=== PATIENT | male | born 1965 | race Caucasian/White ===

== ENCOUNTER 2023-04-03 10:56 | Outpatient (OUT) | payer OTHER, SELFPAY | END 2023-04-03 10:57 | disposition home or self-care (01) | LOC: SLEEP 10:56 | PROVIDERS: PCP Psychiatry & Neurology Neurology; Visit Provider Psychiatry & Neurology Neurology | DX: G47.33 Obstructive sleep apnea (adult) (pediatric) (principal); F51.01 Primary insomnia; G47.11 Idiopathic hypersomnia with long sleep time | CPT/HCPCS: 95806 ==

== ENCOUNTER 2023-04-05 14:10 | Outpatient (OUT) | payer OTHER, MEDICARE, SELFPAY ==
--- NOTE | 2023-04-05 14:20 | MR_ITS ---
The [address] [address] Patient Name: GILBERT PAZ MRN: [id number] date: 1965 Sex: M Assigned Patient Location: RAD Current Patient Location: RAD Accession/Order Number: [id number] Exam Date: 04/05/2023 15:35 Report Date: 04/05/2023 15:48 At the request of: BHASKAR DÍAZ Procedure: MR head/brain wo con EXAM: MRI of the brain without IV contrast. REASON FOR EXAM: Memory Impairment R41.3 COMPARISON: None FINDINGS: No intracranial masses. No abnormal restricted diffusion or evidence of evolving infarct. No evidence of intracranial hemorrhage. No hydrocephalus. Minimal small vessel gliosis. No substantial cerebral volume loss. 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 Paranasal sinuses and mastoid air cells are clear. Remainder unremarkable. MR/MR head/brain wo con IMPRESSION: 1. No acute intracranial abnormalities. 2. 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 Electronically authenticated by: AMELIA ANDRE Date: 04/05/2023 15:48
--- NOTE | 2023-04-05 14:21 | XR_ITS ---
The [address] [address] Patient Name: GILBERT PAZ MRN: [id number] date: 1965 Sex: M Assigned Patient Location: RAD Current Patient Location: [facility] Accession/Order Number: [id number] Exam Date: 04/05/2023 14:30 Report Date: 04/05/2023 14:43 At the request of: BHASKAR DÍAZ Procedure: XR foreign body eye EXAMINATION: XR foreign body eye HISTORY: Foreign Body Eye COMPARISON: No relevant comparison available. FINDINGS: ORBITS: Negative for a metallic foreign body. OTHER: Negative. XR/XR foreign body eye IMPRESSION: No metallic foreign body in the orbits Electronically authenticated by: MEGHANA PAINTER Date: 04/05/2023 14:43
== END 2023-04-05 14:11 | disposition home or self-care (01) ==
PROVIDERS: PCP Psychiatry & Neurology Neurology; Visit Provider Psychiatry & Neurology Neurology
DX: R41.3 Other amnesia (principal)
CPT/HCPCS: 70030; 70551

== ENCOUNTER 2023-06-21 12:03 | Emergency (ER) | payer OTHER, MEDICARE, SELFPAY ==
[2023-06-21 12:11] VITALS: BP 153/88; PULSE 81; RESP 18; TEMP 36.9; O2SAT 98; BMI 25.1
--- OUTSIDE RECORDS SUMMARY | 2023-06-21 12:15 | XMS_ITS | CCD ---
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 Name Role Phone GAROGREY Primary Care Physician [phone] MIK REDDY Primary Care Physician Mik Reddy Primary Care Unavailable Jeffy Wong Attending Unavailable Jeffy Wong Admitting Unavailable SAMINA, DR REBECA Wolff Admitting Unavailable SAMINA, DR REBECA Wolff Attending Unavailable DRU, DR NAVARRO Primary Care Unavailable SAMINA, DR REBECA Wolff Consulting Unavailable PAIGE RUIZ Consulting Unavailable ARELY JEFFERSON Admitting Unavailable NILLARELY Attending Unavailable MISC, DR NAVARRO Primary Care Unavailable ARELY JEFFERSON Consulting Unavailable Karen Cardenas Primary Care Physician MIK REDDY Referring Unavailable MIK REDDY Admitting Unavailable MIK REDDY Attending Unavailable Jonathon Wiggins Consulting Unavaila Jonathon Bennett Consulting Unavaila Jonathon Bennett Consulting Unavaila Alesia Us Admitting Unavailable Alesia Mcgee Attending Unavailable Alesia Mcgee Referring Unavailable MIK REDDY W Referring Unavailable MIK REDDY W Admitting Unavailable MIK REDDY Attending Unavailable Jonathon Wiggins Consulting Unavaila Jonathon Bennett Consulting Unavaila Jonathon Bennett Consulting Unavaila ble [place], Bashar X Attending Unavailable [place], Bashar X Referring Unavailable [place], Bashar X Admitting Unavailable Tamir Still Admitting Unavailable Tamir Still Attending Unavailable DO Sayda Diaz Attending Unavailable NONE, XXXX Referring Unavailable [place], Bashar X Attending Unavailable MIK REDDY W Attending Unavailable MIK REDDY W Attending Unavailable MIK REDDY W Referring Unavailable NILL, Arely Wolff Attending Unavailable NILL, Arely Wolff Attending Unavailable NILL, Arely Wolff Attending Unavailable Theresa, Karen Mason Attending Unavailable Theresa, Karen Mason Attending Unavailable Theresa, Karen Mason Attending Unavailable Theresa, Karen Mason Attending Unavailable RAMBASEKRHETT Attending Unavailable Allergies Allergy Classification Reported Allergen(s) Allergy Type Date of Onset Reaction(s) Facility (8 sources) Bee/Wasp/Ant venom; Translations: [Bee Stings] Drug allergy Edema (finding) [facility] [place] (1 source) Amino Acids Drug Allergy 3 [facility] (1 source) carvedilol Drug Allergy 3 [facility] (1 source) Flupenthixol Drug Allergy 3 [facility] (1 source) Niacin Drug Allergy 3 [facility] (1 source) Thyrotropin-Rele asing Hormone Drug Allergy 3 [facility] (1 source) No Known Medication Allergies; Translations: [No Known Medication Allergies] Propensity to adverse reactions (disorder) [facility] Repository Medications Current Medications Medication Drug Class(es) Dates Sig (Normalized) Sig (Original) Albuterol (Eqv-ProAir HFA) 90 mcg/inh inhalation aerosol (3 sources) Start: 09-18-2022 take 2 puff(s) by inhalation every six hours Albuterol (Eqv-ProAir HFA) 90 mcg/inh inhalation aerosol 2 puff(s), Inhalation, q6hr, 8.5 gm, Refill(s) 3, [facility], 178, cm, 06/07/22 14:08:00 EST, Height/Length Dosing, 83.7, kg, 06/07/22 14:08:00 EST, Weight Dosing Start Date: 09/18/22 Status: Ordered aspirin 81 mg chewable tablet (8 sources) Platelet Aggregation Inhibitor, Nonsteroidal Anti-inflammatory Drug Start: 09-18-2022 take 1 tablet by mouth once daily aspirin 81 mg Chew Tab 81 mg = 1 tab(s), Oral, Daily, # 90 tab(s), Refills(s) 0, Pharmacy: [facility], 178, cm, 06/07/22 14:08:00 EST, Height/Length Dosing, 83.7, kg, 06/07/22 14:08:00 EST, Weight Dosing Start Date: 09/18/22 Status: Ordered Start: 05-30-2022 take 1 tablet by edwar once daily aspirin 81 mg Chew Tab 81 mg = 1 tab(s), Oral, Daily, # 90 tab(s), Refills(s) 0, other reason (Rx) Start Date: 05/30/22 Status: Ordered cephalexin 500 mg oral capsule (2 sources) Cephalosporin Antibacterial Start: 10-20-2021 End: 10-27-2021 take 1 capsule by mouth four times daily cephalexin 500 mg Cap 500 mg = 1 cap(s), Oral, QID, X 7 day(s), # 28 cap(s), Refills(s) 0, Pharmacy: [facility], 178, cm, 10/20/21 11:24:00 EDT, Height/Length Dosing, 79.6, kg, 10/20/21 11:24:00 EDT, Weight Dosing Start Date: 10/20/21 Stop Date: 10/27/21 Status: Ordered finasteride 5 mg oral tablet (7 sources) 5-alpha Reductase Inhibitor Start: 12-08-2021 take 1 tablet by mouth once daily finasteride 5 mg Tab 5 mg = 1 tab(s), Oral, Daily, # 30 tab(s), Refills(s) 0, Pharmacy: [facility], 178, cm, 10/20/21 11:24:00 EDT, Height/Length Dosing, 79.6, kg, 10/20/21 11:24:00 EDT, Weight Dosing Start Date: 12/08/21 Status: Ordered Start: 09-12-2021 take 1 tablet by edwar once daily finasteride 5 mg Tab 5 mg = 1 tab(s), Oral, Daily, # 30 tab(s), Refills(s) 0, Pharmacy: [facility], 178, cm, 09/12/21 10:40:00 EDT, Height/Length Dosing, 79.3, kg, 09/12/21 10:40:00 EDT, Weight Dosing Start Date: 09/12/21 Status: Ordered FLUoxetine 60 mg oral tablet (10 sources) Serotonin Reuptake Inhibitor Start: 09-18-2022 take 1 tablet by mouth once daily FLUoxetine 60 mg oral tablet 60 mg = 1 tab(s), Oral, Daily, # 90 tab(s), Refills(s) 1, Pharmacy: [facility], 178, cm, 06/07/22 14:08:00 EST, Height/Length Dosing, 83.7, kg, 06/07/22 14:08:00 EST, Weight Dosing Start Date: 09/18/22 Status: Ordered Start: 03-14-2022 take 1 tablet by [facility] once daily FLUoxetine 60 mg oral tablet 60 mg = 1 tab(s), Oral, Daily, # 90 tab(s), Refills(s) 1, Pharmacy: [facility], 178, cm, 02/23/22 8:55:00 EDT, Height/Length Dosing, 78.5, kg, 02/23/22 8:55:00 EDT, Weight Dosing Start Date: 03/14/22 Status: Ordered Start: 02-03-2022 take 1 capsule by [facility] once daily FLUoxetine 40 mg Cap 40 mg = 1 cap(s), Oral, Daily, # 30 cap(s), Refills(s) 5, Pharmacy: [facility], 178, cm, 01/24/22 8:03:00 EDT, Height/Length Dosing, 76.4, kg, 01/24/22 8:03:00 EDT, Weight Dosing Start Date: 02/03/22 Status: Ordered Start: 01-24-2022 take 1 capsule by [facility] once daily FLUoxetine 40 mg Cap 40 mg = 1 cap(s), Oral, Daily, # 30 cap(s), Refills(s) 0, other reason (Rx) Start Date: 01/24/22 Status: Ordered fluticasone propionate 0.05 mg/actuat metered dose nasal spray (7 sources) Corticosteroid Start: 02-09-2023 take 2 spray(s) nasal route once daily fluticasone Nasal 0.05 mg/inh [place] 2 spray(s), Nasal, Daily, 16 gram, Refill(s) 3, each nostril, [facility], 177, cm, 01/15/23 11:28:00 EDT, Height/Length Dosing, 85.6, kg, 01/15/23 11:28:00 EDT, Weight Dosing Start Date: 02/09/23 Status: Ordered Start: 12-06-2022 take 2 spray(s) nasa l route once daily fluticasone Nasal 0.05 mg/inh [place] 2 spray(s), Nasal, Daily, 16 gram, Refill(s) 3, each nostril, [facility], 177.8, cm, 10/30/22 22:19:00 EDT, Height/Length Dosing, 82, kg, 10/30/22 22:19:00 EDT, Weight Dosing Start Date: 12/06/22 Status: Ordered Start: 01-24-2022 take 2 spray(s) nasa l route once daily fluticasone 0.05 mg/inh Nasal [place] 2 spray(s), Nasal, Daily, 16 gram, Refill(s) 2, each nostril, [facility], 178, cm, 01/24/22 8:03:00 EDT, Height/Length Dosing, 76.4, kg, 01/24/22 8:03:00 EDT, Weight Dosing Start Date: 01/24/22 Status: Ordered fluticasone 0.05 mg/inh Nasal [place] (5 sources) Start: 03-14-2022 take 2 spray(s) nasal route once daily fluticasone 0.05 mg/inh Nasal [place] 2 spray(s), Nasal, Daily, 16 gram, Refill(s) 2, each nostril, [facility], 178, cm, 02/23/22 8:55:00 EDT, Height/Length Dosing, 78.5, kg, 02/23/22 8:55:00 EDT, Weight Dosing Start Date: 03/14/22 Status: Ordered meloxicam 15 mg oral tablet (3 sources) Nonsteroidal Anti-inflammatory Drug Start: 12-12-2022 End: 06-10-2023 take 1 tablet by mouth once daily meloxicam 15 mg Tab 15 mg = 1 tab(s), Oral, Daily, X 90 day(s), # 90 tab(s), Refills(s) 1, Pharmacy: [facility], 177.8, cm, 12/12/22 7:58:00 EDT, Height/Length Dosing, 85.2, kg, 12/12/22 7:58:00 EDT, Weight Dosing Start Date: 12/12/22 Stop Date: 06/10/23 Status: Ordered Ventolin HFA 90 mcg/inh Aerosol (9 sources) Start: 12-13-2021 take 2 puff(s) by inhalation four times daily for wheezing Ventolin HFA 90 mcg/inh Aerosol 2 puff(s), Inhalation, QID for wheezing, 18 gram, Refill(s) 6, [facility], 178, cm, 12/13/21 8:56:00 EDT, Height/Length Dosing, 79.1, kg, 12/13/21 8:56:00 EDT, Weight Dosing Start Date: 12/13/21 Status: Ordered Completed/Discontinued Medications Medication Drug Class(es) Dates Sig (Normalized) Sig (Original) rizatriptan 10 mg oral tablet (11 sources) Serotonin-1b and Serotonin-1d Receptor Agonist Start: 02-01-2022 take 1 tablet by mouth every two hours as needed, then take 3 tablets by mouth every twenty-four hours as needed rizatriptan 10 mg Tab 10 mg = 1 tab(s), Oral, Daily, PRN for migraine headache, may repeat dose every 2 hours up to a maximum of 30 mg in 24 hours, # 12 tab(s), Refills(s) 0, Pharmacy: [facility], 178, cm, 01/24/22 8:03:00 EDT, Height/Length Dosing, 76.4, kg, 01/24/22 8:03:00 EDT, Weight Dosing Start Date: 02/01/22 Status: Ordered SUMAtriptan 25 mg oral tablet (1 source) Serotonin-1b and Serotonin-1d Receptor Agonist Start: 01-24-2022 SUMAtriptan 25 mg Tab 25 mg = 1 tab(s), Oral, Daily, PRN for migraine headache, may repeat dose after 2 hours up to a maximum of 200 mg in 24 hours, # 9 tab(s), Refills(s) 0, Pharmacy: [facility], 178, cm, 01/24/22 8:03:00 EDT, Height/Length Dosing, 76.4, kg, 09... Start Date: 01/24/22 Status: Ordered Problems Active Problems Problem Classification Problem Date Documented Da te Episodic/Chronic Abdominal hernia (2 sources) Inguinal hernia 08-01-2021 Episodic Anxiety disorders (3 sources) Obsessive-compulsive disorder; Translations: [Anxiety] 12-13-2021 Chronic Diabetes mellitus without complication (20 sources) Type 2 diabetes mellitus; Translations: [Type 2 diabetes mellitus without complication] Onset: 10-24-2021 08-01-2021 Chronic Essential hypertension (20 sources) Hypertensive disorder; Translations: [Essential hypertension] Onset: 09-12-2021 08-01-2021 Chronic Gout and other crystal arthropathies (2 sources) Gout 02-06-2023 Chronic Headache; including migraine (12 sources) Headache disorder; Translations: [Headache] Onset: 02-22-2022 01-28-2022 Episodic Hyperplasia of prostate (20 sources) Benign prostatic hypertrophy with outflow obstruction; Translations: [Benign prostatic hyperplasia with lower urinary tract symptoms] Onset: 09-12-2021 02-07-2021 Chronic Lung disease due to external agents (3 sources) Lung disease due to external agents; Translations: [Respiratory conditions due to other specified external agents] Onset: 09-12-2021 Episodic Mood disorders (16 sources) Mood disorder; Translations: [Unspecified mood [affective] disorder] Onset: 02-22-2022 Chronic Nonspecific chest pain (14 sources) Chest pain; Translations: [Chest pain, unspecified] Onset: 10-23-2021 Episodic Other aftercare (1 source) [facility] (current) use of aspirin; Translations: [SENIOR ESCROW OFFICER CURRENT USE OF ASPIRIN] Onset: 07-05-2022 Episodic Other aftercare (1 source) Other shelter (current) drug therapy; Translations: [OTH SENIOR ESCROW OFFICER CURRENT DRUG THERAPY] Onset: 07-05-2022 Episodic Other and unspecified benign neoplasm (1 source) Benign lipomatous neoplasm of skin and subcutaneous tissue of head, face and neck; Translations: [MILAGRO LIPOMAT NIKO SKIN SUBQ HEAD NECK] Onset: 07-05-2022 Episodic Other and unspecified benign neoplasm (1 source) Lipoma of head and neck; Translations: [Benign lipomatous neoplasm of skin and subcutaneous tissue of head, face and neck] Onset: 07-12-2022 Episodic Other and unspecified benign neoplasm (5 sources) Lipoma of skin and subcutaneous tissue of scalp 07-12-2022 Episodic Other connective tissue disease (20 sources) Fibromyalgia 02-07-2021 Episodic Other connective tissue disease (4 sources) Olecranon bursitis; Translations: [Olecranon bursitis, unspecified elbow] Onset: 10-20-2021 Episodic Other connective tissue disease (1 source) Fibromyalgia; Translations: [FIBROMYALGIA] Onset: 07-05-2022 Episodic Other diseases of kidney and ureters (1 source) Urinary tract obstruction; Translations: [Other obstructive and reflux uropathy] Onset: 09-12-2021 Episodic Other ear and sense organ disorders (13 sources) Tinnitus; Translations: [Tinnitus, unspecified ear] Onset: 02-23-2022 Episodic Other gastrointestinal disorders (1 source) Other intra-abdominal and pelvic swelling, mass and lump; Translations: [Other intra-abdominal and pelvic swelling, mass and lump] Onset: 09-12-2021 Episodic Other gastrointestinal disorders (18 sources) Groin mass 09-12-2021 Episodic Other liver diseases (20 sources) Elevated liver enzymes level 08-01-2021 Episodic Other lower respiratory disease (2 sources) Solitary nodule of lung; Translations: [Solitary pulmonary nodule] Onset: 08-26-2021 Episodic Other lower respiratory disease (1 source) Chronic cough; Translations: [Chronic cough] Onset: 08-26-2021 Episodic Other lower respiratory disease (2 sources) Hemoptysis 08-01-2021 Episodic Other lower respiratory disease (20 sources) Nodule of lung 08-01-2021 Episodic Other nervous system disorders (11 sources) 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 Other nutritional; endocrine; and metabolic disorders (9 sources) Overweight in adulthood with body mass index of 25 or more but less than 30; Translations: [Body mass index (BMI) 25.0-25.9, adult] Onset: 10-20-2021 Episodic Other nutritional; endocrine; and metabolic disorders (2 sources) Body mass index 25-29 - overweight 10-20-2021 Episodic Other screening for suspected conditions (not mental disorders or infectious disease) (1 source) Procedure carried out on subject; Translations: [Encounter for screening for other disorder] Onset: 02-22-2022 Episodic Other skin disorders (17 sources) Mass of head 08-01-2021 Episodic Other skin disorders (2 sources) Mass of body structure; Translations: [Localized swelling, mass and lump, head] Onset: 05-30-2022 Episodic Other skin disorders (3 sources) Localized swelling, mass and lump, head; Translations: [LOCALIZED SWELLING MASS AND LUMP HEAD] Onset: 06-28-2022 Episodic Other upper respiratory disease (18 sources) Allergic disorder of respiratory system 09-12-2021 Chronic Otitis media and related conditions (12 sources) Dysfunction of eustachian tube; Translations: [Eustachian tube disorder] Onset: 05-30-2022 01-28-2022 Episodic Residual codes; unclassified (20 sources) Memory impairment 02-07-2021 Episodic Residual codes; unclassified (6 sources) Amnesia; Translations: [Other amnesia] Onset: 09-12-2021 Episodic Residual codes; unclassified (3 sources) Patient encounter status; Translations: [Other specified health status] Onset: 10-20-2021 Episodic Residual codes; unclassified (1 source) Other amnesia; Translations: [Other amnesia] Onset: 01-18-2022 Episodic Residual codes; unclassified (2 sources) Body mass index 20-24 - normal; Translations: [Body mass index (BMI) 24.0-24.9, adult] Onset: 02-23-2022 Episodic Residual codes; unclassified (2 sources) Insomnia 02-06-2023 Episodic Residual codes; unclassified (2 sources) Poor short-term memory 02-09-2023 Episodic Screening and history of mental health and substance abuse codes (17 sources) Tobacco use and exposure - finding 10-20-2021 Chronic Spondylosis; intervertebral disc disorders; other back problems (3 sources) Degeneration of cervical intervertebral disc 12-12-2022 Chronic Spondylosis; intervertebral disc disorders; other back problems (1 source) Cervical radiculopathy; Translations: [Radiculopathy, cervical region] Onset: 02-23-2022 Episodic Unclassified (5 sources) Body mass index 20-24 - normal 12-13-2021 Past or Other Problems Problem Classification Problem Date Documented Da te Episodic/Chronic Other lower respiratory disease (1 source) Shortness of breath; Translations: [SHORTNESS OF BREATH] Onset: 10-24-2021 Episodic Poisoning by nonmedicinal substances (1 source) Toxic effect of smoke, accidental (unintentional), initial encounter; Translations: [TOXIC EFFECT SMOKE ACC INITIAL ENC] Onset: 10-24-2021 Episodic Results Test Name Value Interpretation Reference Range Facility Consultation Noteon 04-19-20 23 Consultation Note [id number] IFF Normal [facility] Ambulatory Visit Summaryon 1 05-26-2022 Ambulatory Visit Summary GILBERT PAZ :1965 Visit Date:03/26/2023 Ambulatory Visit Instructions Your Diagnosis Exposure to toxin Allergies Short-term memory loss, Memory impairment Sensitive to smells Your Care Team Attending Physician - Karen Garduno Primary Care Physician - Karen Garduno This Is Your Medications List albuterol (Albuterol (Eqv-ProAir HFA) 90 mcg/inh inhalation aerosol) aspirin (aspirin 81 mg Chew Tab) budesonide-formoterol (Symbicort 80/4.5 inhalation aerosol with adapter) fluoxetine (FLUoxetine 60 mg oral tablet) fluticasone nasal (fluticasone Nasal 0.05 mg/inh [place]) meloxicam (meloxicam 15 mg Tab) rizatriptan (rizatriptan 10 mg Tab) Procedures Performed Excision of lipoma (06/28/2022), Meniscal repair, Repair of ligament of knee joint, Repair of tendon of hand, Tonsillectomy. Discharge Vitals Temperature (Oral) 37.8 ?C Heart Rate (Peripheral) 68 Respiratory Rate 18 Blood Pressure 142/84 Height 177 cm Height 70 in Weight 88.8 kg Weight 195.36 lb BMI 28.34 What to do next Scheduled Follow-Up Appointments Sunday 8:20 AM EST With: Karen Garduno Where: [facility] [place] Normal [facility] Family Medicine Office/Clini c Noteon 03-26-2023 Family Medicine Office/Clinic Note HPI Staff Gilbert is a 57 year old male presenting for 6 week follow up. Has a stack of paper and wants to discuss disability dx today. Said he saw Dr Fontana, and that he was dx with OCD, but told by them he had fibromyalgia. Memory Impairment: JASON 02/09/23 was referred to [facility] in [place] Nodule of left lung/ chest pain : JASON 02/09/[address] Hernandez for eval. pt started on Symbicort. Pt has a hernia, LLQ, said it popped out this AM, causing some pain. History of Present Illness pt presents today for follow up Review of Systems PHQ Score Initial Depression Screen Score: 0 SCORE ROS - Provider Constitutional: no fever, no chills, no sweats, no fatigue Respiratory: no shortness of breath, no cough, no orthopnea, no wheezing. Cardiovascular: no chest pain, no palpitations, no edema. Neurologic: no headache, no dizziness, no numbness, no weakness. Physical Exam Vitals & Measurements T: 37.8 ?C(Oral) HR: 68(Peripheral) RR: 18 BP: 142/84 SpO2: 98% HT: 70 in HT: 177 cm WT: 88.8 kg WT: 195.36 lb BMI: 28.34 General: alert, no acute distress ENMT: oral mucosa moist, no pharyngeal erythema or exudate Cardiovascular: regular rate and rhythm, normal peripheral perfusion Respiratory: Lungs CTA, respirations non labored Extremities: no deformity, no trauma Neurological: oriented x 4, LOC appropriate for age, CN II-XII intact, motor strength equal & normal bilaterally, speech normal Assessment/Plan 1. Exposure to toxin (Z77.29: Contact with and (suspected) exposure to other hazardous substances) pt presents today for follow up on memory loss, over sensitivity to smells. pt was seen by neuro and they ordered additional testing but he was not able to complete the MRI due to multiple factors. he basically walked out and did not have it completed. pt has a pack of old paper work from when he had air quality testing done at his home. the results detected pyripoxyren, phosmet. captan. pt is very concerned about exposure to pesticides and would like further testing. will refer to hematology. pt is very irritated during visit and states this has been going on for years and no one will do anything about it. pt was redirected several times and educated on the importance of being compliant with what specialists are ordering for them. he was also seen by Dr. Hernandez and he ordered a sleep study which he is also refusing to do. Provider informed him that we are trying to get him some answers but if he doesn't follow through non of us are able to help him. pt then starts saying that his hernia keeps popping out.. but it only pops out when a cell phone is being used around him or he smells smoke. pt was encouraged to call the surgeon that is following him for the hernia. pt is very hard to follow at times and has grandiose ideas and flight of ideas as well. will refer to hematology and submersible pilot. RTC 3 months Ordered: [facility] External Ambulatory Referral 2. Allergies (T78.40XA: Allergy, unspecified, initial encounter) pt states he feels he has environmental allergies but has never been tested for anything. will refer to submersible pilot. Ordered: [facility] External Ambulatory Referral [facility] External Ambulatory Referral 3. Short-term memory loss, (R41.3: Other amnesia)Memory impairment pt still having memory loss. encouraged him to follow up with neurologist. Ordered: [facility] External Ambulatory Referral [facility] External Ambulatory Referral 5. 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 discussed possible ENT referral. but I would like for him to have MRI of brain completed first. Ordered: [facility] External Ambulatory Referral [facility] External Ambulatory Referral 6. Inguinal hernia (K40.90: Unilateral inguinal hernia, without obstruction or gangrene, not specified as recurrent) pt encouraged to contact surgeon that has been following him for this 7. BMI 28.0-28.9,adult (Z68.28: Body mass index [BMI] 28.0-28.9, adult) BMI education complete Follow-up No qualifying data available Problem List/Past Medical History Ongoing Allergies Anxiety Bipolar affective disorder, currently manic, moderate BMI 26.0-26.9,adult BMI 28.0-28.9,adult BPH with urinary obstruction Chest pain DDD (degenerative disc disease), cervical Elevated liver enzymes Eustachian tube dysfunction Exposure to toxin Fibromyalgia Gout Headache disorder HTN (hypertension) Inguinal hernia Insomnia Left cervical radiculopathy Left groin mass Lipoma of scalp Lung disease due to allergies Memory impairment Memory loss Mood disorder Nodule of left lung Sensitive to smells Short-term memory loss Tinnitus Tobacco non-user Type 2 diabetes mellitus Historical Type II diabetes mellitus Procedure/Surgical History Excision of lipoma (06/28/2022), Meniscal repair, Repair of ligament of knee joint, Repair of tendon of hand, Tonsillectomy. Medications Albuterol (Eqv-ProAir HFA) 90 mcg/inh (more content not included)... Normal [facility] Comment on above: Result Comment: Elec tronically Signed By: Karen Garduno\.br\Date and Time Signed: 03/26/23 11:00 EST Physician Referralon 023 Physician Referral [id number] [id number] TIFF Normal [facility] Physician Referral [id number] [id number] TIFF Normal [facility] CHEMISTRYOrdered By: SYSTEM SYSTEM on 03-14-2023 Cobalamin (Vitamin B12) [Mass/Vol] 293 pg/mL Normal 50 - 1500 pg/mL [facility] Remisol Folate [Mass/Vol] 11.0 ng/mL Normal >=6.7ng/mL [facility] Re misol TSH Qn 0.72 m[IU]/L Normal 0.34 - 5.60 mcIU/mL [facility] Remisol Consultation Noteon 03-14-20 Consultation Note [id number] IFF Normal [facility] Consultation Note [id number]#1.00T IFF Normal [facility] Folateon 03-14-2023 Folate [Mass/Vol] 11.0 ng/mL Normal >=6.7 [facility] Comment on above: Performed By: #### 2 [id number], [id number], [id number] ####[facility] [id number] [place] [address] Physician Orderon 03-14-2023 Physician Order [id number]#1.00T IFF Normal [facility] TSHon 03-14-2023 TSH Qn 0.72 m[IU]/L Normal 0.34-5.60 [facility] Comment on above: Performed By: #### 2 [id number], [id number], [id number] ####[facility] [address] [place] [address] Vit B12on 03-14-2023 Cobalamin (Vitamin B12) [Mass/Vol] 293 pg/mL Normal 50-1500 [facility] Comment on above: Performed By: #### 2 [id number], [id number], [id number] ####[facility] [address] [place] [address] Consent for Treatmenton Consent for Treatment [id number]#1.00T IFF Normal [facility] Consultation Noteon 02-24-20 Consultation Note [id number]#1.00T IFF Normal [facility] Consultation Noteon 02-22-20 Consultation Note [id number]#1.00TI FF Normal [facility] Physician Orderon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 radiculopathy means that a nerve in the neck (a cervical nerve) is pinched or bruised. This can happen because of an injury to the cervical spine (vertebrae) in the neck, or as a normal part of getting older. This condition can cause pain or loss of feeling (numbness) that runs from your neck all the way down to your arm and fingers. Often, this condition gets better with rest. Treatment may be needed if the condition does not get better. What are the causes? ? A neck injury. ? A bulging disk in your spine. ? Sudden muscle tightening (muscle spasms). ? Tight muscles in your neck due to overuse. ? Arthritis. ? Breakdown in the bones and joints of the spine (spondylosis) due to getting older. ? (more content not included)... Normal [facility] ED Patient Summaryon 023 ED Patient Summary (Inserted Image. Ashanti ble to display) [address] [address] Patient Discharge Instructions Person Information Name: GILBERT PAZ Age: 56 Years Arrival Date: 10/30/2022 22:06:10 Discharge Diagnosis: Cervical radiculopathy; Chest pain Primary Care Physician: MIK REDDY CNP Provider Information Primary Provider: Sayda Diaz DO Advanced Plant Maintenance Worker:None The exam and treatment you received in the Emergency Department were for an urgent problem and are not intended as complete care. It is important that you follow up with a doctor, nurse practitioner, or physician?s senior agricultural assistant for ongoing care. If your symptoms become worse or you do not improve as expected and you are unable to reach your usual health care provider, you should return to the Emergency Department. We are available 24 hours a day. JACKSONGILBERT has been given the following list of patient education materials, prescriptions and follow-up instructions: Follow-up Instructions: With: Address: When: MIK REDDY [address] [place], [place] [id number] Business (1) In 3 days 11/03/2022 Comments: You can use ibuprofen, Tylenol every 6 hours as needed for pain. You can take the steroids once daily until you have completed the course. You can use Robaxin every 8 hours as needed for pain. Please follow-up with your primary care doctor in the next 2 to 3 days. Please return to the ED for any new or worsening symptoms. In the event that this physician does not participate in your insurance network, please consult with your insurance company to find a nearby participating provider. Patient Education Materials: Nonspecific Chest Pain, Adult, Xubf-pm-Woah; Cervical Radiculopathy, Sldw-np-Clxh A MESSAGE TO ALL PATIENTS REGARDING OPIOIDS PRESCRIPTION OPIOIDS: WHAT YOU NEED TO KNOW Prescription opioids can be used to help relieve oaqgsnnj-he-folphu pain and are often prescribed following a surgery or injury, or for certain health conditions. These medications can be an important part of the treatment but also come with serious risks. It is important to work with your healthcare provider to make sure you are getting the safest, most effective care. WHAT ARE THE RISKS AND SIDE EFFECTS OF OPIOID USE? Prescription opioids carry serious risks of addiction and overdose, especially with prolonged use. An opioid overdose, often marked by slowed breathing, can cause sudden . The use of prescription opioids can have a number of side effects as well, even when taken as directed: ? Tolerance?meaning you might need to take more of the medication for the same pain relief ? Physical dependence?meaning you have symptoms of withdrawal when a medication is stopped ? Increased sensitivity to pain ? Constipation ? Nausea, vomiting, and dry mouth ? Sleepiness and dizziness ? Confusion ? Depression ? Low levels of testosterone that can result in lower sex drive, energy, and strength ? Itching and sweating RISKS ARE GREATER WITH: ? History of drug misuse, substance use disorder, or overdose ? Mental health conditions (such as depression or anxiety) ? Sleep apnea ? Older age (65 years and older) ? Avoid alcohol while taking prescription opioids. Also, unless specifically advised by your health care provider, medications to avoid include: ? Benzodiazepines (such as Xanax or Valium) ? Muscle relaxants (such as Soma or Flexeril) ? Hypnotics (such as Ambien or Lunesta) ? Other prescription opioids KNOW YOUR OPTIONS Talk to your health care provider about ways to manage your pain that don?t involve prescription opioids. Some of these options may actually work better and have fewer risks and side effects. Options may include: ? Pain relievers such as acetaminophen, ibuprofen, and naproxen ? Some medication that are also used for depression or seizures ? Physical therapy and exercise ? Cognitive behavioral therapy, a psychological, goal-directed approach, in which patients learn how to modify physical, behavioral, and emotional triggers of pain and stress. IF YOU ARE PRESCRIBED OPIOIDS FOR PAIN: ? Never take opioids in greater amounts or more often than prescribed. ? Follow up with your primary health care provider. o Work together to create a plan on how to manage your pain. o Talk about ways to help manage your pain that don?t involve prescription opioids. o Talk about any and all concerns and side effects. ? Help prevent misuse and abuse o Never sell or share prescription opioids. o Never use another person?s prescription opioids. ? Store prescription opioids in a secure place and out of reach of others (this may include visitors, children, friends, and family). ? Safely dispose of unused prescription opioids: Find your community drug take-back program or your pharmacy mail-back program, or fl (more content not included)... Normal [facility] Monitor Recordon 10-31-2022 Monitor Record [id number]#1.00 CD:127 Normal [facility] PT & PTTon 10-31-2022 aPTT Coag (PPP) [Time] 29.6 second(s) Normal 25.1-36.5 [facility] Comment on above: Result Comment: Para meter 15 days - 4 weeks 1 - 5 months 6 - 11 months 1 - 5 years 6 - 10 years 11 - 17 years PTT Mean: 35.4 (27.6-45.6) Mean: 33.5 (24.8-40.7) Mean: 32.4 (25.1-40.7) Mean: 31.6 (24.0-39.2) Mean: 31.6 (26.9-38.7) Mean: 31.0 (24.6-38.4) Pediatric Reference ranges were obtained from a study by Jose Luis Barron et al. prepared from 1437 samples obtained at 7 different centers using the same coagulation reagent and instrumentation as [facility]. Currently there are no coagulation studies available worldwide for children to 14 days, and no normal ranges. Heparin therapeutic range (represented by Anti-Factor Xa activity of 0.2 - 0.4 U/mL) corresponds to PTT of 56.6 - 109.0 sec. Performed By: #### 2 [id number], [id number], [id number], [id number], [id number], [id number] ####[facility] [address] [place] [address] INR Coag (PPP) [Relative time] 1.0 {INR} Invalid Interpretation Code [facility] Comment on above: Result Comment: INR results are specifically intended to assess patients stabilized on long-term Anticoagulation therapy suggested INR?s ?Less Intensive Anticoagulation? 2.0 ? 3.0 Conventional Range 3.0 ? 4.5 Performed By: #### 2 [id number], [id number], [id number], [id number], [id number], [id number] ####[facility] [address] [place] [address] PT Coag (PPP) [Time] 10.5 second(s) Normal 9.4-12.5 [facility] Comment on above: Result Comment: 15 d ays - 4 weeks 1 - 5 months 6 -11 months 1 ? 5 years 6 ? 10 years 11 -17 years Mean: 11.2 (9.5 ? 12.6) Mean: 11.0 (9.7 ? 12.8) Mean: 11.0 (9.8 ? 13.0) Mean: 11.3 (9.9 ? 13.4) Mean: 11.7 (10.0 ? 14.6) Mean: 11.8 (10.0 - 14.1) Pediatric Reference ranges were obtained from a study by Jose Luis Barron et al. prepared from 1437 samples obtained at 7 different centers using the same coagulation reagent and instrumentation as [facility]. Currently there are no coagulation studies available worldwide for children to 14 days, and no normal ranges. Performed By: #### 2 [id number], [id number], 9451646, [id number], [id number], [id number] ####[facility] [address] [place] [address] RAD - Preliminary Cat Scan R eporton 10-31-2022 RAD - Preliminary Cat Scan Report [id number]#1.00 CD:127 Normal [facility] Troponin 0 Hr.on 10-31-2022 Troponin I.cardiac [Mass/Vol] 4.00 pg/mL Low 15.90-38.40 [facility] Comment on above: Result Comment: The 95% CI (Confidence Interval) PPV (Positive Predictive Value) for myocardial infarction in females is 38 pg/mL, in males 51 pg/mL. The results should be used in conjunction with clinical conditions of myocardial infarction. (Access High Sensitivity Troponin I Instructions For Use, [employer], November 2017) Performed By: #### 2 [id number], [id number], [id number], [id number], [id number] ####[facility] [address] [place] [address] Troponin 3 Hr.on 10-31-2022 Troponin I.cardiac [Mass/Vol] 3.70 pg/mL Low 15.90-38.40 [facility] Comment on above: Result Comment: The 95% CI (Confidence Interval) PPV (Positive Predictive Value) for myocardial infarction in females is 38 pg/mL, in males 51 pg/mL. The results should be used in conjunction with clinical conditions of myocardial infarction. (Access High Sensitivity Troponin I Instructions For Use, [employer], November 2017) Performed By: #### 1 [id number] ####[facility] [address] [place] [address] XR Chest Single Viewon 10-31 XR Chest Single View Exam Date/Time: 10/30/2022 23:14 EDT Reason for Exam: Chest pain Report IMPRESSION: The study is within normal limits. CLINICAL HISTORY: Chest pain EXAMINATION: XR Chest Single View COMPARISON: FINDINGS: The cardiomediastinal silhouette is unremarkable. The lungs are free of infiltrates effusions or consolidations. There are no acute osseous changes. Ordering Provider: Sayda Diaz FINAL REPORT Dictated: 10/31/2022 9:08 am Horacio Vazquez MD, V. Signed (Electronic Signature): 10/31/2022 9:08 am Signed by: Horacio Vazquez MD, V. Transcribed by: MOHINI Technologist: SHAHRAM Technical Comments Radiation Dose: Ka,r in mGy = na DAP = na Normal [facility] eGFRon 10-31-2022 GFR/1.73 sq M.predicted among non-blacks MDRD (S/P/Bld) [Vol rate/Area] 103 mL/min/1.73 m2 Normal >=59 [facility] Comment on above: Order Comment: Order added by Discern Expert. 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 Kidney failure is indicated at less than 15 mL/min/1.73m2. Performed By: #### 2 [id number], [id number], [id number], 34108055, [id number], [id number] ####[facility] [address] [place] [address] Physician Referralon 023 Physician Referral [id number]#1.00 CD:127 Normal [facility] CT Chest w/o Contraston CT Chest w/o Contrast Exam Date/Time: 09/01/2022 07:10 EDT Reason for Exam: R91.1;Lung nodule Report IMPRESSION: 4 MM CALCIFIED NODULE LEFT UPPER LOBE WHICH IS CONSIDERED A BENIGN GRANULOMA. CT IS ESSENTIALLY NEGATIVE EXAM: CT Chest w/o Contrast INDICATION: Shortness of breath Lung nodule, R91.1 TECHNIQUE: Helical CT was performed through the chest without IV contrast. COMPARISON: None FINDINGS Lungs: 4 mm calcified nodule left upper lobe (3-63). This is a benign granuloma. No parenchymal lung nodule Pleura: No pleural effusion or thickening. Mediastinum: Mediastinum and georgina are normal. There are no pathologically enlarged lymph nodes. Vascular structures: There is no evidence for thoracic aortic aneurysm or dissection. Minimal coronary artery calcifications noted. Chest wall: The chest wall and lower neck are normal. Upper abdomen: The visualized portions of the upper abdomen are unremarkable. Bones: No aggressive skeletal lesions. All CT scans at this facility use dose modulation, iterative reconstruction, and/or weight based dosing when appropriate to reduce radiation dose to as low as reasonably achievable. Ordering Provider: Bharti Figueroa FINAL REPORT Dictated: 09/01/2022 4:12 pm Vitaly Jean MD Signed (Electronic Signature): 09/01/2022 4:12 pm Signed by: Vitaly Jean MD Transcribed by: MOHINI Technologist: TAMEKA [facility] Consent for Treatmenton Consent for Treatment [id number] D:127 [facility] Pre-Certification Formon Pre-Certification Form [id number]#1.00 CD:127 [facility] Ambulatory Visit Summaryon 0 07-12-2022 Ambulatory Visit Summary GILBERT PAZ :1965 Visit Date:07/12/2022 Ambulatory Visit Instructions Your Diagnosis Lipoma of scalp Your Care Team Attending Physician - ROSS MAGDALENO, Arely Wolff Primary Care Physician - MIK REDDY CNP This Is Your Medications List Contact prescribing physician if questions or concerns albuterol (Ventolin HFA 90 mcg/inh Aerosol) aspirin (aspirin 81 mg Chew Tab) fluoxetine (FLUoxetine 60 mg oral tablet) fluticasone nasal (fluticasone 0.05 mg/inh Nasal Olive) rizatriptan (rizatriptan 10 mg Tab) Procedures Performed Excision of lipoma (06/28/2022), Meniscal repair, Repair of ligament of knee joint, Repair of tendon of hand, Tonsillectomy. What to do next Scheduled Follow-Up Appointments Sunday 9:30 AM EDT Where: [facility] [place] Normal [facility] General Surgery Office/Clini c Noteon 07-12-2022 General Surgery Office/Clinic Note Chief Complaint post operative follow up HPI Staff 14 day post operative follow up post excisional biopsy left parietal scalp lipoma. Reports moderate discomfort, no use of pain medication. Scant serous drainage. History of Present Illness 2 weeks s/p excisional biopsy left parietal scalp lipoma, doing well, mild soreness; pathology consistent with lipoma. Review of Systems ROS - Provider Constitutional: no fever, no sweats, no weight loss. Eyes: no glasses, no blurred vision, no visual loss. ENMT: no dentures, no hoarseness, no swallowing difficulties, no hearing loss, no ear infection(s), no nose bleeds. Cardiovascular: normal blood pressure, no chest pain, regular heartbeat, no heart murmur. Respiratory: no shortness of breath, no cough, no asthma, no wheezing. Gastrointestinal: no nausea, no vomiting, no diarrhea, no constipation, no blood in stool, no change in bowel habits, no abdominal pain, no hepatitis. Genitourinary: no kidney stones, no urine infection, no dysuria. Musculoskeletal: no pain, no weakness. Skin: no changing moles, no rash, no skin lumps. Neurologic: no seizures, no epilepsy, no headache. Psychiatric: no emotional or psychiatric problem. Heme/Lymph: no bleeding problems, no anemia, no blood clots, no transfusions. Allergy/Immunologic: no swollen lymph nodes/glands, no IV drug abuse. Other: Additional ROS info: Except as noted in the above Review of Systems and in the History of Present Illness, all other systems have been reviewed and are negative or noncontributory. Assessment/Plan 1. Lipoma of scalp (D17.0: Benign lipomatous neoplasm of skin and subcutaneous tissue of head, face and neck) doing well, sutures removed; call with problems/questions. Follow-up No qualifying data available Problem List/Past Medical History Ongoing BMI 26.0-26.9,adult BPH with urinary obstruction Chest pain Elevated liver enzymes Eustachian tube dysfunction Fibromyalgia Headache disorder HTN (hypertension) Left cervical radiculopathy Left groin mass Lipoma of scalp Lung disease due to allergies Mass of head Memory impairment Mood disorder Nodule of left lung Tinnitus Tobacco non-user Historical Type II diabetes mellitus Procedure/Surgical History Excision of lipoma (06/28/2022), Meniscal repair, Repair of ligament of knee joint, Repair of tendon of hand, Tonsillectomy. Medications aspirin 81 mg Chew Tab, 81 mg= 1 tab(s), Oral, Daily FLUoxetine 60 mg oral tablet, 60 mg= 1 tab(s), Oral, Daily, 1 refills fluticasone 0.05 mg/inh Nasal Olive, 2 spray(s), Nasal, Daily, 2 refills rizatriptan 10 mg Tab, 10 mg= 1 tab(s), Oral, Daily, PRN Ventolin HFA 90 mcg/inh Aerosol, 2 puff(s), Inhalation, QID, PRN, 6 refills Allergies Bee Stings (Edema) Social History Alcohol - Denies Alcohol Use, 08/01/2021 Substance Abuse - High Risk, 08/01/2021 Current, Marijuana, Household substance abuse concerns: Yes., 08/01/2021 Tobacco - Denies Tobacco Use, 08/01/2021 Never (less than 100 in lifetime) Tobacco Use:. Never Smokeless Tobacco Use:., 06/07/2022 Family History Acute myocardial infarction: Father. Hypertension: Father. Immunizations Vaccine Date Status Comments influenza virus vaccine, inactivated - Not Given Patient Refuses Normal [facility] Comment on above: Result Comment: Elec tronically Signed By: ROSS MAGDALENO, Arely Ventura\Date and Time Signed: 07/12/22 13:31 EDT Coding Summary.on 07-11-2022 Coding Summary. CD:[id number] Gh0 bWw+PGhlYWQ+SY9CDDWwN25 vnIXtmP8hK9XOVAnGUbhlCG JKRAoINvRpbfSuOI1qfZYoA XJu IC8+XT4mVGAnNnesrSZyf6Q 8pBE3I93ole4wEDzxgFH6ZR JqOyAlyjhxs0pmiEg3MHqkE mluOyBt EYNonR46DYF1xS13Ls89pGZ xnKKpv1pasTr6XhIqHASnIO D0qNgvJTfro9FuZGOmU22ud ZCds0U1 CRUdxYktzTGnXoVcyGF1iX7 lHLmiutbic0rhdbhsChu5zz 42hZNfh3Q8eCI3E7RgzmF6J GJvbGQg OmuesSNSgX3ureebk3pzsyr eXeWzCYXgHBs0SJn8KNVnkG uxReKuQI34MVX3ENWcvvFrI 2FsLWFs pBmbYdL1t7L3Sq6DJ5GGWid cO4UNXCMBJBlyzRF+PC90cj 66U4IrCqzxXez9ZRMkAVL7w RN2qT5r TEFxQCstu5W9zXJ7V5EsulA itd2hy7joOQIlXPtcJ16quQ Ypk0R5YRRjhRT9JBCejMunV iBzaG93 Oyc+XMVlcXfxv8KwZcmxc0n iz2pbhHx2AaefXLWdhdNtmC dmJXK2a7UcXc0oVVZztON9d ZP5pC1y ClLeKyS9VIvvK350CtRvmZD wPqcbY25eQ9VedDJ+PHRyPj l0AZMuyXjlRN6gZ3MwNYWoq mctbGVm rSbfXN2kKPPcdkwlQPLjkH4 vAVZrN5t9SuVuGfC6VGwpM8 DfHRPbgwayVq82aB5kJeXgT lV2RWlk J4CwxxS1UKGnaKPiEKbvXXE 6E43rr8T9VCAeMFWtTDV3vV A1lV1ocGdpfygfeLQkzAqjm mVydGlj VUeiUPipB056VAKubJimZeS vZGluZyBEYXRlOiAgMDMvMT QvMjAyMzwvdGQ+QDUnRNY8p WxlPSAn iMTiQSpcIr9nxPkodTwvEZ2 aSSRwdpedDRSrdQ6cJUYwrR AgxUubTQ9eLHFmgwcrp287H iAxMHB0 CCItpVOlO0BzlX1yHhBeQSE wHZQhW4HxtNQwCYtwA937AV hkYoB3VPRwuuYwW3DkSDEzj WduOiB0 x3B5Vd8Kv9MizetoW9WfcGH qHkVvAxujNRg2E8GiGxbnmQ I+QD39BUQjXW23LGp8SVZ2z WxlPSdi DTDhQ8BkaU7aWzUdGXUuDKR kOyc+PHRhYmxlIHdpZHRoPS tnFIUzUmRgiEriDK2lEn6cB GVyLWNv aFwvpIIvQgFmq1foCVXkKAc lLQ7jkYqwY1VeePH5KCPvu1 l0Yc69C81iJ5VydYJ+PGNvb UB8pEH0 oC3iLrBaNqF6KRrbM724ZiE efMVkHkcad4osp8uoqMa1Hz O1AXXjtkElhUplMWY2q3GzM z67O64v IHdpZHRoPSIxNSUiIHZhbGl tiz4hlI0dYt7+REHsmQM5nN F5mC4bFrLoXtZ5VEvyT807B nRvcCIv Tcfkb0qil8wlqKf2JvDuHPO oehEtnBluNVK0y5SpLp63J9 BviLhym6MjFpr1wx61yGRua 8E0nGY2 Q5DtEXNshnktvIYtqQdbKU8 bYYSuyfzwAVVmaB7iEQBuU5 k2BwYcGcD8ECmkR0VgdvI7R GJvbGQg FZOceFVXyD7wwfody7kzmce wGpBwRHJwYPj2IDu4EYAxjO vrLyRsXVE1CqW6HRD5yGXqq X1ayNrz rgddzL0pOyd+CYS8dIBcqHW PDG2lJozzsAQ+WNNyICU8hX ugJIpsISTvsS0zLYZcV8b2E iAwLjA1 OFmuX4HcdbY5AFFskBAcGAI ohYHHgM1tdljlp8eqnxllZa FmEZNtBPv8QVc7JSGipWlhM iBsZWZ0 FzP8CAI2iKIkdK0inZlwdso gyM2mXuz+BipijTxvZPU6YD o3G1OyJjp6BEWjeZrkNX6ln GFkZGlu Fi9vcWvlpZtdEI0xGBQbjry ny629QgXlg6bsSQTigLFtSC jcNDA0X30ax7Y4WCYvZCXwF WN7bCE6 nE1oiPdgkkzisSTxiRpgvwE jdQfcWNnpLOjrI620CXSfxN kfTzMjSPz7G3ZeMjc8GZIhr QkiXU2l tSWpQJnnFk4lyZkuuOzfVB6 rEZErammhm952KlDfx9hzBM ZadBRfYKxyZQJ9H73ya3E8K CMwMDAw CTQ0nUZ8pP6yjRizoixcwHR mdDsgdmVydGljYWwtYWxpZ2 42BDGdiVonBiDpjOc7G7UzW dc5IGVq dDscJZ8mfCKlRLumUu5znJr kwDgmVV0gTEXgespim657Pu Jso5dwBCEwbDLiCYxyWLY9L 19bg2K3 SKGcOSViUBF0uLP9yG6yoNh nbjogbGVmdDsgdmVydGljYW ouNMlgR204CWKjmDubDuOcl GllbnQg EKdaUUn3Y1UaRngqxZP+PC9 0BXIyZX78zGKxoUScz6vmaW x5RrXyMMEqNIT5jNqaRAjlq 3JkZXIt I35snLDhm5S1ZPFikPmsaMT eFuFkpGH5qN1rMNvzxkhwe3 horwjgWcwgm5urwx59dE20W 29sIHdp ZHRoPSIzMCUiIHZhbGlnbj0 lqY3dCy7+DPWmmAT8xTR2nA 3sXONoFdO2NFzqQ820GsCpg CIvPjxj k0ork3zryMb1EuN4LVWcpwR soGlvLMU4v6QdSh71J96lEE dpZHRoPSIyMCUiIHZhbGlnb w5cxU0q Ii8+HIHycWD1vZS7lI3nIjU hBvR5DNajM920ImXibTDqDp phW25cW7FcrFQ+PFPuQbq4M CBzdHls NZ5wyBLdYFvgUd4rNNE7MoK oNxCnWSczL1AsWHUcqttywl rnrAV8LYGmUENhnO47Wa0vd DogMTBw rKFDxM1qxvxvi5scbjjwBdO oVWZnDFf9UEo0PNHspNfbJb YmPEM0BuN4QBD6wYHhbI9ks Glnbjog fL2rL4DeWXPrydfaMc43hS7 nWgKdReQ0ICwiAld+VEhPTU AWSOGKX4YPFqIsEPcfqRG+P HRkIHN0 hWsrSWtbTSPmdG4yRIGeT9w 8RmUnGiU8NOvnU2CnUVUpdz abGv20mF2pPzHcRzE1POtnK 0FrenL1 BSNmeVUtWZrfBTJ8X29fc9R 1SGRxVGFzGAT1bWX4bZ8fjG lnbjogbGVmdDsgdmVydGljY WwtYWxp R702XNBheEndHbE3MsB7MtE 1RzD6I4YnOid1XNLekCpvKB 9kmNWoNXhkLb4yzRnnvIyuN R3wRYMj tifrRHIcmE3kJTQkpGWyiXp dMA7pNCThesejm924NpXrQP R1LXTrcFYwP4QyeA2nWiGkU DAwMDAw R0BdvUTwVNenY961YWpeYnB 9DWPfjvOkZ9TuILFuuCxsGz W0b2N3Bc35OlCJXCYahlksk GQ+PHRk IOQ1tEosFVnfWBNnsG0eEZS uA4s0HuSzZcO4WGciX4EoBU TmbedxCx28aN0kKcBbPpT1H ZrrN5Ef qgG2JZZjaANfTVkrWBN4I16 tr6F3FCRiGBCkSVS2gUP1vZ 1hbGlnbjogbGVmdDsgdmVyd GljYWwt PLagD556ZLJtcNgsTw1irYB 0D4LpGux5ZGBdhTmkLJ7snH QbEIkfSr8ilBadhCosZU7wH TBpbjtw MWOdnU8iWYEkjQMzlGmlCT8 ySSBdbmwdt719QqNkSXL2QG JvxQLjV0QqvE7bArBqTTJqN OVkR4Zu zQTiKGqcS327ARqlLiI4SVP scqPhH5BdXGEliIfgTwI4d6 M4Gw9TuVRpBPApDY14MS91Z L25C9Au PjwvdGFibGU+PHRhYmxlIHd pZHRoPScxMDAlJyBzdHlsZT 4uXm7jPPKyGGCmuTuwfKXvZ xFsl2nl RRInBZudNR8dlKkwY3DeuPY 0RTXye4x5Aw86X07wE8MscY A+ETYykTU6vTG0yO6pObXeV bT8CMyz L213GcAtvXDfErjml1fff5l ibXf5WoEwOQYtxeKjbWodJU D7i5UcGu03D89fGAocSZFtH SIyMCUi RPEfyKwyng5biT0gFa3+PGN uoPC3gCE4xE7wVnEqIiV1GP ydL777KuFkzEKgBqveI65bJ 3JvdXA+ XHHsQaf4SBNylQvkOA6mbVM qBWdxAu0cVGL0OhYfPrSnYC ovQ2JkJTRtkezunneadWC2A DAuMDUw cP53Vk1srTlqZt3iUTFdKIH 4WPStuEKbG8NrlD2qYqYkIY BsIPZeP6IjyCJnSCrxP396K GxlZnQ7 RHHulsJvK8EpLGWzeQdeQjQ 8s0H3Sh6PtPpxmKRxBR1eEj GdIXj3Y7HkNjj4HQHvjZujQ Q0xiEAf BJtyVb3diGmtpKilYF0rPQI rwmzmr355EoTse3wrHFMcaV ZgWYukXWQ7F24fk8U8KGHmQ DAwMDA7 cOA7qS6doAilweuakEYzhBn tegViwBodLTvrPCrtF087RE BtgFonQkQDZmj6B6XdOyy7H CBzdHls PB1xaMAkQYwiNm9ieMamcYy pJL0dOBAhqnojg580LmIou4 brOVKwbXGpATqmERW5Q81gr 8M6PXYw IRMvMPQ5bQB6eJ5ljGjapob gbGVmdDsgdmVydGljYWwtYW hsM881KQThxWdyRd6WUzv7C 5RjDiz8 QVQymIzqGR0ozPXfTDqtFo4 clOhdyWoiYX3eYCJqzfehj1 25FtCyp1unQTPkiPCrCLmoZ UP0K19c l9E7KJXoNBWjZKG8zRZ5vS8 hbGlnbjogbGVmdDsgdmVydG wnMOfxSZtkB199BFBqsJboR lBheWVy OjwvdGQ+HH79ki60Y4QsFdf yCzj0NDDtYLX9xMB9pY3wWK QbDAlys6R3pAN9Z8DkblSxs w3nb6ii YXBz (more content not included)... [facility] Consent for Treatmenton Consent for Treatment [id number] D:127 [facility] Provider Letter FTon 06-30 Provider Letter [facility] (Inserted Image. Un able to display) June 30, 2022 GILBERT PAZ [address] [place] [id number] GILBERT PAZ 1965 Dear Gilbert, We have been trying to reach you with no success. It is important that you return our call regarding your cardiac stress test results upon receiving this letter. Also, at the time of your call, please provide us with your current information. Thank you for your prompt attention to this matter. Sincerely, Family [facility] [address] [place] [address] [facility] Operative Reporton 03-02-202 3 Operative Report [id number]#[id number] D:127 [facility] Coding Summary.on 06-15-2022 Coding Summary. CD:[id number] Gh0 bWw+PGhlYWQ+MA3VGCKqO47 geIKjeY1BP7xSBF4HWJUQDE IMFF0LRC9jbDA2BPfdL8Cqr iAv SehduVOqCN18RXf0XCQ8oXu uNDdhiL0juSMaS4u2ZdPtPH 75bD25MLhkNEWgSwT0UoUia jsgbWFy B2zeIoVrdBUmHfb+PHRhYmx lIHdpZHRoPScxMDAlJyBzdH qyGN2xDk8qZZBzXRGlfSfya HNlOiBj n7mlCDGaYMkqYA1piCkcF9E fuCV6ZFBjj8z3Mv95nQB+PH EaFLN8eNmfSObwt355XqGsq 4gyKJI1 iEWaPLdhXWS8R05iv5V0DFC vHNPlOII5oMH6tK4luAbsee qjV3ShjKXjZwD6VNH5jECut J8sqMrb dpkoqH6yHba+B74KQW3FVTZ HLK2LGks9K2CwQmbynTH+PC 41GBMeEE10vMPjzOTgj6ryt Qi4QlHg OEDeQSR5yXseHOfdw6XzDZH jB08yiDLip6D4HNOwyZnpgH JwMdHaaHN7wE2mYYpvrolxp 2hvdzsn Imtgw8ccpk94cO39A45dAId dPJAfLGR0TKIbBFFtsXzlkk 5ftH5hYn5+JFkpx1ech4opi Qy5FtKq VIQthtAjhVixQTW2f0YxGl1 1W7AytQnsy7UsBla3ef96pK Hxb5U4cEL5TKjpEAAqjI2pN WxlZnQ6 PTEsCvRezI28bLZnIPbiOs7 erEqtlDaoNM3tLEKquzjvUK XzpE4zZTMdgOPtoJkiEN9oT TBpbjtm c295YjXrSUX3CSAyeUNmN9F ldH9wOiUnFBFoWTRbO1EqdH OyBFinV158VLitKrD3ODKmw vDyC3Xu OLDlvYkpVhQ6n7Y6Rd4Gv6T xvwkoFPA1NHtsREZsZuO0Aa ReCoU6V6VrZvf6LLYiwSsmY P4lY4Md ADQaqvogntzkyVO6MNEtGLE luM36oCEsFHleXl7em2O3v0 92WBOhEGMwnW45Js0ayVuyD TBwdCBU jI6hiwjkc0aedcbmSuBhBTB rQGo9ECr5IZCmxMuyIePzFO Q5XiV6LSH2zIOseX8vbVhcc kfnwX9t Oyc+W23nzD1gEBK8IMY1fyi wHTBpgfObXT12HS98F6CvSh wvdGFibGU+PGRpdiBzdHlsZ H4eSzWl w7hkh0UkCBnzZ8IbPOHgYSd nQau3CBQkCIJ4ePL3yB9dGO VaJHjlk0V9lED0Y2RxquPcq g8lu9le KDZaOFrrG17rnSPlv5C2OBR zbIB9TXSxgXgpWpRqzL77Bm c+HDPjvPwrn9VaMzvfv4kck 6gphWi1 VfBdMTJpkkFrsYibUMU2l4I fSb55G60gXTtnMIEuEMYaEK MvWZKtwEpgbg4bjP1gXz2+P GNvbCB3 dSD6jO1vRKUtLiX9KBquQ13 1PlCtqUMjRzvtl8bht4pcqP x7EdBhBUQrdzMnwIooGHX5p 6QuMa80 L67hLAyaHTWnDDBkLKGnRQS mwJauxa1icJ0hWa2+PC9jb2 jafw87uC93gPC+RETiCJV2x WxlPSdw JYWceU4nGAshRkT7MHXdGnF qtJ28fLVtAKluJt7yvQpigM oyNT4oASKtrbcpf772QtKor 2xkIDEw jLXhTSxkZLD7O21lz4H6VDU qERYhOUN9iPN1wU1jmKbghk ogbGVmdDsgdmVydGljYWwtY JlhD376 IHRvcDsnPlBhdGllbnQgTmF pNFa5R9AkZks8XITmbZiiYQ 9hwYRtKFkzXn6cxLplsKskP C4bISOl skjxt241GbMws9ypPIAckBB cRTfxIKF3V14dj1H9NQKfFY ZcATV6cXX8fX5vzVqckfatb GVmdDsg taVtiTipAQneEQyjD126TOK bgTxaDgQdxkWaXAWubGQ0LT 80WB34hSIqt7O9gNJ6W1VxZ GRpbmct gtqzzVE6GPFuFYLphO78Ae3 lwYjwBl0eXPMuFGN1RPWyyO IgE1GouW1sYjTdSURdRHXpD 3RleHQt DAwzK201VDryPpH7OAKczaD eR1XpSWHvyHtsVfC5d6D3Qj 8UE3S6FS63XK06pDBgz6R2q GY1W5Oe TZIepsrlgxbosIT2WDRfUOJ ltO01Hl7poSphDg0gYZRvNW A4QRUdaXJhV0KhmI2zEcEbY DAwMDAw V3UhbSBsOHpuV586OWgcRbG 0BTIfsmGiA3EsFBGlmWnlVt P0f8Q9Ra5XFTz0LF34TH83z JAkk3B4 cLU7P0HmHKQsfcjikgjvfPL 9JMOnOHBxdD55Ib3iiUneDm 5sREYoSOV5RKSybZRtN1Oyf F7eAbVt OUUnHIYeW5OiiXUoOBpgO85 7ZYmsLqC8DKClpwIqO1RgCW OduCxjNuN9r7D3Jh0AYDVxY P87RRF8 eQM5WV67VK43S1AgHihoaGD ibGU+PHRhYmxlIHdpZHRoPS utHEQpIwMdjVmiDZ0nFe4mD GVyLWNv jPwvdNOqEmXxh8zeWPIxANj aPT8leZacS6CndFN3ZFQsv8 i2Pz73P34yH3JwlUV+PGNvb UV3yJQ7 vQ8lBfVxArO9YVytF791YeP ofDMkQfdtl2iqc7elnVd9Gk B4HUOawmBagIhfWIK8o7GdN g85U26i IHdpZHRoPSIxNSUiIHZhbGl lbz0jcM1zZu7+KSTutOQ9mP G4yE3mUbBqBqS1MHzpO232F nRvcCIv Oears6xct2bkhOu2QvQvSPH iycLxySigNGB5b4FqSp81L2 WshJmuv5JmRko0lk87pSLgw 7M7hIN7 A3LeTJEdbbrnzSRqrEyoAG9 eXKItiogvJUJeyO8jCNZpW2 l9QrZkQvD1ZAyuN1BonrP3O DEwcHQg MRaaLTS6R45vo3V9GRIaUBE mKAZ7lLV5yY1kkYeejrxcnV VmdDsgdmVydGljYWwtYWxpZ 246IHRv xPrpWLRqmY8mGRCwdNSwgOd wGQ0gTHAarthxHbBVM69IWq whUv4EREACVND0Q3TbQym2G CBzdHls WJ3seXQyJKhhIj4ruKtwfBd cSM9iWQLlzkzoEBRmrY9zJV YokZKktGtrTF0cSZTshcvud 250OiAx XUC3DLOotGEjN9OecX3rEvS rSXBfENDbQ1MjcCYmOXjyX7 74ODwxRmI9PNMgniZjK8GrN WFsaWdu VeW9t8Q0Xp0rZa1dJE2kPAU 7UE60SU54zTRgw8V7rMQ7U6 YqGVZdrvqagjtnpHP1TYQmJ DUwaW47 vESvDDltVt9bv0Y1q342YLI gXCQwbR52Og6ruLhsYFHlzL XFsB9ibbsuf8gtqxheNiAyG DAwMDt0 PWv6TVCmkDutEtChYER0KgS 3URR8dKQckC3xaHtcmsshhV 9wOyc+VFzaCMGpnpX4A1WzU ae0OJSr eYscQF0xoXQmVEcrOv5xpVr xrWvvZV6fPRYxtnqrCZHtaC 5oSHHesOAabCdoNQ5vMDUlq pokr517 EzRcFNI7AEEapKYuV8MlaR1 rYaWyKUJdPGLxL3WkeBRnHU gaK990KVkxOuS3BWPrvbXeR 2FsLWFs eCnsHrP8n5K9Qx8EVWmxDS9 1EU51pVMkm3Z5mYD4S7JiTC XenrnvuzjldTT9WLPtEFJdv K73eXPn BNtqGz7zo6T6w998XROuDHB xwE04Tr5rvRwnFVFivLAIeS 3azpqmp0dyfrpgOpQwIZCgY Pb1LNv1 RDDrvCbsIwLcUXO5OuG5WDF 2pIEyzL0sjBazmonojF7iPe c+M1Y7jKX0aORwvDabxGL+P Q60xm18 T1KtEpiiAfr8GWOjCQW0kZA 3pR8uAHUlVUiss5P9yBG6Q3 JswyRokp9kz3ysJSXzNWgkO 29sbGFw i8X6RQVbmKY7GMYgeYlaRtD pgD25Eyo+CZGmaVoji7MeUy uay5pho2pdiVe9CdJvBHDmv mFsaWdu OXS8t0UoEz31E90pKGreFUL iFFNaXUBbRSQbxPsyvn8ijV 9wIi8+SCCpdRV7rEO7yI3jM jAlIiB2 UYshK879AbFohGSzKfsyl4q xv6qrwHn2WdTlYMRccvAcyQ njNWL5v0EjKb02U8TrhUmnr 0RlWbn6 kk57aBZgb0O4yOO4O7JuHCX xhsbowDKadBwcKI2dIRRrlb aeEPOkqD5qDYFaF4u2PwDjU aY5SYbo H9DfunP0MGHymKZpFZRvcTY OqE5cibkjd3ytkdohKoJiQC JhKIr8MPo2WWAuoJczGtVpJ JP5DsS3 UDT5kEVreG0nhJeqgbtouE4 wOyc+KPr4v5keuTZvGK0wwR V9TT10YZ58zLSpv6C3lBD2X 3BhZGRp pixyvyvgaON9VLZsWIOrvH2 7Sv3wwOxgQw0mXMReRTI1PN MmoGGuX0StrI8wNsEyAXPkD NMaL3Fr nLVpIUeiX546ANcmBgO6QAN uthTbV3OrVKLnrMgeZwN8o7 Q6Pm1XJW32JZ25IW37oSPat 0W4sVV9 J3ZuWGAxxjyykmgtoWV6KXA rRJWpbS06St9ooIlzPp8yKW IhARX1TIXnyJJmU0ZpfB0fW iAjMDAw WJOnS5PhpMFpLBgsU530AHk yXqA6EJKizdFfI1ImLTOjdQ cfTdA2o6A8In3QRf59KD73F D44fZBv w3G7rVJ0C7EsVGKdnjdvoey tqBJ8CMCcUTXecJ65Cy5vfY otXd3yLLHzAVE6UZFkeUKtY 9YcnD3y IeSyWXPnIHVqA3IjmNMcTAl vD018LKnhGfG1QMXpbgFvZ3 OhYUHqnMmnHxU7e1E1Rb4TW Xllcjo8 S7XgAwngzSM+KU95RKMrXN9 0nJAzwEPeb2lpgYy2BzCbLV FvTUO3eHrrVByzq9KbEQBuT 29sbGFw c2U6 (more content not included)... Normal [facility] Consent for Treatmenton 05-31 Consent for Treatment [id number]#1.00C D:127 Normal [facility] Consent for Procedure/Surger yon 06-08-2022 Consent for Procedure/Surgery [id number]#1.00C D:127 Normal [facility] Consent for Procedure/Surgery [id number]#1.00C D:127 Normal [facility] Ambulatory Visit Summaryon 0 06-07-2022 Ambulatory Visit Summary GILBERT PAZ :1965 Visit Date:06/07/2022 Ambulatory Visit Instructions Your Diagnosis Mass of head Your Care Team Attending Physician - Arely JEFFERSON MD Primary Care Physician - MIK REDDY CNP Referring Physician - MIK REDDY CNP This Is Your Medications List Contact prescribing physician if questions or concerns albuterol (Ventolin HFA 90 mcg/inh Aerosol) aspirin (aspirin 81 mg Chew Tab) fluoxetine (FLUoxetine 60 mg oral tablet) fluticasone nasal (fluticasone 0.05 mg/inh Nasal Olive) rizatriptan (rizatriptan 10 mg Tab) Procedures Performed Meniscal repair, Repair of ligament of knee joint, Repair of tendon of hand, Tonsillectomy. Discharge Vitals Heart Rate (Peripheral) 72 Respiratory Rate 16 Blood Pressure 126/80 Height 178 cm Height 70 in Weight 83.7 kg Weight 184.14 lb BMI 26.42 What to do next Scheduled Follow-Up Appointments Sunday 8:00 AM EST Where: Cardiovascular Services Sunday 8:00 AM EST Where: Cardiovascular Services Sunday 9:30 AM EDT Where: [facility] Family [facility] Cory Normal [facility] Physician Referralon 023 Physician Referral [id number] CD:127 Normal [facility] Family Medicine Office/Clini c Noteon 05-30-2022 Family Medicine Office/Clinic Note Chief Complaint 3 mo F/u HPI Staff Gilbert is a 56 year old male who presents for 3 mo F/u. Patient continues on Fluoxetine 40mg. He states chest hurts all the time. Does not know if this is a side effect from the medication. He states does not have energy anymore. Ringing in ear-continues to be really bad per patient. He states ear has been plugged up. He did have labs completed. 03.10.2022 Memory- states is still terrible. History of Present Illness I have reviewed and verified the staff HPI to be accurate for this encounter. Patient did follow-up with neuropsychology for memory impairment issues they did feel there is no significant issue with memory and did not suggest more aggressive treatment of patient's depression/OCD. His fluoxetine was increased from 20 mg to 40 mg during last visit. Feel he is doing well with the medication adjustment, denies any noted side effects on the fluoxetine. He is having issues with tinnitus which has been a chronic problem however feels like it is worsening. Denies any vision changes, does have issues with chronic headaches also. Did have a CT scan on 09/15/2021 which was negative for any significant acute or chronic findings. Has had laboratory orders placed however has not had completed yet at this time. Denies any upper respiratory symptoms, or otalgia. mass on left scalp region. He admits this mass has been present for a prolonged period of time and increasing in size, did show to his previous PCP who felt it was benign and did not need treatment at the time. Patient denies any increase redness, drainage, any tenderness to the area. Chest pain/tightness: Onset: months Pain Location: Left side of chest radiate: into the left side of face Duration: Hours to persistently Characteristics: Tightness in the chest Aggravated by: Pushing on the left side of chest, worsened with activity. 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 Hx of hyperlipidemia: Yes Prescribed nitro: Denies Last time labs were checked: 03/10/2022 Aspirin therapy: Not currently Previous stress test ot EKG: Denies Review of Systems PHQ Score Initial Depression Screen Score: 0 ROS - Provider Constitutional: fever no, chills no, sweats no, weakness no Skin: rash no, lesions no, petechiae no Eye: eye pain no, discharge no, light sensitivity no, eye irritation no, double vision no, blurring no, vision loss no ENMT: ear pain no, ear drainage no, sore throat no, nasal congestion no , nasal drainage no hoarseness no Respiratory: chest discomfort no, shortness of breath no, cough no, orthopnea no, wheezing no Cardiovascular: chest pain no, palpitations no, edema no Gastrointestinal: nausea no, vomiting no, diarrhea no, GI bleeding no Genitourinary: dysuria no, hematuria no, discharge no, urinary frequency no, urinary urgency no Musculoskeletal: back pain no, trauma no Neurologic: headache no, dizziness no, numbness/tingling no, weakness no Physical Exam Vitals & Measurements T: 36.9 ?C(Temporal Artery) HR: 64(Peripheral) BP: 122/80 SpO2: 98% HT: 70 in HT: 178 cm WT: 84.7 kg WT: 186.34 lb BMI: 26.73 General: Well developed, well nourished, in no acute distress Head: Non-traumatic, there is a mobile mass noted to the left scalp region. No redness or erythema, tenderness, vesicles, or pustules noted to that area. Eyes: Pupils equal, round, and reactive to light. Conjunctivae and sclerae normal, and extraocular movements intact Ears: No deformity or lesion of external ear. Canals and TM appear normal bilaterally. TM's intact, not inflamed, with normal light reflex. Hearing grossly normal to conversational speech Nose: No deformity, discharge, inflammation, or lesions Mouth: Mucous membranes moist. Normal oropharynx, and posterior pharynx without lesions or exudates. Tongue normal Neck: Neck supple. No masses or palpable cervical nodes. Trachea midline. Thyroid without nodules, masses, tenderness, or enlargement Lungs: Normal respiratory effort and clear to auscultation Cardio: Regular rate and rhythm, normal S1 and S2, no murmur, no rub Abdomen: Soft, non-distended, non-tender, no inguinal hernias able to be palpated today in office. Extremity: No clubbing, cyanosis, edema, or deformity, with normal ROM in both upper and lower bilateral extremities Neurologic: Grossly normal Skin: No rashes, ulcerations, or suspicious lesions to visible skin Mental Status: Alert and oriented x3. Normal mood and affect Assessment/Plan 1. 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 Continue following with pulmonology as scheduled with surveillance of pulm nodule. 2. Mass of head (R22.0: Localized swelling, mass (more content not included)... Normal [facility] Comment on above: Result Comment: Elec tronically Signed By: BARRY RODRIGUEZ, MIK Vargas\.br\Date and Time Signed: 05/30/22 09:52 EST Patient Educationon 05-30-19 23 Patient Education ENT Eustachian Tube Dysfunction Eustachian tube dysfunction refers to a condition in which a blockage develops in the narrow passage that connects the middle ear to the back of the nose (eustachian tube). The eustachian tube regulates air pressure in the middle ear by letting air move between the ear and nose. It also helps to drain fluid from the middle ear space. Eustachian tube dysfunction can affect one or both ears. When the eustachian tube does not function properly, air pressure, fluid, or both can build up in the middle ear. What are the causes? This condition occurs when the eustachian tube becomes blocked or cannot open normally. Common causes of this condition include: ? Ear infections. ? Colds and other infections that affect the nose, mouth, and throat (upper respiratory tract). ? Allergies. ? Irritation from cigarette smoke. ? Irritation from stomach acid coming up into the esophagus (gastroesophageal reflux). The esophagus is the tube that carries food from the mouth to the stomach. ? Sudden changes in air pressure, such as from descending in an airplane or scuba diving. ? Abnormal growths in the nose or throat, such as: ? Growths that line the nose (nasal polyps). ? Abnormal growth of cells (tumors). ? Enlarged tissue at the back of the throat (adenoids). What increases the risk? You are more likely to develop this condition if: ? You smoke. ? You are overweight. ? You are a child who has: ? Certain defects of the mouth, such as cleft palate. ? Large tonsils or adenoids. What are the signs or symptoms? Common symptoms of this condition include: ? A feeling of fullness in the ear. ? Ear pain. ? Clicking or popping noises in the ear. ? Ringing in the ear. ? Hearing loss. ? Loss of balance. ? Dizziness. Symptoms may get worse when the air pressure around you changes, such as when you travel to an area of high elevation, fly on an airplane, or go scuba diving. How is this diagnosed? This condition may be diagnosed based on: ? Your symptoms. ? A physical exam of your ears, nose, and throat. ? Tests, such as those that measure: ? The movement of your eardrum (tympanogram). ? Your hearing (audiometry). How is this treated? Treatment depends on the cause and severity of your condition. ? In mild cases, you may relieve your symptoms by moving air into your ears. This is called popping the ears. ? In more severe cases, or if you have symptoms of fluid in your ears, treatment may include: ? Medicines to relieve congestion (decongestants). ? Medicines that treat allergies (antihistamines). ? Nasal sprays or ear drops that contain medicines that reduce swelling (steroids). ? A procedure to drain the fluid in your eardrum (myringotomy). In this procedure, a small tube is placed in the eardrum to: ? Drain the fluid. ? Restore the air in the middle ear space. ? A procedure to insert a balloon device through the nose to inflate the opening of the eustachian tube (balloon dilation). Follow these instructions at home: Lifestyle ? Do not do any of the following until your health care provider approves: ? Travel to high altitudes. ? Fly in airplanes. ? Work in a [employer]push[employer]urized cabin or room. ? Scuba dive. ? Do not use any products that contain nicotine or tobacco, such as cigarettes and e-cigarettes. If you need help quitting, ask your health care provider. ? Keep your ears dry. Wear fitted earplugs during showering and bathing. Dry your ears completely after. General instructions ? Take kcld-aik-xmspfog and prescription medicines only as told by your health care provider. ? Use techniques to help pop your ears as recommended by your health care provider. These may include: ? Chewing gum. ? Yawning. ? Frequent, forceful swallowing. ? Closing your mouth, holding your nose closed, and gently blowing as if you are trying to blow air out of your nose. ? Keep all follow-up visits as told by your health care provider. This is important. Contact a health care provider if: ? Your symptoms do not go away after treatment. ? Your symptoms come back after treatment. ? You are unable to pop your ears. ? You have: ? A fever. ? Pain in your ear. ? Pain in your head or neck. ? Fluid draining from your ear. ? Your hearing suddenly changes. ? You become very dizzy. ? You lose your balance. Summary ? Eustachian tube dysfunction refers to a condition in which a blockage develops in the eustachian tube. ? It can be caused by ear infections, allergies, inhaled irritants, or abnormal growths in the nose or throat. ? Symptoms include ear pain, hearing loss, or ringing in the ears. ? Mild cases are treated with maneuvers to unblock the ears, such as yawning or ear popping. ? Severe cases are treated with medicines. Surgery may also be done (rare). This information is not intended to replace advice given to you by your health (more content not included)... Normal [facility] Pre-Visit Planningon 023 Pre-Visit Planning - From: Kisha Valdez To: MIK REDDY CNP; Sent: 05/25/2022 15:01:09 EST Subject: Pre-Visit Planning Due Date/Time: 05/25/2022 15:01:00 EST Caller Name: GILBERT PAZ; Caller Number: Johs , M Jose Houser. *Based on your response below, can you please update the chronic problem list and address during this visit if appropriate?* During a pre-visit planning chart review, I noted the following documentation in the medical record: Current Problem List: Type 2 diabetes without complications. 02/23/2022 Annual Wellness Visit: Type II diabetes mellitus (E11.9: Type 2 diabetes mellitus without complications) Labs ordered today. Pt states he no longer has it due to losing over 100 lbs. 03/10/2022 Labs: Hgb A1c =5.3, Chol =247, and LDL Direct =160. Based on your medical judgment, can you please clarify which, if any, of the following conditions/complication s are present? I can update the Chronic Problem List with your response if you would like. -Type 2 diabetes mellitus with hypercholesterolemia -Type 2 diabetes mellitus- resolved -Other (please specify): -Unable to determine In responding to this request, please exercise your independent professional judgment. The fact that a question is asked does not imply that any particular answer is desired or expected. If you have any questions, please feel free to contact me per TEAMS or . Thank you! Kisha Valdez LPN From: MIK REDDY CNP To: Kisha Valdez; Sent: 05/27/2022 21:51:25 EST Subject: RE: Pre-Visit Planning Caller Name: JACKSON GILBERT Leonrado; Caller Number: Josh , Problem resolved on diagnosis list. Normal [address] [facility] CHEMISTRYOrdered By: SYSTEM SYSTEM on 03-10-2022 Cholesterol [Mass/Vol] 247 mg/dL High 120 - 200 mg/dL [facility] Cholesterol in HDL [Mass/Vol] 73 mg/dL Invalid Interpretation Code [facility] Cholesterol in LDL [Mass/Vol] 160 mg/dL High <=129mg/dL [facility] Cholesterol in VLDL [Mass/Vol] 7 mg/dL Normal 7 - 40 mg/dL [facility] Prostate specific Ag [Mass/Vol] 2.0 ng/mL Normal 0.1 - 3.5 ng/mL [facility] Triglyceride [Mass/Vol] 37 mg/dL Normal <=149mg/dL [facility] TSH Qn 0.91 m[IU]/L Normal 0.34 - 5.60 mcIU/mL [facility] CHEMISTRYOrdered By: Yadira huerta on 03-10-2022 HbA1c (Bld) [Mass fraction] 5.3 % Normal <=5.9% [facility] HEMATOLOGYOrdered By: SYSTEM SYSTEM on 03-10-2022 Basophils/100 WBC (Bld) 1.3 % Normal 0.0 - 2.0 % [facility] Basophils/Leukocytes Auto (Bld) [Pure # fraction] 0.1 E9/L Normal 0.0 - 0.2 E9/L [facility] Eosinophils/100 WBC (Bld) 1.0 % Normal 0.0 - 8.0 % [facility] Eosinophils/Leukocyt es Auto (Bld) [Pure # fraction] 0.1 E9/L Normal 0.0 - 0.5 E9/L [facility] Lymphocytes/100 WBC (Bld) 17.6 % Normal 14.0 - 50.0 % [facility] Lymphocytes/Leukocyt es Auto (Bld) [Pure # fraction] 1.0 E9/L Normal 1.0 - 4.0 E9/L [facility] Monocytes/100 WBC (Bld) 7.1 % Normal 4.0 - 14.0 % [facility] Monocytes/Leukocytes Auto (Bld) [Pure # fraction] 0.4 E9/L Normal 0.2 - 1.0 E9/L [facility] Neutrophils/100 WBC (Bld) 73.0 % Normal 36.0 - 75.0 % [facility] Neutrophils/Leukocyt es Auto (Bld) [Pure # fraction] 4.3 E9/L Normal 2.0 - 7.5 E9/L [facility] HEMATOLOGYOrdered By: Yadira Abad on 03-10-2022 Erythrocyte distribution width (RBC) [Ratio] 12.8 % Normal 10.9 - 14.2 % [facility] Hematocrit (Bld) [Volume fraction] 40.7 % Normal 37.7 - 49.0 % [facility] Hemoglobin (Bld) [Mass/Vol] 14.3 g/dL Normal 13.5 - 17.5 gm/dL [facility] MCH (RBC) [Entitic mass] 30.6 pg Normal 27.0 - 34.0 pg [facility] MCHC (RBC) [Mass/Vol] 35.1 g/dL Normal 31.4 - 36.0 gm/dL [facility] MCV (RBC) [Entitic vol] 87.2 fL Normal 80.0 - 100.0 fL [facility] Platelet mean volume (Bld) [Entitic vol] 6.4 fL Normal 6.4 - 10.8 fL [facility] Platelets (Bld) [#/Vol] 275.0 E9/L Normal 150.0 - 500.0 E9/L [facility] RBC (Bld) [#/Vol] 4.7 E12/L Normal 4.3 - 5.9 E12/L [facility] WBC corrected for nucl RBC Auto (Bld) [#/Vol] 6.0 E9/L Normal 4.0 - 11.0 E9/L [facility] CBC AUTO DIFFon 10-23-2021 BASO # 0.0 103/ul Normal 0.0-0.1 [facility] Comment on above: Performed By: #### C BC #### [facility] [address] [place] [address] Dr. Dimitri Pat Basophils/100 WBC (Bld) 0.4 % Normal 0.2-2.0 [facility] Comment on above: Performed By: #### C BC #### [facility] [address] [place] [address] Dr. Dimitri Pat EO # 0.1 103/ul Normal 0.0-0.7 [facility] Comment on above: Performed By: #### C BC #### [facility] [address] [place] [address] Dr. Dimitri Pat Eosinophils/100 WBC (Bld) 1.3 % Normal 0.9-7.0 [facility] Comment on above: Performed By: #### C BC #### [facility] [address] [place] [address] Dr. Dimitri Pat Erythrocyte distribution width (RBC) [Ratio] 11.9 % Normal 11.0-15.0 [facility] Comment on above: Performed By: #### C BC #### [facility] [address] [place] [address] Dr. Dimitri Pat Hematocrit (Bld) [Volume fraction] 42.3 % Normal 42.0-54.0 [facility] Comment on above: Performed By: #### C BC #### [facility] [address] [place] [address] Dr. Dimitri Pat Hemoglobin (Bld) [Mass/Vol] 14.1 g/dL Normal 14.0-18.0 [facility] Comment on above: Performed By: #### C BC #### [facility] [address] [place] [address] Dr. Dimitri Pat IG # 0.04 10e3/ul Critically high 0.00-0.03 [facility] Comment on above: Performed By: #### C BC #### [facility] [address] [place] [address] Dr. Dimitri Pat IG % 0.5 % Normal 0.0-0.5 [facility] Comment on above: Performed By: #### C BC #### [facility] [address] [place] [address] Dr. Dmiitri Pat LYMPH # 1.6 103/ul Normal 1.2-3.8 [facility] Comment on above: Performed By: #### C BC #### [facility] [address] [place] [address] Dr. Dimitri Pat Lymphocytes/100 WBC (Bld) 20.8 % Normal 20.5-60.0 [facility] Comment on above: Performed By: #### C BC #### [facility] [address] [place] [address] Dr. Dimitri Pat MANUAL DIFF REQ NO Normal [facility] Comment on above: Performed By: #### C BC #### [facility] [address] [place] [address] Dr. Dimitri Pat MCH (RBC) [Entitic mass] 31.1 pg Normal 25.9-34.0 [facility] Comment on above: Performed By: #### C BC #### [facility] [address] [place] [address] Dr. Dimitri Pat MCHC (RBC) [Mass/Vol] 33.3 g/dL Normal 29.9-35.2 [facility] Comment on above: Performed By: #### C BC #### [facility] [address] [place] [address] Dr. Dimitri Pat MCV (RBC) [Entitic vol] 93.4 fL Normal 80.0-94.0 [facility] Comment on above: Performed By: #### C BC #### [facility] [address] [place] [address] Dr. Dimitri Pat MONO # 0.5 103/ul Normal 0.3-0.8 [facility] Comment on above: Performed By: #### C BC #### [facility] [address] [place] [address] Dr. Dimitri Pat Monocytes/100 WBC (Bld) 7.2 % Normal 1.7-12.0 [facility] Comment on above: Performed By: #### C BC #### [facility] [address] [place] [address] Dr. Dimitri Pat NEUT # 5.3 103/ul Normal 1.4-6.5 [facility] Comment on above: Performed By: #### C BC #### [facility] [address] [place] [address] Dr. Dimitri Pat Neutrophils/100 WBC (Bld) 69.8 % Normal 43.0-75.0 [facility] Comment on above: Performed By: #### C BC #### [facility] [address] [place] [address] Dr. Dimitri Pat Platelet mean volume (Bld) [Entitic vol] 8.2 fL Critically low 9.5-13.5 [facility] Comment on above: Performed By: #### C BC #### [facility] [address] [place] [address] Dr. Dimitri Pat PLT 274 103/ul Normal 150-450 [facility] Comment on above: Performed By: #### C BC #### [facility] [address] [address] [address] Dimitri Pat RBC 4.53 106/ul Critically low 4.70-6.10 [facility] Comment on above: Performed By: #### C BC #### [facility] [address] [address] [address] Dimitri Pat WBC 7.5 103/ul Normal 4.0-11.0 [facility] Comment on above: Performed By: #### C BC #### [facility] [address] [place] [address] Dr. Dimitri Pat PROF 14(COMP METB)on 022 Albumin [Mass/Vol] 3.9 g/dL Normal 3.4-5.0 [facility] Comment on above: Performed By: #### C PILI HSTROPN #### [facility] [address] [place] [address] Dr. Dimitri Pat Albumin/Globulin [Mass ratio] 1.1 {ratio} Normal [facility] Comment on above: Performed By: #### C PILI HSTROPN #### [facility] [address] [place] [address] Dr. Dimitri Pat ALP [Catalytic activity/Vol] 55 U/L Normal 46-116 [facility] Comment on above: Performed By: #### C PILI HSTROPN #### [facility] [address] [place] [address] Dr. Dimitri Pat ALT [Catalytic activity/Vol] 114 U/L Critically high 16-63 [facility] Comment on above: Performed By: #### C PILI HSTROPN #### [facility] [address] [place] [address] Dr. Dimitri Pat Anion gap [Moles/Vol] 9.8 mmol/L Normal [facility] Comment on above: Performed By: #### C PILI HSTROPN #### [facility] [address] [address] [address] Dimitri Pat AST [Catalytic activity/Vol] 61 U/L Critically high 15-37 [facility] Comment on above: Performed By: #### C MP, HSTROPN #### [facility] [address] [place] [address] Dr. Dimitri Pat Bilirubin [Mass/Vol] 0.4 mg/dL Normal 0.2-1.0 [facility] Comment on above: Performed By: #### C MP, HSTROPN #### [facility] [address] [place] [address] Dr. Dimitri Pat Calcium [Mass/Vol] 9.2 mg/dL Normal 8.5-10.1 [facility] Comment on above: Performed By: #### C MP, HSTROPN #### [facility] [address] [place] [address] Dr. Dimitri Pat Chloride [Moles/Vol] 101 mmol/L Normal 98-107 [facility] Comment on above: Performed By: #### C MP, HSTROPN #### [facility] [address] [place] [address] Dr. Dimitri Pat CO2 [Moles/Vol] 30.1 mmol/L Normal 21.0-32.0 [facility] Comment on above: Performed By: #### C MP, HSTROPN #### [facility] [address] [place] [address] Dr. Dimitri Pat Creatinine [Mass/Vol] 0.79 mg/dL Normal 0.70-1.30 [facility] Comment on above: Performed By: #### C MP, HSTROPN #### [facility] [address] [place] [address] Dr. Dimitri Pat EGFR-AF DJIBOUTIAN >60 Normal >=60 [facility] Comment on above: Performed By: #### C MP, HSTROPN #### [facility] [address] [place] [address] Dr. Dimitri Pat EGFR-NON AF DJIBOUTIAN >60 Normal >=60 [facility] Comment on above: Performed By: #### C MP, HSTROPN #### [facility] [address] [address] [address] Dimitri Pat Globulin (S) [Mass/Vol] 3.7 g/dL Normal [facility] Comment on above: Performed By: #### C MP, HSTROPN #### [facility] [address] [place] [address] Dr. Dimitri Pat Glucose [Mass/Vol] 98 mg/dL Normal 74-106 [facility] Comment on above: Performed By: #### C MP, HSTROPN #### [facility] [address] [place] [address] Dr. Dimitri Pat Potassium [Moles/Vol] 3.9 mmol/L Normal 3.5-5.1 [facility] Comment on above: Performed By: #### C MP, HSTROPN #### [facility] [address] [place] [address] Dr. Dimitri Pat Protein [Mass/Vol] 7.6 g/dL Normal 6.4-8.2 [facility] Comment on above: Performed By: #### C MP, HSTROPN #### [facility] [address] [place] [address] Dr. Dimitri Pat Sodium [Moles/Vol] 137 mmol/L Normal 136-145 [facility] Comment on above: Performed By: #### C MP, HSTROPN #### [facility] [address] [place] [address] Dr. Dimitri Pat Urea nitrogen [Mass/Vol] 16.0 mg/dL Normal 7.0-18.0 [facility] Comment on above: Performed By: #### C MP, HSTROPN #### [facility] [address] [place] [address] Dr. Dimitri Pat Urea nitrogen/Creatinine [Mass ratio] 20.3 mg/mg Normal [facility] Comment on above: Performed By: #### C MP, HSTROPN #### [facility] [address] [place] [address] Dr. Dimitri Pat TROPONIN, HIGH SENSITIVITYon 10-23-2021 HSTROP 7.6 pg/mL Normal 4.0-76.1 [facility] Comment on above: Result Comment: CUT- OFF POINTS HAVE BEEN ESTABLISHED BASED ON THE FOURTH UNIVERSAL DEFINITIONS OF MYOCARDIAL INFARCTION. THE UPPER REFERENCE LIMIT (URL) OF TROPONIN, DEFINED THE 99TH PERCENTILE OF cTnI DISTRIBUTION IN A REFERENCE POPULATION, HAS BEEN CONFIRMED THE DECISION THRESHOLD FOR NH DIAGNOSIS. Performed By: #### C MP, HSTROPN #### [facility] [address] [address] [address] Dimitri Pat XR CHEST 1 Von 10-23-2021 XR CHEST 1 V EXAM: XR CHEST 1 V HISTORY: The patient is a 55-year-old male with chest pain. COMPARISON: 05/11/2019. FINDINGS: The lungs are well-inflated and clear with no confluent airspace infiltrates, pleural effusions, or pneumothoraces. The heart and mediastinum are within normal limits. The trachea is midline. Again seen are the old healed left rib fractures. IMPRESSION: No acute cardiopulmonary abnormalities. Electronically authenticated by: PAIGE RUIZ Date: 2021-10-22 23:31 Normal [facility] Vital Signs Date Time Vital Sign Value Performing Clinician Shahid jurado 01-15-2023 11:45-0400 Diastolic blood pressure 94 mm[Hg] [facility] 01-15-2023 11:45-0400 Mean blood pressure 116 mm[Hg] [facility] 01-15-2023 11:45-0400 Systolic blood pressure 159 mm[Hg] [facility] 01-15-2023 11:07-0400 Blood Pressure Location [facility] 01-15-2023 11:07-0400 Diastolic blood pressure 96 mm[Hg] [facility] 01-15-2023 11:07-0400 Heart rate 65 /min [facility] 01-15-2023 11:07-0400 SaO2% (BldA) [Mass fraction] 98 % Bharti Figueroa [facility] 01-15-2023 11:07-0400 Systolic blood pressure 154 mm[Hg] Bharti Christiansonm [facility] 06-07-2022 14:02-0500 Blood Pressure Location Arely NILL [facility] 06-07-2022 14:02-0500 Diastolic blood pressure 80 mm[Hg] Arely NILL [facility] 06-07-2022 14:02-0500 Heart rate 72 /min Arely NILL [facility] 06-07-2022 14:02-0500 Respiratory rate 16 /min Arely NILL [facility] 06-07-2022 14:02-0500 Systolic blood pressure 126 mm[Hg] Arely NILL [facility] 05-30-2022 08:41-0500 Blood Pressure Location MIK SIDELL [facility] 05-30-2022 08:41-0500 Body temperature 98.42 [degF] MIK SIDELL [facility] 05-30-2022 08:41-0500 Diastolic blood pressure 80 mm[Hg] MIK SIDELL [facility] 05-30-2022 08:41-0500 Heart rate 64 /min MIK SIDELL [facility] 05-30-2022 08:41-0500 SaO2% (BldA) [Mass fraction] 98 % MIK SIDELL [facility] 05-30-2022 08:41-0500 Systolic blood pressure 122 mm[Hg] MIK SIDELL [facility] 02-23-2022 08:50-0400 Blood Pressure Location MIK SIDELL [facility] 02-23-2022 08:50-0400 Diastolic blood pressure 76 mm[Hg] MIK SIDELL [facility] 02-23-2022 08:50-0400 Heart rate 64 /min MIK SIDELL [facility] 02-23-2022 08:50-0400 SaO2% (BldA) [Mass fraction] 98 % MIK SIDELL [facility] 02-23-2022 08:50-0400 Systolic blood pressure 124 mm[Hg] MIK SIDELL [facility] 01-24-2022 08:00-0400 Blood Pressure Location MIK SIDELL [facility] 01-24-2022 08:00-0400 Body temperature 97.16 [degF] MIK SIDELL [facility] 01-24-2022 08:00-0400 Diastolic blood pressure 76 mm[Hg] MIK SIDELL [facility] 01-24-2022 08:00-0400 Heart rate 62 /min MIK SIDELL [facility] 01-24-2022 08:00-0400 SaO2% (BldA) [Mass fraction] 95 % MIK SIDELL [facility] 01-24-2022 08:00-0400 Systolic blood pressure 138 mm[Hg] MIK SIDELL [facility] 10-20-2021 11:21-0400 Blood Pressure Location MIK SIDELL [facility] 10-20-2021 11:21-0400 Diastolic blood pressure 82 mm[Hg] MIK SIDELL [facility] 10-20-2021 11:21-0400 Heart rate 70 /min MIK SIDELL [facility] 10-20-2021 11:21-0400 SaO2% (BldA) [Mass fraction] 97 % MIK SIDELL [facility] 10-20-2021 11:21-0400 Systolic blood pressure 130 mm[Hg] MIK SIDELL [facility] 09-27-2021 09:00-0400 Blood Pressure Location MIK SIDELL [facility] 09-27-2021 09:00-0400 Diastolic blood pressure 78 mm[Hg] MIK SIDELL [facility] 09-27-2021 09:00-0400 Heart rate 70 /min MIK SIDELL [facility] 09-27-2021 09:00-0400 SaO2% (BldA) [Mass fraction] 96 % MIK SIDELL [facility] 09-27-2021 09:00-0400 Systolic blood pressure 126 mm[Hg] MIK SIDELL [facility] 09-12-2021 10:35-0400 Blood Pressure Location MIK SIDELL [facility] 09-12-2021 10:35-0400 Diastolic blood pressure 84 mm[Hg] MIK SIDELL [facility] 09-12-2021 10:35-0400 Heart rate 70 /min MIK SIDELL [facility] 09-12-2021 10:35-0400 SaO2% (BldA) [Mass fraction] 95 % MIK SIDELL [facility] 09-12-2021 10:35-0400 Systolic blood pressure 118 mm[Hg] MIK SIDELL [facility] 08-26-2021 09:16-0400 Blood Pressure Location Bashar Poquoson [facility] 08-26-2021 09:16-0400 Diastolic blood pressure 71 mm[Hg] Bashar Po[place]on [facility] 08-26-2021 09:16-0400 Heart rate 61 /min Bashar [place] [facility] 08-26-2021 09:16-0400 SaO2% (BldA) [Mass fraction] 98 % Bashar [place] [facility] 08-26-2021 09:16-0400 Systolic blood pressure 124 mm[Hg] Bashar [place]on [facility] Encounters Encounter Date Encounter Type Care Provider Facility Start: 06-25-2023 ambulatory Karen L Theresa Facility: [facility]el Start: 05-28-2023 End: 05-28-2023 ambulatory RHETT MARSH Not Available Start: 03-26-2023 End: 03-27-2023 ambulatory Karen L Theresa Facility:[facility] Start: 03-14-2023 End: 03-15-2023 ambulatory Tamir Still Facility:[facility] Start: 03-14-2023 End: 03-14-2023 Lab Drop off Tamir Still [facility] Start: 03-02-2023 End: 03-03-2023 ambulatory Alesia Mcgee Facility:[facility] Start: 03-02-2023 End: 03-02-2023 Patient encounter procedure Alesia Mcgee [facility] Start: 02-27-2023 ambulatory MIK SIDELL Facility: [facility] Start: 02-09-2023 End: 02-10-2023 ambulatory Karen L Theresa Facility:[facility] Start: 01-15-2023 End: 01-16-2023 ambulatory XXXX NONE Facility:[facility] Start: 01-15-2023 End: 01-15-2023 Patient encounter procedure Bashar X Po[place] [facility] Start: 12-12-2022 End: 12-13-2022 ambulatory MIK W ARLL Facility:[facility] Start: 10-31-2022 End: 10-31-2022 Emergency department patient visit DO Sayda Diaz Facility:[facility] Start: 09-01-2022 End: 09-02-2022 ambulatory Bashar X [place] Facility:[facility] Start: 09-01-2022 End: 09-01-2022 Patient encounter procedure Bashar X [place] [facility] Start: 07-12-2022 End: 07-13-2022 ambulatory Arely R NILL Facility: [facility] Start: 07-12-2022 End: 07-12-2022 Patient encounter procedure Arely R NILL [facility] [place] Start: 07-04-2022 End: 07-05-2022 ambulatory MIK W SIDELL Facility:[facility] Start: 06-28-2022 End: 06-29-2022 ambulatory ARELY NILL Facility: Start: 06-12-2022 End: 06-13-2022 ambulatory MIK W SIDELL Facility:[facility] Start: 06-12-2022 End: 06-12-2022 Patient encounter procedure MIK W SIDELL [facility] Start: 06-07-2022 End: 06-08-2022 ambulatory MIK W SIDELL Facility: [place] Start: 06-07-2022 End: 06-07-2022 Patient encounter procedure Arely R NILL [facility] [place] Start: 05-30-2022 End: 05-31-2022 ambulatory MIK W SIDELL Facility:[facility] Start: 05-30-2022 End: 05-30-2022 Patient encounter procedure MIK W SIDELL [facility] Start: 03-10-2022 End: 03-10-2022 Patient encounter procedure MIK W SIDELL [facility] Start: 02-23-2022 End: 02-23-2022 Well adult monitoring check done MIK W SIDELL [facility] Start: 02-23-2022 End: 02-23-2022 Patient encounter procedure MIK W SIDELL [facility] Start: 01-24-2022 End: 01-24-2022 Patient encounter procedure MIK W SIDELL [facility] Start: 01-18-2022 End: 01-18-2022 ambulatory Mik W Hertel Facility:[facility] Start: 10-23-2021 End: 10-23-[address] REBECA HAAS Facility: Start: 10-21-2021 End: 10-21-2021 Patient encounter procedure MIK W SIDELL [facility] Start: 10-20-2021 End: 10-20-2021 Patient encounter procedure MIK W SIDELL [facility] Start: 09-27-2021 End: 09-27-2021 Patient encounter procedure MIK W SIDELL [facility] Start: 09-21-2021 End: 09-21-2021 Patient encounter procedure MIK W SIDELL [facility] Start: 09-15-2021 End: 09-15-2021 Patient encounter procedure MIK W SIDELL [facility] Start: 09-12-2021 End: 09-12-2021 Patient encounter procedure MIK W SIDELL [facility] Start: 09-02-2021 End: 09-02-2021 Patient encounter procedure MIK W SIDELL [facility] Start: 08-26-2021 End: 08-26-2021 Patient encounter procedure Bharti Figueroa [facility] Procedures Date Procedure Procedure Detail Performing Clinician Start: 06-28-2022 Excision of lipoma Scott aepeggy NILL Comment on above: left parietal scalp Start: 02-23-2022 Vaccine refused by patient MIK REDDY Knee region structur e (body structure) Bharti Figueroa Repair of ligament o f knee joint Arely NILL Repair of meniscus Arely N ILL Repair of tendon of hand Diego hacrason NILL Thumb structure (bod y structure) Bharti Figueroa Tonsillectomy Bharti Figueroa Immunizations Immunization Date Immunization Notes Care Provider Fa cility NEGATED: Highlighted row has not occurred!01-24-2022 influenza virus vaccine, unspecified formulation MIK REDDY [facility] Payers Date Payer Category Payer Private Health Insurance 2022 Self-pay 1965 Unknown [id number] 2.16.84 [id number] 1965 Unknown [id number] 2.16.84 [id number] 1965 Unknown [id number] 2.16.8 40.1.051511.3.579.2.727 1964 Unknown [id number] 2.16.8 40.1.943983.3.579.2.727 1964 Unknown [id number] 2.16.8 40.1.031704.3.579.2.727 1964 Unknown [id number] 2.16.8 40.1.501544.3.579.2.727 1964 Unknown [id number] 2.16.8 40.1.035794.3.579.2.727 1964 Unknown [id number] 2.16.8 40.1.027195.3.579.2.72 1964 Unknown [id number] 2.16.8 40.1.427631.3.579.2.72 1964 Unknown [id number] 2.16.8 40.1.816447.3.579.2.72 1964 Unknown [id number] 2.16.8 40.1.969008.3.579.2. 1964 Unknown [id number] 2.16.8 40.1.245722.3.579.2. 1964 Unknown [id number] 2.16.8 40.1.500866.3.579.2.72 1964 Unknown [id number] 2.16.8 40.1.261360.3.579.2.72 1964 Unknown [id number] 2.16.8 40.1.634025.3.579.2.72 1964 Unknown [id number] 2.16.8 40.1.527373.3.579.2.72 1964 Unknown [id number] 2.16.8 40.1.282595.3.579.2.72 1964 Unknown [id number] 2.16.8 40.1.025901.3.579.2.72 1964 Unknown [id number] 2.16.8 40.1.874126.3.579.2. 1964 Unknown [id number] 2.16.84 0.1.733975.3.579.2.1259 1960 Medicare [id number] 1960 Private Health Insurance [id number] Unknown [id number] 2.16.8 40.1.012795.3.579.2.531 Social History Date Type Detail Facility Start: 08-01-2021 End: 02-09-2023 Tobacco smoking status Never smoked tobacco (finding) [facility] Tobacco smoking status Never [facility] Sex Assigned At Male [facility] Functional Status Date Assessment Result Facility 01-15-[address] [facility] 06-07-2022 [facility] Status N[facility] Status N/A [facility] 02-23-2022 Functional Status N/A [facility] 01-24-2022 Functional Status N/A [facility] 10-20-2021 Functional Status N/A [facility] Clinical Notes 02-28-2020 to 07-06-2022 LaboratoryRadiologyLaboratoryRadiologyLaboratoryRadiologyLaboratoryRadiologyLabo ratoryRadiologyLaboratoryRadiologyLaboratoryRadiologyLaboratoryRadiologyLaborato ryRadiologyLaboratoryRadiologyLaboratory Note Date & Type Note Facility 07-06-2022 Note Echocardiology Procedure Exam Date/Time Accession # Ordering Echo Transthoracic 07/04/2022 09:19 EST [id number] MIK REDDY CNP Complete CPT code 20178 [id number] Reason for Exam (Echo Transthoracic Complete) .;Chest pain Report Version: 1 Study ID: [id number] [facility] [address] [place] [address] Adult Echocardiogram Report Name: GILBERT PAZ Study Date: 07/04/2022, 8: 15 AM Patient Location: [facility] : 1965 (MM/DD/YYYY) Gender: Male Age: 56 Years Height: 177.8 cm BP: 145 / 89 mmHg Weight: 81.648 kg HR: 57 bpm BSA: 2.00 m? Ordering Physician: MIK REDDY Referring Physician: MIK REDDY Performed By: Cherry Jain RDCS Reason For Study: Chest pain History: Chest Pain Interpretation Summary Normal LV and RV. No significant valve disease. Normal estimated PA pressure. Normal diastolic filling pattern. Procedure A complete two-dimensional transthoracic echocardiogram was performed (2D, M-mode, spectral and color flow Doppler). Study quality is good. Left Ventricle The left ventricle is normal in size. There is normal left ventricular wall thickness. Ejection Fraction = 60-65%. The left ventricular wall motion is normal. Normal diastolic function. Left Atrium The left atrial size is normal. Right Atrium Echocardiology Report Right atrial size is normal. Right Ventricle The right ventricular systolic function is normal. The right ventricle is normal size. The right ventricular wall motion is normal. Aortic Valve The aortic valve is trileaflet. No aortic regurgitation. There is no aortic stenosis. Mitral Valve The mitral valve is normal in structure and function. There is no mitral regurgitation noted. No mitral valve stenosis. Tricuspid Valve Structurally normal tricuspid valve. No evidence of tricuspid regurgitation. Pulmonic Valve No evidence of stenosis. There is no pulmonic valve regurgitation. Arteries The aortic root is normal in size. Normal ascending aorta. Pulmonary artery diameter is normal. Venous The inferior vena cava is normal in size, and collapses normally with respiration. Effusion There is no pericardial effusion. Left Ventricle IVSd: 1.30 cm LVIDd: 4.9 cm LVPWd: 1.15 cm LVIDs: 2.5 cm EDV(MOD-sp4): 124.0 ml LVLd ap4: 8.4 cm ESV(MOD-sp4): 39.0 ml LVLs ap4: 6.7 cm EDV(MOD-sp2): 133.0 ml LVLd ap2: 8.9 cm ESV(MOD-sp2): 45.7 ml LVLs ap2: 7.4 cm Right Ventricle TAPSE: 2.6 cm Aortic Valve LV V1 max: 93.4 cm/sec LV V1 max P.5 mmHg Ao max P.6 mmHg Ao V2 max: 162.9 cm/sec Tricuspid Valve TR max P.4 mmHg TR max ede: 293.2 cm/sec Aorta Ao root diam: 3.2 cm asc Aorta Diam: 3.4 cm Atria LA dimension: 4.0 cm Diastolic funtion Med Peak E' Ede: 7.5 cm/sec Lat Peak E' Ede: 10.0 cm/sec MV dec time: 0.26 sec MV E max ede: 89.5 cm/sec MV A max ede: 62.6 cm/sec Ao max P.6 mmHg Ao root area: 8.0 cm? Ao root diam: 3.2 cm Echocardiology Report Ao V2 max: 162.9 cm/sec AV VR: 0.57 EDV(MOD-sp4): 124.0 ml EDV(Teich): 114.5 ml EF(MOD-sp4): 68.5 % EF(Teich): 79.8 % ESV(MOD-sp4): 39.0 ml ESV(Teich): 23.1 ml FS: 48.6 % IVC Diam: 1.64 cm IVSd: 1.30 cm LA dimension: 4.0 cm LV V1 max: 93.4 cm/sec LV V1 max P.5 mmHg LVIDd: 4.9 cm LVIDs: 2.5 cm LVLd ap4: 8.4 cm LVLs ap4: 6.7 cm LVPWd: 1.15 cm MV A max ede: 62.6 cm/sec MV dec time: 0.26 sec MV E max ede: 89.5 cm/sec MV E/A: 1.43 RAP systole: 3.0 mmHg RVDd: 3.4 cm RVIDd/LVIDd: 0.69 RVSP(TR): 37.4 mmHg SV(MOD-sp4): 85.0 ml TAPSE: 2.6 cm TR max P.4 mmHg TR max ede: 293.2 cm/sec asc Aorta Diam: 3.4 cm E/E' Lat: 8.9 E/E' Med: 11.9 EDV(MOD-sp2): 133.0 ml EF (MOD-bp): 66.8 % EF(MOD-sp2): 65.6 % ESV(MOD-sp2): 45.7 ml LA Vol Index: 22.0 ml/m? Lat Peak E' Ede: 10.0 cm/sec LVLd ap2: 8.9 cm LVLs ap2: 7.4 cm Med Peak E' Ede: 7.5 cm/sec Electronically signed by: Jonathon Wiggins MD 07/06/2022, 8: 32 PM FINAL REPORT Dictated: 07/04/2022 8:15 am Jonathon Wiggins MD. Signed (Electronic Signature): 07/06/2022 8:32 pm Signed by: Jonathon Wiggins MD Transcribed by: JULISSA Technologist: [facility] 06-28-2022 Note OPERATIVE NOTE OPERATION DATE: 06/28/2022 PREOPERATIVE DIAGNOSIS: Lipoma left parietal scalp. POSTOPERATIVE DIAGNOSIS: Lipoma left parietal scalp. PROCEDURE: Excisional biopsy left parietal scalp lipoma. SURGEON: Arely Jefferson M.D. ANESTHESIA: Local with 1% lidocaine with epinephrine. ESTIMATED BLOOD LOSS: Less than 7 mL. INDICATIONS AND CONSENT: Patient is a 56-year-old male with a 15 year history of a slowly enlarging mass in the left parietal scalp that is soft but non-mobile. Indications, risks, benefits, alternatives of proceeding with excisional biopsy under local anesthesia were explained extensively to the patient, including the risks of bleeding, infection, scarring, pain, recurrence, need for further surgery. All of his questions were answered. Informed consent was obtained. PROCEDURE: Patient brought to the procedure room, placed in the right lateral decubitus position. The hair was matted down with Surgilube. It was prepped and draped in the usual sterile fashion. The skin overlying and surrounding the lesions was anesthetized with 1% lidocaine with epinephrine. Incision was made over the long axis of the lesion, carried down through subcutaneous tissue using sharp dissection as well as needle tip electrocautery. There was noted to be a scarred lipoma that was subgaleal. It was freed up circumferentially and sent off to Pathology. Total length of the specimen was 3.5 cm. Wound was irrigated. There was good hemostasis. The galea was closed with interrupted 4- 0 Monocryl suture. The skin was closed with 4-0 nylon mattress and simple sutures. There was good hemostasis. Patient tolerated procedure well, was discharged to home in good condition. CC: Family physician [facility] 06-22-2022 Note Echocardiology Procedure Exam Date/Time Accession # Ordering ECG Stress Exercise 06/12/2022 08:40 EST [id number] MIK REDDY CNP CPT code 62125 Reason for Exam (ECG Stress Exercise) .;Chest pain Report PROCEDURE: Treadmill exercise stress test. INDICATIONS: Chest pain. PROCEDURE DETAILS: The patient was stressed according to the Erick protocol, exercised for 8 minutes 11 seconds achieving a heart rate of 141 beats per minute which was 86% maximal age-predicted heart rate and 10.1 METS. The patient had normal blood pressure response. EKG was sinus rhythm with nonspecific ST-T wave changes, inferior T wave inversion. During exercise, there were no significant EKG changes. Recovery phase was normal. CONCLUSIONS: Negative treadmill exercise stress test. Overall low risk stress. FINAL REPORT Signed (Electronic Signature): 06/22/2022 10:43 am Signed by: Rosalie MAGDALENO, Jonathon Eugene Transcribed by: adam Technologist: [facility] 06-07-2022 Note Chief Complaint consultation for scalp mass HPI Staff 56 year old male presents on consultation from [facility] for left parietal scalp mass. Present many years. Gradual increase in size. Intermittent drainage of serous fluid. Tender to palpation. History of Present Illness 56 yo male with h/o htn, fibromyalgia, BPH, referred for left scalp subcutaneous mass; present for many years, gradually increasing in size; no pain, occasional serous drainage around area; no h/o other similar lesions; no injury to area; on baby asa, no NSAIDs. Review of Systems PHQ Score Initial Depression Screen Score: 0 ROS - Provider Constitutional: no fever, no sweats, no weight loss. Eyes: no glasses, no blurred vision, no visual loss. ENMT: no dentures, no hoarseness, no swallowing difficulties, no hearing loss, no ear infection(s), no nose bleeds. Cardiovascular: normal blood pressure, no chest pain, regular heartbeat, no heart murmur. Respiratory: no shortness of breath, no cough, no asthma, no wheezing. Gastrointestinal: no nausea, no vomiting, no diarrhea, no constipation, no blood in stool, no change in bowel habits, no abdominal pain, no hepatitis. Genitourinary: no kidney stones, no urine infection, no dysuria. Musculoskeletal: no pain, no weakness. Skin: no changing moles, no rash, yes skin lumps. Neurologic: no seizures, no epilepsy, no headache. Psychiatric: no emotional or psychiatric problem. Heme/Lymph: no bleeding problems, no anemia, no blood clots, no transfusions. Allergy/Immunologic: no swollen lymph nodes/glands, no IV drug abuse. Other: Additional ROS info: Except as noted in the above Review of Systems and in the History of Present Illness, all other systems have been reviewed and are negative or noncontributory. Physical Exam Vitals & Measurements HR: 72(Peripheral) RR: 16 BP: 126/80 HT: 70 in HT: 178 cm WT: 83.7 kg WT: 184.14 lb BMI: 26.42 HEENT: normal conjunctiva, sclera clear, no scleral icterus, EOM intact, PERRLA, oral mucosa moist without lesions. Neck: trachea midline, no mass, symmetric, no thyromegaly or nodules, no adenopathy Respiratory: lungs CTA, respirations non labored. Cardiovascular: regular rate and rhythm, no murmur, no pedal edema or varicosities. Lymphatic: no cervical adenopathy, no supraclavicular adenopathy Musculoskeletal: normal gait, digits and nails without infection, nodes, cyanosis, clubbing. Skin: no rashes, no lesions, no ulcers, left parietal scalp with 4 cm round mass, soft, no overlying skin changes, no drainage or open areas. Psychiatric/Neuro: oriented to time, place, person, judgement normal, affect appropriate for age, insight intact, no focal deficits. Tests: review of old records completed, Discussed surgical options, risks, and possible complications with patient. Assessment/Plan 1. Mass of head (R22.0: Localized swelling, mass and lump, head) plan excisional biopsy under local anesthesia at [facility], informed consent obtained. Follow-up No qualifying data available Problem List/Past Medical History Ongoing BMI 26.0-26.9,adult BPH with urinary obstruction Chest pain Elevated liver enzymes Eustachian tube dysfunction Fibromyalgia Headache disorder HTN (hypertension) Left cervical radiculopathy Left groin mass Lung disease due to allergies Mass of head Memory impairment Mood disorder Nodule of left lung Tinnitus Tobacco non-user Historical Type II diabetes mellitus Procedure/Surgical History Meniscal repair, Repair of ligament of knee joint, Repair of tendon of hand, Tonsillectomy. Medications aspirin 81 mg Chew Tab, 81 mg= 1 tab(s), Oral, Daily FLUoxetine 60 mg oral tablet, 60 mg= 1 tab(s), Oral, Daily, 1 refills fluticasone 0.05 mg/inh Nasal Olive, 2 spray(s), Nasal, Daily, 2 refills rizatriptan 10 mg Tab, 10 mg= 1 tab(s), Oral, Daily, PRN Ventolin HFA 90 mcg/inh Aerosol, 2 puff(s), Inhalation, QID, PRN, 6 refills Allergies Bee Stings (Edema) Social History Alcohol - Denies Alcohol Use, 08/01/2021 Substance Abuse - High Risk, 08/01/2021 Current, Marijuana, Household substance abuse concerns: Yes., 08/01/2021 Tobacco - Denies Tobacco Use, 08/01/2021 Never (less than 100 in lifetime) Tobacco Use:. Never Smokeless Tobacco Use:., 06/07/2022 Family History Acute myocardial infarction: Father. Hypertension: Father. Immunizations Vaccine Date Status Comments influenza virus vaccine, inactivated - Not Given Patient Refuses [facility] Comment on above: Result Comment: Elec tronically Signed By: ROSS MAGDALENO, Arely Ventura\Date and Time Signed: 06/07/22 14:40 EST 05-30-2022 Hospital Discharge instructions Patient Education 05/30/2022 09:49:49 Budget-Friendly Healthy Eating Budget-Friendly Healthy Eating There are many ways to save money at the grocery store and continue to eat healthy. You can be successful if you: Plan meals according to your budget. Make a grocery list and only purchase food according to your grocery list. Prepare food yourself. What are tips for following this plan? Reading food labels Compare food labels between brand name foods and the store brand. Often the nutritional value is the same, but the store brand is lower cost. Look for products that do not have added sugar, fat, or salt (sodium). These often cost the same but are healthier for you. Products may be labeled as: ?Sugar-free. ?Nonfat. ?Low-fat. ?Sodium-free. ?Low-sodium. Look for lean ground beef labeled as at least 92% lean and 8% fat. Shopping Buy only the items on your grocery list and go only to the areas of the store that have the items on your list. Use coupons only for foods and brands you normally buy. Avoid buying items you wouldn't normally buy simply because they are on sale. Check online and in newspapers for weekly deals. Buy healthy items from the bulk bins when available, such as herbs, spices, flour, pasta, nuts, and dried fruit. Buy fruits and vegetables that are in season. Prices are usually lower on in-season produce. Look at the unit herman on the herman tag. Use it to compare different brands and sizes to find out which item is the best deal. Choose healthy items that are often low-cost, such as carrots, potatoes, apples, bananas, and oranges. Dried or canned beans are a low-cost protein source. Buy in bulk and freeze extra food. Items you can buy in bulk include meats, fish, poultry, frozen fruits, and frozen vegetables. Avoid buying oglfj-ku-nii foods, such as pre-cut fruits and vegetables and pre-made salads. If possible, shop around to discover where you can find the best prices. Consider other retailers such as [employer] stores, larger wholesale stores, local fruit and vegetable [employer], and [employer] markets. Do not shop when you are hungry. If you shop while hungry, it may be hard to stick to your list and budget. Resist impulse buying. Use your grocery list as your official plan for the week. Buy a variety of vegetables and fruits by purchasing fresh, frozen, and canned items. Look at the top and bottom shelves for deals. Foods at eye level (eye level of an adult or child) are usually more expensive. Be efficient with your time when shopping. The more time you spend at the store, the more money you are likely to spend. To save money when choosing more expensive foods like meats and dairy: ?Choose cheaper cuts of meat, such as bone-in chicken thighs and drumsticks instead of skinless and boneless chicken. When you are ready to prepare the chicken, you can remove the skin yourself to make it healthier. ?Choose lean meats like chicken or turkey instead of beef. ?Choose canned seafood, such as tuna, salmon, or sardines. ?Buy eggs as a low-cost source of protein. ?Buy dried beans and peas, such as lentils, split peas, or kidney beans instead of meats. Dried beans and peas are a good alternative source of protein. ?Buy the larger tubs of yogurt instead of individual-sized containers. Choose water instead of sodas and other sweetened beverages. Avoid buying chips, cookies, and other junk food. These items are usually expensive and not healthy. Cooking Make extra food and freeze the extras in meal-sized containers or in individual portions for fast meals and snacks. Pre-cook on days when you have extra time to prepare meals in advance. You can keep these meals in the fridge or freezer and reheat for a quick meal. When you come home from the grocery store, wash, peel, and cut fruits and vegetables so they are ready to use and eat. This will help reduce food waste. Meal planning Do not eat out or get fast food. Prepare food at home. Make a grocery list and make sure to bring it with you to the store. If you have a smart phone, you could use your phone to create your shopping list. Plan meals and snacks according to a grocery list and budget you create. Use leftovers in your meal plan for the week. Look for recipes where you can cook once and make enough food for two meals. Include budget-friendly meals like stews, casseroles, and stir-taylor dishes. Try some meatless meals or try no cook meals like salads. Make sure that half your plate is filled with fruits or vegetables. Choose from fresh, frozen, or canned fruits and vegetables. If eating canned, remember to rinse them before eating. This will remove any excess salt added for packaging. Summary Eating healthy on a budget is possible if you plan your meals according to your budget, purchase according to your budget and grocery list, and prepare food yourself. Tips for buying more food on a limited budget include buying generic brands, using coupons only for foods you normally buy, and buying healthy items from the bulk bins when available. Tips for buying cheaper food to replace expensive food include choosing cheaper, lean cuts of meat, and buying dried beans and peas. This information is not intended to replace advice given to you by your health care provider. Make sure you discuss any questions you have with your health care provider. Document Released: 12/18/2014 Document Revised: 04/17/2018 Document Reviewed: 04/17/2018 [employer] Patient Education 2020 [employer]. 05/30/2022 09:49:48 BMI for Adults BMI for Adults Body mass index (BMI) is a number that is calculated from a person's weight and height. BMI may help to estimate how much of a person's weight is composed of fat. BMI can help identify those who may be at higher risk for certain medical problems. How is BMI used with adults? BMI is used as a screening tool to identify possible weight problems. It is used to check whether a person is obese, overweight, healthy weight, or underweight. How is BMI calculated? BMI measures your weight and compares it to your height. This can be done either in [place] or metric measurements. Note that charts are available to help you find your BMI quickly and easily without having to do these calculations yourself. To calculate your BMI in [place] measurements, your health care provider will: 1.Measure your weight in pounds (lb). 2.Multiply the number of pounds by 703. For example, for a person who weighs 180 lb, multiply that number by 703, which equals 126,540. 3.Measure your height in inches (in). Then multiply that number by itself to get a measurement called inches squared. For example, for a person who is 70 in tall, the inches squared measurement is 70 in x 70 in, which equals 4900 inches squared. 4.Divide the total from Step 2 (number of lb x 703) by the total from Step 3 (inches squared): 126,540 4900 = 25.8. This is your BMI. To calculate your BMI in metric measurements, your health care provider will: 1.Measure your weight in kilograms (kg). 2.Measure your height in meters (m). Then multiply that number by itself to get a measurement called meters squared. For example, for a person who is 1.75 m tall, the meters squared measurement is 1.75 m x 1.75 m, which is equal to 3.1 meters squared. 3.Divide the number of kilograms (your weight) by the meters squared number. In this example: 70 3.1 = 22.6. This is your BMI. How is BMI interpreted? To interpret your results, your health care provider will use BMI charts to identify whether you are underweight, normal weight, overweight, or obese. The following guidelines will be used: Underweight: BMI less than 18.5. Normal weight: BMI between 18.5 and 24.9. Overweight: BMI between 25 and 29.9. Obese: BMI of 30 and above. Please note: Weight includes both fat and muscle, so someone with a muscular build, such as an athlete, may have a BMI that is higher than 24.9. In cases like these, BMI is not an accurate measure of body fat. To determine if excess body fat is the cause of a BMI of 25 or higher, further assessments may need to be done by a health care provider. BMI is usually interpreted in the same way for men and women. Why is BMI a useful tool? BMI is useful in two ways: Identifying a weight problem that may be related to a medical condition, or that may increase the risk for medical problems. Promoting lifestyle and diet changes in order to reach a healthy weight. Summary Body mass index (BMI) is a number that is calculated from a person's weight and height. BMI may help to estimate how much of a person's weight is composed of fat. BMI can help identify those who may be at higher risk for certain medical problems. BMI can be measured using Monegasque measurements or metric measurements. To interpret your results, your health care provider will use BMI charts to identify whether you are underweight, normal weight, overweight, or obese. This information is not intended to replace advice given to you by your health care provider. Make sure you discuss any questions you have with your health care provider. Document Released: 12/26/2004 Document Revised: 03/29/2018 Document Reviewed: 02/27/2018 [employer] Patient Education 2020 MC2. 05/30/2022 09:49:45 Nonspecific Chest Pain, Adult Nonspecific Chest Pain, Adult Chest pain can be caused by many different conditions. It can be caused by a condition that is life-threatening and requires treatment right away. It can also be caused by something that is not life-threatening. If you have chest pain, it can be hard to know the difference, so it is important to get help right away to make sure that you do not have a serious condition. Some life-threatening causes of chest pain include: Heart attack. A tear in the body's main blood vessel (aortic dissection). Inflammation around your heart (pericarditis). A problem in the lungs, such as a blood clot (pulmonary embolism) or a collapsed lung (pneumothorax). Some non life-threatening causes of chest pain include: Heartburn. Anxiety or stress. Damage to the bones, muscles, and cartilage that make up your chest wall. Pneumonia or bronchitis. Shingles infection (varicella-zoster virus). Chest pain can feel like: Pain or discomfort on the surface of your chest or deep in your chest. Crushing, pressure, aching, or squeezing pain. Burning or tingling. Dull or sharp pain that is worse when you move, cough, or take a deep breath. Pain or discomfort that is also felt in your back, neck, jaw, shoulder, or arm, or pain that spreads to any of these areas. Your chest pain may come and go. It may also be constant. Your health care provider will do lab tests and other studies to find the cause of your pain. Treatment will depend on the cause of your chest pain. Follow these instructions at home: Medicines Take cmrn-hyu-zzbqvqc and prescription medicines only as told by your health care provider. If you were prescribed an antibiotic, take it as told by your health care provider. Do not stop taking the antibiotic even if you start to feel better. Lifestyle Rest as directed by your health care provider. Do not use any products that contain nicotine or tobacco, such as cigarettes and e-cigarettes. If you need help quitting, ask your health care provider. Do not drink alcohol. Make healthy lifestyle choices as recommended. These may include: ?Getting regular exercise. Ask your health care provider to suggest some activities that are safe for you. ?Eating a heart-healthy diet. This includes plenty of fresh fruits and vegetables, whole grains, low-fat (lean) protein, and low-fat dairy products. A dietitian can help you find healthy eating options. ?Maintaining a healthy weight. ?Managing any other health conditions you have, such as high blood pressure (hypertension) or diabetes. ?Reducing stress, such as with yoga or relaxation techniques. General instructions Pay attention to any changes in your symptoms. Tell your health care provider about them or any new symptoms. Avoid any activities that cause chest pain. Keep all follow-up visits as told by your health care provider. This is important. This includes visits for any further testing if your chest pain does not go away. Contact a health care provider if: Your chest pain does not go away. You feel depressed. You have a fever. Get help right away if: Your chest pain gets worse. You have a cough that gets worse, or you cough up blood. You have severe pain in your abdomen. You faint. You have sudden, unexplained chest discomfort. You have sudden, unexplained discomfort in your arms, back, neck, or jaw. You have shortness of breath at any time. You suddenly start to sweat, or your skin gets clammy. You feel nausea or you vomit. You suddenly feel lightheaded or dizzy. You have severe weakness, or unexplained weakness or fatigue. Your heart begins to beat quickly, or it feels like it is skipping beats. These symptoms may represent a serious problem that is an emergency. Do not wait to see if the symptoms will go away. Get medical help right away. Call your local emergency services (911 in the [place] Do not drive yourself to the hospital. Summary Chest pain can be caused by a condition that is serious and requires urgent treatment. It may also be caused by something that is not life-threatening. If you have chest pain, it is very important to see your health care provider. Your health care provider may do lab tests and other studies to find the cause of your pain. Follow your health care provider's instructions on taking medicines, making lifestyle changes, and getting emergency treatment if symptoms become worse. Keep all follow-up visits as told by your health care provider. This includes visits for any further testing if your chest pain does not go away. This information is not intended to replace advice given to you by your health care provider. Make sure you discuss any questions you have with your health care provider. Document Released: 01/24/2006 Document Revised: 10/17/2018 Document Reviewed: 10/17/2018 [employer] Patient Education 2020 [employer] 05/30/2022 09:49:38 Eustachian Tube Dysfunction Eustachian Tube Dysfunction Eustachian tube dysfunction refers to a condition in which a blockage develops in the narrow passage that connects the middle ear to the back of the nose (eustachian tube). The eustachian tube regulates air pressure in the middle ear by letting air move between the ear and nose. It also helps to drain fluid from the middle ear space. Eustachian tube dysfunction can affect one or both ears. When the eustachian tube does not function properly, air pressure, fluid, or both can build up in the middle ear. What are the causes? This condition occurs when the eustachian tube becomes blocked or cannot open normally. Common causes of this condition include: Ear infections. Colds and other infections that affect the nose, mouth, and throat (upper respiratory tract). Allergies. Irritation from cigarette smoke. Irritation from stomach acid coming up into the esophagus (gastroesophageal reflux). The esophagus is the tube that carries food from the mouth to the stomach. Sudden changes in air pressure, such as from descending in an airplane or scuba diving. Abnormal growths in the nose or throat, such as: ?Growths that line the nose (nasal polyps). ?Abnormal growth of cells (tumors). ?Enlarged tissue at the back of the throat (adenoids). What increases the risk? You are more likely to develop this condition if: You smoke. You are overweight. You are a child who has: ?Certain defects of the mouth, such as cleft palate. ?Large tonsils or adenoids. What are the signs or symptoms? Common symptoms of this condition include: A feeling of fullness in the ear. Ear pain. Clicking or popping noises in the ear. Ringing in the ear. Hearing loss. Loss of balance. Dizziness. Symptoms may get worse when the air pressure around you changes, such as when you travel to an area of high elevation, fly on an airplane, or go scuba diving. How is this diagnosed? This condition may be diagnosed based on: Your symptoms. A physical exam of your ears, nose, and throat. Tests, such as those that measure: ?The movement of your eardrum (tympanogram). ?Your hearing (audiometry). How is this treated? Treatment depends on the cause and severity of your condition. In mild cases, you may relieve your symptoms by moving air into your ears. This is called popping the ears. In more severe cases, or if you have symptoms of fluid in your ears, treatment may include: ?Medicines to relieve congestion (decongestants). ?Medicines that treat allergies (antihistamines). ?Nasal sprays or ear drops that contain medicines that reduce swelling (steroids). ?A procedure to drain the fluid in your eardrum (myringotomy). In this procedure, a small tube is placed in the eardrum to: ?Drain the fluid. ?Restore the air in the middle ear space. ?A procedure to insert a balloon device through the nose to inflate the opening of the eustachian tube (balloon dilation). Follow these instructions at home: Lifestyle Do not do any of the following until your health care provider approves: ?Travel to high altitudes. ?Fly in airplanes. ?Work in a pressurized cabin or room. ?Scuba dive. Do not use any products that contain nicotine or tobacco, such as cigarettes and e-cigarettes. If you need help quitting, ask your health care provider. Keep your ears dry. Wear fitted earplugs during showering and bathing. Dry your ears completely after. General instructions Take lidz-voj-dlnibmt and prescription medicines only as told by your health care provider. Use techniques to help pop your ears as recommended by your health care provider. These may include: ?Chewing gum. ?Yawning. ?Frequent, forceful swallowing. ?Closing your mouth, holding your nose closed, and gently blowing as if you are trying to blow air out of your nose. Keep all follow-up visits as told by your health care provider. This is important. Contact a health care provider if: Your symptoms do not go away after treatment. Your symptoms come back after treatment. You are unable to pop your ears. You have: ?A fever. ?Pain in your ear. ?Pain in your head or neck. ?Fluid draining from your ear. Your hearing suddenly changes. You become very dizzy. You lose your balance. Summary Eustachian tube dysfunction refers to a condition in which a blockage develops in the eustachian tube. It can be caused by ear infections, allergies, inhaled irritants, or abnormal growths in the nose or throat. Symptoms include ear pain, hearing loss, or ringing in the ears. Mild cases are treated with maneuvers to unblock the ears, such as yawning or ear popping. Severe cases are treated with medicines. Surgery may also be done (rare). This information is not intended to replace advice given to you by your health care provider. Make sure you discuss any questions you have with your health care provider. Document Released: 05/12/2016 Document Revised: 08/06/2018 Document Reviewed: 08/06/2018 [employer] Patient Education 2020 [employer] 05/30/2022 09:49:36 Tinnitus Tinnitus Tinnitus refers to hearing a sound when there is no actual source for that sound. This is often described as ringing in the ears. However, people with this condition may hear a variety of noises, in one ear or in both ears. The sounds of tinnitus can be soft, loud, or somewhere in between. Tinnitus can last for a few seconds or can be constant for days. It may go away without treatment and come back at various times. When tinnitus is constant or happens often, it can lead to other problems, such as trouble sleeping and trouble concentrating. Almost everyone experiences tinnitus at some point. Tinnitus that is long-lasting (chronic) or comes back often (recurs) may require medical attention. What are the causes? The cause of tinnitus is often not known. In some cases, it can result from other problems or conditions, including: Exposure to loud noises from machinery, music, or other sources. Hearing loss. Ear or sinus infections. Earwax buildup. An object (foreign body) stuck in the ear. Taking certain medicines. Drinking alcohol or caffeine. High blood pressure. Heart diseases. Anemia. Allergies. Meniere's disease. Thyroid problems. Tumors. A weak, bulging blood vessel (aneurysm) near the ear. Depression or other mood disorders. What are the signs or symptoms? The main symptom of tinnitus is hearing a sound when there is no source for that sound. It may sound like: Buzzing. Roaring. Ringing. Blowing air, like the sound heard when you listen to a seashell. Hissing. Whistling. Sizzling. Humming. Running water. A musical note. Tapping. Symptoms may affect only one ear (unilateral) or both ears (bilateral). How is this diagnosed? Tinnitus is diagnosed based on your symptoms, your medical history, and a physical exam. Your health care provider may do a thorough hearing test (audiologic exam) if your tinnitus: Is unilateral. Causes hearing difficulties. Lasts 6 months or longer. You may work with a health care provider who specializes in hearing disorders (manager recovery). You may be asked questions about your symptoms and how they affect your daily life. You may have other tests done, such as: CT scan. MRI. An imaging test of how blood flows through your blood vessels (angiogram). How is this treated? Treating an underlying medical condition can sometimes make tinnitus go away. If your tinnitus continues, other treatments may include: Medicines, such as antidepressants or sleeping aids. Sound generators to mask the tinnitus. These include: ?Tabletop sound machines that play relaxing sounds to help you fall asleep. ?Wearable devices that fit in your ear and play sounds or music. ?Acoustic neural stimulation. This involves using headphones to listen to music that contains an auditory signal. Over time, listening to this signal may change some pathways in your brain and make you less sensitive to tinnitus. This treatment is used for very severe cases when no other treatment is working. Therapy and counseling to help you manage the stress of living with tinnitus. Using hearing aids or cochlear implants if your tinnitus is related to hearing loss. Hearing aids are worn in the outer ear. Cochlear implants are surgically placed in the inner ear. Follow these instructions at home: Managing symptoms When possible, avoid being in loud places and being exposed to loud sounds. Wear hearing protection, such as earplugs, when you are exposed to loud noises. Use a white noise machine, a humidifier, or other devices to mask the sound of tinnitus. Practice techniques for reducing stress, such as meditation, yoga, or deep breathing. Work with your health care provider if you need help with managing stress. Sleep with your head slightly raised. This may reduce the impact of tinnitus. General instructions Do not use stimulants, such as nicotine, alcohol, or caffeine. Talk with your health care provider about other stimulants to avoid. Stimulants are substances that can make you feel alert and attentive by increasing certain activities in the body (such as heart rate and blood pressure). These substances may make tinnitus worse. Take lnra-mgh-cpbjpcb and prescription medicines only as told by your health care provider. Try to get plenty of sleep each night. Keep all follow-up visits as told by your health care provider. This is important. Contact a health care provider if: Your tinnitus continues for 3 weeks or longer without stopping. Your symptoms get worse or do not get better with home care. You develop tinnitus after a head injury. You have tinnitus along with any of the following: ?Dizziness. ?Loss of balance. ?Nausea and vomiting. Summary Tinnitus refers to hearing a sound when there is no actual source for that sound. This is often described as ringing in the ears. Symptoms may affect only one ear (unilateral) or both ears (bilateral). Use a white noise machine, a humidifier, or other devices to mask the sound of tinnitus. Do not use stimulants, such as nicotine, alcohol, or caffeine. Talk with your health care provider about other stimulants to avoid. These substances may make tinnitus worse. This information is not intended to replace advice given to you by your health care provider. Make sure you discuss any questions you have with your health care provider. Document Released: 04/16/2006 Document Revised: 03/29/2018 Document Reviewed: 01/24/2018 [employer] Patient Education 2020 [employer]. Follow Up Care 02/23/2022 10:18:16 With:MIK REDDY CNP Address: [facility] [place] [address] When: Unknown [facility] [place] 02-23-2022 Hospital Discharge instructions Patient Education 02/23/2022 10:21:24 Preventive Care 65 Years and Older, Male Preventive Care 65 Years and Older, Male Preventive care refers to lifestyle choices and visits with your health care provider that can promote health and wellness. This includes: A yearly physical exam. This is also called an annual well check. Regular dental and eye exams. Immunizations. Screening for certain conditions. Healthy lifestyle choices, such as diet and exercise. What can I expect for my preventive care visit? Physical exam Your health care provider will check: Height and weight. These may be used to calculate body mass index (BMI), which is a measurement that tells if you are at a healthy weight. Heart rate and blood pressure. Your skin for abnormal spots. Counseling Your health care provider may ask you questions about: Alcohol, tobacco, and drug use. Emotional well-being. Home and relationship well-being. Sexual activity. Eating habits. History of falls. Memory and ability to understand (cognition). Work and work environment. What immunizations do I need? Influenza (flu) vaccine This is recommended every year. Tetanus, diphtheria, and pertussis (Tdap) vaccine You may need a Td booster every 10 years. Varicella (chickenpox) vaccine You may need this vaccine if you have not already been vaccinated. Zoster (shingles) vaccine You may need this after age 60. Pneumococcal conjugate (PCV13) vaccine One dose is recommended after age 65. Pneumococcal polysaccharide (PPSV23) vaccine One dose is recommended after age 65. Measles, mumps, and rubella (MMR) vaccine You may need at least one dose of MMR if you were born in 1958 or later. You may also need a second dose. Meningococcal conjugate (MenACWY) vaccine You may need this if you have certain conditions. Hepatitis A vaccine You may need this if you have certain conditions or if you travel or work in places where you may be exposed to hepatitis A. Hepatitis B vaccine You may need this if you have certain conditions or if you travel or work in places where you may be exposed to hepatitis B. Haemophilus influenzae type b (Hib) vaccine You may need this if you have certain conditions. You may receive vaccines as individual doses or as more than one vaccine together in one shot (combination vaccines). Talk with your health care provider about the risks and benefits of combination vaccines. What tests do I need? Blood tests Lipid and cholesterol levels. These may be checked every 5 years, or more frequently depending on your overall health. Hepatitis C test. Hepatitis B test. Screening Lung cancer screening. You may have this screening every year starting at age 55 if you have a [id number] history of smoking and currently smoke or have quit within the past 15 years. Colorectal cancer screening. All adults should have this screening starting at age 50 and continuing until age 75. Your health care provider may recommend screening at age 45 if you are at increased risk. You will have tests every 1 10 years, depending on your results and the type of screening test. Prostate cancer screening. Recommendations will vary depending on your family history and other risks. Diabetes screening. This is done by checking your blood sugar (glucose) after you have not eaten for a while (fasting). You may have this done every 1 3 years. Abdominal aortic aneurysm (AAA) screening. You may need this if you are a current or former smoker. Sexually transmitted disease (STD) testing. Follow these instructions at home: Eating and drinking Eat a diet that includes fresh fruits and vegetables, whole grains, lean protein, and low-fat dairy products. Limit your intake of foods with high amounts of sugar, saturated fats, and salt. Take vitamin and mineral supplements as recommended by your health care provider. Do not drink alcohol if your health care provider tells you not to drink. If you drink alcohol: ?Limit how much you have to 0 2 drinks a day. ?Be aware of how much alcohol is in your drink. In the [place] one drink equals one 12 oz bottle of beer (355 mL), one 5 oz glass of wine (148 mL), or one 1 oz glass of hard liquor (44 mL). Lifestyle Take daily care of your teeth and gums. Stay active. Exercise for at least 30 minutes on 5 or more days each week. Do not use any products that contain nicotine or tobacco, such as cigarettes, e-cigarettes, and chewing tobacco. If you need help quitting, ask your health care provider. If you are sexually active, practice safe sex. Use a condom or other form of protection to prevent STIs (sexually transmitted infections). Talk with your health care provider about taking a low-dose aspirin or statin. What's next? Visit your health care provider once a year for a well check visit. Ask your health care provider how often you should have your eyes and teeth checked. Stay up to date on all vaccines. This information is not intended to replace advice given to you by your health care provider. Make sure you discuss any questions you have with your health care provider. Document Released: 05/12/2016 Document Revised: 04/10/2019 Document Reviewed: 04/10/2019 [employer] Patient Education 2020 [employer] 02/23/2022 10:21:22 Preventing Diabetes Mellitus Complications Preventing Diabetes Mellitus Complications You can take action to prevent or slow down problems that are caused by diabetes (diabetes mellitus). Following your diabetes plan and taking care of yourself can reduce your risk of serious or life-threatening complications. What actions can I take to prevent diabetes complications? Manage your diabetes Follow instructions from your health care providers about managing your diabetes. Your diabetes may be managed by a team of health care providers who can teach you how to care for yourself and can answer questions that you have. Educate yourself about your condition so you can make healthy choices about eating and physical activity. Check your blood sugar (glucose) levels as often as directed. Your health care provider will help you decide how often to check your blood glucose level depending on your treatment goals and how well you are meeting them. Ask your health care provider if you should take low-dose aspirin daily and what dose is recommended for you. Taking low-dose aspirin daily is recommended to help prevent cardiovascular disease. Do not use nicotine or tobacco Do not use any products that contain nicotine or tobacco, such as cigarettes and e-cigarettes. If you need help quitting, ask your health care provider. Nicotine raises your risk for diabetes problems. If you quit using nicotine: You will lower your risk for heart attack, stroke, nerve disease, and kidney disease. Your cholesterol and blood pressure may improve. Your blood circulation will improve. Keep your blood pressure under control Your personal target blood pressure is determined based on: Your age. Your medicines. How long you have had diabetes. Any other medical conditions you have. To control your blood pressure: Follow instructions from your health care provider about meal planning, exercise, and medicines. Make sure your health care provider checks your blood pressure at every medical visit. Monitor your blood pressure at home as told by your health care provider. Keep your cholesterol under control To control your cholesterol: Follow instructions from your health care provider about meal planning, exercise, and medicines. Have your cholesterol checked at least once a year. You may be prescribed medicine to lower cholesterol (statin). If you are not taking a statin, ask your health care provider if you should be. Controlling your cholesterol may: Help prevent heart disease and stroke. These are the most common health problems for people with diabetes. Improve your blood flow. Schedule and keep yearly physical exams and eye exams Your health care provider will tell you how often you need medical visits depending on your diabetes management plan. Keep all follow-up visits as directed. This is important so possible problems can be identified early and complications can be avoided or treated. Every visit with your health care provider should include measuring your: ?Weight. ?Blood pressure. ?Blood glucose control. Your A1c (hemoglobin A1c) level should be checked: ?At least 2 times a year, if you are meeting your treatment goals. ?4 times a year, if you are not meeting treatment goals or if your treatment goals have changed. Your blood lipids (lipid profile) should be checked yearly. You should also be checked yearly for protein in your urine (urine microalbumin). If you have type 1 diabetes, get an eye exam 3 5 years after you are diagnosed, and then once a year after your first exam. If you have type 2 diabetes, get an eye exam as soon as you are diagnosed, and then once a year after your first exam. Keep your vaccines current It is recommended that you receive: A flu (influenza) vaccine every year. A pneumonia (pneumococcal) vaccine and a hepatitis B vaccine. If you are age 65 or older, you may get the pneumonia vaccine as a series of two separate shots. Ask your health care provider which other vaccines may be recommended. Take care of your feet Diabetes may cause you to have poor blood circulation to your legs and feet. Because of this, taking care of your feet is very important. Diabetes can cause: The skin on the feet to get thinner, break more easily, and heal more slowly. Nerve damage in your legs and feet, which results in decreased feeling. You may not notice minor injuries that could lead to serious problems. To avoid foot problems: Check your skin and feet every day for cuts, bruises, redness, blisters, or sores. Schedule a foot exam with your health care provider once every year. This exam includes: ?Inspecting of the structure and skin of your feet. ?Checking the pulses and sensation in your feet. Make sure that your health care provider performs a visual foot exam at every medical visit. Take care of your teeth People with poorly controlled diabetes are more likely to have gum (periodontal) disease. Diabetes can make periodontal diseases harder to control. If not treated, periodontal diseases can lead to tooth loss. To prevent this: [place] your teeth twice a day. Floss at least once a day. Visit your dentist 2 times a year. Drink responsibly Limit alcohol intake to no more than 1 drink a day for non women and 2 drinks a day for men. One drink equals 12 oz of beer, 5 oz of wine, or 1 oz of hard liquor. It is important to eat food when you drink alcohol to avoid low blood glucose (hypoglycemia). Avoid alcohol if you: Have a history of alcohol abuse or dependence. Are . Have liver disease, pancreatitis, advanced neuropathy, or severe hypertriglyceridemia. Lessen stress Living with diabetes can be stressful. When you are experiencing stress, your blood glucose may be affected in two ways: Stress hormones may cause your blood glucose to rise. You may be distracted from taking good care of yourself. Be aware of your stress level and make changes to help you manage challenging situations. To lower your stress levels: Consider joining a support group. Do planned relaxation or meditation. Do a hobby that you enjoy. Maintain healthy relationships. Exercise regularly. Work with your health care provider or a mental health professional. Summary You can take action to prevent or slow down problems that are caused by diabetes (diabetes mellitus). Following your diabetes plan and taking care of yourself can reduce your risk of serious or life-threatening complications. Follow instructions from your health care providers about managing your diabetes. Your diabetes may be managed by a team of health care providers who can teach you how to care for yourself and can answer questions that you have. Your health care provider will tell you how often you need medical visits depending on your diabetes management plan. Keep all follow-up visits as directed. This is important so possible problems can be identified early and complications can be avoided or treated. This information is not intended to replace advice given to you by your health care provider. Make sure you discuss any questions you have with your health care provider. Document Released: 01/02/2012 Document Revised: 07/15/2018 Document Reviewed: 01/13/2017 [employer] Patient Education 2020 [employer]. 02/23/2022 10:21:19 Healthy Eating Healthy Eating Following a healthy eating pattern may help you to achieve and maintain a healthy body weight, reduce the risk of chronic disease, and live a long and productive life. It is important to follow a healthy eating pattern at an appropriate calorie level for your body. Your nutritional needs should be met primarily through food by choosing a variety of nutrient-rich foods. What are tips for following this plan? Reading food labels Read labels and choose the following: ?Reduced or low sodium. ?Juices with 100% fruit juice. ?Foods with low saturated fats and high polyunsaturated and monounsaturated fats. ?Foods with whole grains, such as whole wheat, cracked wheat, brown rice, and wild rice. ?Whole grains that are fortified with folic acid. This is recommended for women who are or who want to become . Read labels and avoid the following: ?Foods with a lot of added sugars. These include foods that contain brown sugar, corn sweetener, corn syrup, dextrose, fructose, glucose, high-fructose corn syrup, honey, invert sugar, lactose, malt syrup, maltose, molasses, raw sugar, sucrose, trehalose, or turbinado sugar. ?Do not eat more than the following amounts of added sugar per day: 6 teaspoons (25 g) for women. 9 teaspoons (38 g) for men. ?Foods that contain processed or refined starches and grains. ?Refined grain products, such as white flour, degermed cornmeal, white bread, and white rice. Shopping Choose nutrient-rich snacks, such as vegetables, whole fruits, and nuts. Avoid high-calorie and high-sugar snacks, such as potato chips, fruit snacks, and candy. Use oil-based dressings and spreads on foods instead of solid fats such as butter, stick margarine, or cream cheese. Limit pre-made sauces, mixes, and instant products such as flavored rice, instant noodles, and ready-made pasta. Try more plant-protein sources, such as tofu, tempeh, black beans, edamame, lentils, nuts, and seeds. Explore eating plans such as the Mediterranean diet or vegetarian diet. Cooking Use oil to saut or stir-taylor foods instead of solid fats such as butter, stick margarine, or lard. Try baking, boiling, grilling, or broiling instead of frying. Remove the fatty part of meats before cooking. Steam vegetables in water or broth. Meal planning At meals, imagine dividing your plate into fourths: ?One-half of your plate is fruits and vegetables. ?One-fourth of your plate is whole grains. ?One-fourth of your plate is protein, especially lean meats, poultry, eggs, tofu, beans, or nuts. Include low-fat dairy as part of your daily diet. Lifestyle Choose healthy options in all settings, including home, work, school, restaurants, or stores. Prepare your food safely: ?Wash your hands after handling raw meats. ?Keep food preparation surfaces clean by regularly washing with hot, soapy water. ?Keep raw meats separate from [id number] foods, such as fruits and vegetables. ?grease man, meat, poultry, and eggs to the recommended internal temperature. ?Store foods at safe temperatures. In general: ?Keep cold foods at 40 F (4.4 C) or below. ?Keep hot foods at 140 F (60 C) or above. ?Keep your freezer at 0 F (-17.8 C) or below. ?Foods are no longer safe to eat when they have been between the temperatures of 40 140 F (4.4 60 C) for more than 2 hours. What foods should I eat? Fruits Aim to eat 2 cup-equivalents of fresh, canned (in natural juice), or frozen fruits each day. Examples of 1 cup-equivalent of fruit include 1 small apple, 8 large strawberries, 1 cup canned fruit, cup dried fruit, or 1 cup 100% juice. Vegetables Aim to eat 2 3 cup-equivalents of fresh and frozen vegetables each day, including different varieties and colors. Examples of 1 cup-equivalent of vegetables include 2 medium carrots, 2 cups raw, leafy greens, 1 cup chopped vegetable (raw or cooked), or 1 medium baked potato. Grains Aim to eat 6 ounce-equivalents of whole grains each day. Examples of 1 ounce-equivalent of grains include 1 slice of bread, 1 cup lmnyc-ho-bxa cereal, 3 cups popcorn, or cup cooked rice, pasta, or cereal. Meats and other proteins Aim to eat 5 6 ounce-equivalents of protein each day. Examples of 1 ounce-equivalent of protein include 1 egg, 1/2 cup nuts or seeds, or 1 tablespoon (16 g) peanut butter. A cut of meat or fish that is the size of a deck of cards is about 3 4 ounce-equivalents. Of the protein you eat each week, try to have at least 8 ounces come from seafood. This includes salmon, trout, tenorio, and anchovies. Dairy Aim to eat 3 cup-equivalents of fat-free or low-fat dairy each day. Examples of 1 cup-equivalent of dairy include 1 cup (240 mL) milk, 8 ounces (250 g) yogurt, 1 ounces (44 g) natural cheese, or 1 cup (240 mL) fortified soy milk. Fats and oils Aim for about 5 teaspoons (21 g) per day. Choose monounsaturated fats, such as canola and olive oils, avocados, peanut butter, and most nuts, or polyunsaturated fats, such as sunflower, corn, and soybean oils, walnuts, pine nuts, sesame seeds, sunflower seeds, and flaxseed. Beverages Aim for six 8-oz glasses of water per day. Limit coffee to three to five 8-oz cups per day. Limit caffeinated beverages that have added calories, such as soda and energy drinks. Limit alcohol intake to no more than 1 drink a day for non women and 2 drinks a day for men. One drink equals 12 oz of beer (355 mL), 5 oz of wine (148 mL), or 1 oz of hard liquor (44 mL). Seasoning and other foods Avoid adding excess amounts of salt to your foods. Try flavoring foods with herbs and spices instead of salt. Avoid adding sugar to foods. Try using oil-based dressings, sauces, and spreads instead of solid fats. This information is based on general [place] nutrition guidelines. For more information, visit choosemyplate.gov. Exact amounts may vary based on your nutrition needs. Summary A healthy eating plan may help you to maintain a healthy weight, reduce the risk of chronic diseases, and stay active throughout your life. Plan your meals. Make sure you eat the right portions of a variety of nutrient-rich foods. Try baking, boiling, grilling, or broiling instead of frying. Choose healthy options in all settings, including home, work, school, restaurants, or stores. This information is not intended to replace advice given to you by your health care provider. Make sure you discuss any questions you have with your health care provider. Document Released: 07/29/2018 Document Revised: 07/29/2018 Document Reviewed: 07/29/2018 [employer] Patient Education 2020 [employer] 02/23/2022 10:21:17 Diabetes Mellitus and Nutrition, Adult Diabetes Mellitus and Nutrition, Adult When you have diabetes (diabetes mellitus), it is very important to have healthy eating habits because your blood sugar (glucose) levels are greatly affected by what you eat and drink. Eating healthy foods in the appropriate amounts, at about the same times every day, can help you: Control your blood glucose. Lower your risk of heart disease. Improve your blood pressure. Reach or maintain a healthy weight. Every person with diabetes is different, and each person has different needs for a meal plan. Your health care provider may recommend that you work with a diet and claims support specialist (dietitian) to make a meal plan that is best for you. Your meal plan may vary depending on factors such as: The calories you need. The medicines you take. Your weight. Your blood glucose, blood pressure, and cholesterol levels. Your activity level. Other health conditions you have, such as heart or kidney disease. How do carbohydrates affect me? Carbohydrates, also called carbs, affect your blood glucose level more than any other type of food. Eating carbs naturally raises the amount of glucose in your blood. Carb counting is a method for keeping track of how many carbs you eat. Counting carbs is important to keep your blood glucose at a healthy level, especially if you use insulin or take certain oral diabetes medicines. It is important to know how many carbs you can safely have in each meal. This is different for every person. Your dietitian can help you calculate how many carbs you should have at each meal and for each snack. Foods that contain carbs include: Bread, cereal, rice, pasta, and crackers. Potatoes and corn. Peas, beans, and lentils. Milk and yogurt. Fruit and juice. Desserts, such as cakes, cookies, ice cream, and candy. How does alcohol affect me? Alcohol can cause a sudden decrease in blood glucose (hypoglycemia), especially if you use insulin or take certain oral diabetes medicines. Hypoglycemia can be a life-threatening condition. Symptoms of hypoglycemia (sleepiness, dizziness, and confusion) are similar to symptoms of having too much alcohol. If your health care provider says that alcohol is safe for you, follow these guidelines: Limit alcohol intake to no more than 1 drink per day for non women and 2 drinks per day for men. One drink equals 12 oz of beer, 5 oz of wine, or 1 oz of hard liquor. Do not drink on an empty stomach. Keep yourself hydrated with water, diet soda, or unsweetened iced tea. Keep in mind that regular soda, juice, and other mixers may contain a lot of sugar and must be counted as carbs. What are tips for following this plan? Reading food labels Start by checking the serving size on the Nutrition Facts label of packaged foods and drinks. The amount of calories, carbs, fats, and other nutrients listed on the label is based on one serving of the item. Many items contain more than one serving per package. Check the total grams (g) of carbs in one serving. You can calculate the number of servings of carbs in one serving by dividing the total carbs by 15. For example, if a food has 30 g of total carbs, it would be equal to 2 servings of carbs. Check the number of grams (g) of saturated and trans fats in one serving. Choose foods that have low or no amount of these fats. Check the number of milligrams (mg) of salt (sodium) in one serving. Most people should limit total sodium intake to less than 2,300 mg per day. Always check the nutrition information of foods labeled as low-fat or nonfat . These foods may be higher in added sugar or refined carbs and should be avoided. Talk to your dietitian to identify your daily goals for nutrients listed on the label. Shopping Avoid buying canned, premade, or processed foods. These foods tend to be high in fat, sodium, and added sugar. Shop around the outside edge of the grocery store. This includes fresh fruits and vegetables, bulk grains, fresh meats, and fresh dairy. Cooking Use low-heat cooking methods, such as baking, instead of high-heat cooking methods like deep frying. Cook using healthy oils, such as olive, canola, or sunflower oil. Avoid cooking with butter, cream, or high-fat meats. Meal planning Eat meals and snacks regularly, preferably at the same times every day. Avoid going long periods of time without eating. Eat foods high in fiber, such as fresh fruits, vegetables, beans, and whole grains. Talk to your dietitian about how many servings of carbs you can eat at each meal. Eat 4 6 ounces (oz) of lean protein each day, such as lean meat, chicken, fish, eggs, or tofu. One oz of lean protein is equal to: ?1 oz of meat, chicken, or fish. ?1 egg. ? cup of tofu. Eat some foods each day that contain healthy fats, such as avocado, nuts, seeds, and fish. Lifestyle Check your blood glucose regularly. Exercise regularly as told by your health care provider. This may include: ?150 minutes of moderate-intensity or vigorous-intensity exercise each week. This could be brisk walking, biking, or water aerobics. ?Stretching and doing strength exercises, such as yoga or weightlifting, at least 2 times a week. Take medicines as told by your health care provider. Do not use any products that contain nicotine or tobacco, such as cigarettes and e-cigarettes. If you need help quitting, ask your health care provider. Work with a counselor or breastfeeding educator to identify strategies to manage stress and any emotional and social challenges. Questions to ask a health care provider Do I need to meet with a breastfeeding educator? Do I need to meet with a dietitian? What number can I call if I have questions? When are the best times to check my blood glucose? Where to find more information: [place] [employer] Association: diabetes.org Academy of Nutrition and Dietetics: www.eatright.org National [place] of Diabetes and Digestive and Kidney Diseases (NIH): www.niddk.nih.gov Summary A healthy meal plan will help you control your blood glucose and maintain a healthy lifestyle. Working with a diet and claims support specialist (dietitian) can help you make a meal plan that is best for you. Keep in mind that carbohydrates (carbs) and alcohol have immediate effects on your blood glucose levels. It is important to count carbs and to use alcohol carefully. This information is not intended to replace advice given to you by your health care provider. Make sure you discuss any questions you have with your health care provider. Document Released: 01/11/2006 Document Revised: 03/29/2018 Document Reviewed: 05/21/2017 [employer] Patient Education 2020 [employer]. 02/23/2022 10:21:16 DASH Eating Plan DASH Eating Plan DASH stands for Dietary Approaches to Stop Hypertension. The DASH eating plan is a healthy eating plan that has been shown to reduce high blood pressure (hypertension). It may also reduce your risk for type 2 diabetes, heart disease, and stroke. The DASH eating plan may also help with weight loss. What are tips for following this plan? General guidelines Avoid eating more than 2,300 mg (milligrams) of salt (sodium) a day. If you have hypertension, you may need to reduce your sodium intake to 1,500 mg a day. Limit alcohol intake to no more than 1 drink a day for non women and 2 drinks a day for men. One drink equals 12 oz of beer, 5 oz of wine, or 1 oz of hard liquor. Work with your health care provider to maintain a healthy body weight or to lose weight. Ask what an ideal weight is for you. Get at least 30 minutes of exercise that causes your heart to beat faster (aerobic exercise) most days of the week. Activities may include walking, swimming, or biking. Work with your health care provider or diet and claims support specialist (dietitian) to adjust your eating plan to your individual calorie needs. Reading food labels Check food labels for the amount of sodium per serving. Choose foods with less than 5 percent of the Daily Value of sodium. Generally, foods with less than 300 mg of sodium per serving fit into this eating plan. To find whole grains, look for the word whole as the first word in the ingredient list. Shopping Buy products labeled as low-sodium or no salt added. Buy fresh foods. Avoid canned foods and premade or frozen meals. Cooking Avoid adding salt when cooking. Use salt-free seasonings or herbs instead of table salt or sea salt. Check with your health care provider or pharmacist before using salt substitutes. Do not taylor foods. Cook foods using healthy methods such as baking, boiling, grilling, and broiling instead. Cook with heart-healthy oils, such as olive, canola, soybean, or sunflower oil. Meal planning Eat a balanced diet that includes: ?5 or more servings of fruits and vegetables each day. At each meal, try to fill half of your plate with fruits and vegetables. ?Up to 6 8 servings of whole grains each day. ?Less than 6 oz of lean meat, poultry, or fish each day. A 3-oz serving of meat is about the same size as a deck of cards. One egg equals 1 oz. ?2 servings of low-fat dairy each day. ?A serving of nuts, seeds, or beans 5 times each week. ?Heart-healthy fats. Healthy fats called [place]-3 fatty acids are found in foods such as flaxseeds and coldwater fish, like sardines, salmon, and mackerel. Limit how much you eat of the following: ?Canned or prepackaged foods. ?Food that is high in trans fat, such as fried foods. ?Food that is high in saturated fat, such as fatty meat. ?Sweets, desserts, sugary drinks, and other foods with added sugar. ?Full-fat dairy products. Do not salt foods before eating. Try to eat at least 2 vegetarian meals each week. Eat more home-cooked food and less restaurant, buffet, and fast food. When eating at a restaurant, ask that your food be prepared with less salt or no salt, if possible. What foods are recommended? The items listed may not be a complete list. Talk with your dietitian about what dietary choices are best for you. Grains Whole-grain or whole-wheat bread. Whole-grain or whole-wheat pasta. Brown rice. Oatmeal. Quinoa. Bulgur. Whole-grain and low-sodium cereals. Keely bread. Low-fat, low-sodium crackers. Whole-wheat flour tortillas. Vegetables Fresh or frozen vegetables (raw, steamed, roasted, or grilled). Low-sodium or reduced-sodium tomato and vegetable juice. Low-sodium or reduced-sodium tomato sauce and tomato paste. Low-sodium or reduced-sodium canned vegetables. Fruits All fresh, dried, or frozen fruit. Canned fruit in natural juice (without added sugar). Meat and other protein foods Skinless chicken or turkey. Ground chicken or turkey. Pork with fat trimmed off. Fish and seafood. Egg whites. Dried beans, peas, or lentils. Unsalted nuts, nut butters, and seeds. Unsalted canned beans. Lean cuts of beef with fat trimmed off. Low-sodium, lean deli meat. Dairy Low-fat (1%) or fat-free (skim) milk. Fat-free, low-fat, or reduced-fat cheeses. Nonfat, low-sodium ricotta or cottage cheese. Low-fat or nonfat yogurt. Low-fat, low-sodium cheese. Fats and oils Soft margarine without trans fats. Vegetable oil. Low-fat, reduced-fat, or light mayonnaise and salad dressings (reduced-sodium). Canola, safflower, olive, soybean, and sunflower oils. Avocado. Seasoning and other foods Herbs. Spices. Seasoning mixes without salt. Unsalted popcorn and pretzels. Fat-free sweets. What foods are not recommended? The items listed may not be a complete list. Talk with your dietitian about what dietary choices are best for you. Grains Baked goods made with fat, such as croissants, muffins, or some breads. Dry pasta or rice meal packs. Vegetables Creamed or fried vegetables. Vegetables in a cheese sauce. Regular canned vegetables (not low-sodium or reduced-sodium). Regular canned tomato sauce and paste (not low-sodium or reduced-sodium). Regular tomato and vegetable juice (not low-sodium or reduced-sodium). Pickles. Olives. Fruits Canned fruit in a light or heavy syrup. Fried fruit. Fruit in cream or butter sauce. Meat and other protein foods Fatty cuts of meat. Ribs. Fried meat. Eduardo. Sausage. Bologna and other processed lunch meats. Salami. Fatback. Hotdogs. Bratwurst. Salted nuts and seeds. Canned beans with added salt. Canned or smoked fish. Whole eggs or egg yolks. Chicken or turkey with skin. Dairy Whole or 2% milk, cream, and [id number]. Whole or full-fat cream cheese. Whole-fat or sweetened yogurt. Full-fat cheese. Nondairy creamers. Whipped toppings. Processed cheese and cheese spreads. Fats and oils Butter. Stick margarine. Lard. Shortening. Ghee. Eduardo fat. Tropical oils, such as coconut, palm kernel, or palm oil. Seasoning and other foods Salted popcorn and pretzels. Onion salt, garlic salt, seasoned salt, table salt, and sea salt. Worcestershire sauce. Tartar sauce. Barbecue sauce. Teriyaki sauce. Soy sauce, including reduced-sodium. Steak sauce. Canned and packaged gravies. Fish sauce. Oyster sauce. Cocktail sauce. Horseradish that you find on the shelf. Ketchup. Mustard. Meat flavorings and tenderizers. Bouillon cubes. Hot sauce and Tabasco sauce. Premade or packaged marinades. Premade or packaged taco seasonings. Relishes. Regular salad dressings. Where to find more information: National Heart, Lung, and Blood [place]: www.nhlbi.nih.gov [place] [employer] Association: www.heart.org Summary The DASH eating plan is a healthy eating plan that has been shown to reduce high blood pressure (hypertension). It may also reduce your risk for type 2 diabetes, heart disease, and stroke. With the DASH eating plan, you should limit salt (sodium) intake to 2,300 mg a day. If you have hypertension, you may need to reduce your sodium intake to 1,500 mg a day. When on the DASH eating plan, aim to eat more fresh fruits and vegetables, whole grains, lean proteins, low-fat dairy, and heart-healthy fats. Work with your health care provider or diet and claims support specialist (dietitian) to adjust your eating plan to your individual calorie needs. This information is not intended to replace advice given to you by your health care provider. Make sure you discuss any questions you have with your health care provider. Document Released: 04/04/2012 Document Revised: 03/29/2018 Document Reviewed: 04/09/2017 [employer] Patient Education 2020 [employer]. 02/23/2022 10:21:13 BMI for Adults BMI for Adults Body mass index (BMI) is a number that is calculated from a person's weight and height. BMI may help to estimate how much of a person's weight is composed of fat. BMI can help identify those who may be at higher risk for certain medical problems. How is BMI used with adults? BMI is used as a screening tool to identify possible weight problems. It is used to check whether a person is obese, overweight, healthy weight, or underweight. How is BMI calculated? BMI measures your weight and compares it to your height. This can be done either in [place] ([place] or metric measurements. Note that charts are available to help you find your BMI quickly and easily without having to do these calculations yourself. To calculate your BMI in [place] measurements, your health care provider will: 1.Measure your weight in pounds (lb). 2.Multiply the number of pounds by 703. For example, for a person who weighs 180 lb, multiply that number by 703, which equals 126,540. 3.Measure your height in inches (in). Then multiply that number by itself to get a measurement called inches squared. For example, for a person who is 70 in tall, the inches squared measurement is 70 in x 70 in, which equals 4900 inches squared. 4.Divide the total from Step 2 (number of lb x 703) by the total from Step 3 (inches squared): 126,540 4900 = 25.8. This is your BMI. To calculate your BMI in metric measurements, your health care provider will: 1.Measure your weight in kilograms (kg). 2.Measure your height in meters (m). Then multiply that number by itself to get a measurement called meters squared. For example, for a person who is 1.75 m tall, the meters squared measurement is 1.75 m x 1.75 m, which is equal to 3.1 meters squared. 3.Divide the number of kilograms (your weight) by the meters squared number. In this example: 70 3.1 = 22.6. This is your BMI. How is BMI interpreted? To interpret your results, your health care provider will use BMI charts to identify whether you are underweight, normal weight, overweight, or obese. The following guidelines will be used: Underweight: BMI less than 18.5. Normal weight: BMI between 18.5 and 24.9. Overweight: BMI between 25 and 29.9. Obese: BMI of 30 and above. Please note: Weight includes both fat and muscle, so someone with a muscular build, such as an athlete, may have a BMI that is higher than 24.9. In cases like these, BMI is not an accurate measure of body fat. To determine if excess body fat is the cause of a BMI of 25 or higher, further assessments may need to be done by a health care provider. BMI is usually interpreted in the same way for men and women. Why is BMI a useful tool? BMI is useful in two ways: Identifying a weight problem that may be related to a medical condition, or that may increase the risk for medical problems. Promoting lifestyle and diet changes in order to reach a healthy weight. Summary Body mass index (BMI) is a number that is calculated from a person's weight and height. BMI may help to estimate how much of a person's weight is composed of fat. BMI can help identify those who may be at higher risk for certain medical problems. BMI can be measured using [place] measurements or metric measurements. To interpret your results, your health care provider will use BMI charts to identify whether you are underweight, normal weight, overweight, or obese. This information is not intended to replace advice given to you by your health care provider. Make sure you discuss any questions you have with your health care provider. Document Released: 12/26/2004 Document Revised: 03/29/2018 Document Reviewed: 02/27/2018 [employer] Patient Education 2019 [employer]. [facility] [place] 02-23-2022 Hospital Discharge instructions Patient Education 02/23/2022 09:36:31 Cervical Radiculopathy Cervical Radiculopathy Cervical radiculopathy happens when a nerve in the neck (a cervical nerve) is pinched or bruised. This condition can happen because of an injury to the cervical spine (vertebrae) in the neck, or as part of the normal aging process. Pressure on the cervical nerves can cause pain or numbness that travels from the neck all the way down into the arm and fingers. Usually, this condition gets better with rest. Treatment may be needed if the condition does not improve. What are the causes? This condition may be caused by: A neck injury. A bulging (herniated) disk. Muscle spasms. Muscle tightness in the neck because of overuse. Arthritis. Breakdown or degeneration in the bones and joints of the spine (spondylosis) due to aging. Bone spurs that may develop near the cervical nerves. What are the signs or symptoms? Symptoms of this condition include: Pain. The pain may travel from the neck to the arm and hand. The pain can be severe or irritating. It may be worse when you move your neck. Numbness or tingling in your arm or hand. Weakness in the affected arm and hand, in severe cases. How is this diagnosed? This condition may be diagnosed based on your symptoms, your medical history, and a physical exam. You may also have tests, including: X-rays. A CT scan. An MRI. An electromyogram (EMG). Nerve conduction tests. How is this treated? In many cases, treatment is not needed for this condition. With rest, the condition usually gets better over time. If treatment is needed, options may include: Wearing a soft neck collar (cervical collar) for short periods of time, as told by your health care provider. Doing physical therapy to strengthen your neck muscles. Taking medicines, such as NSAIDs or oral corticosteroids. Having spinal injections, in severe cases. Having surgery. This may be needed if other treatments do not help. Different types of surgery may be done depending on the cause of this condition. Follow these instructions at home: If you have a cervical collar: Wear it as told by your health care provider. Remove it only as told by your health care provider. Ask your health care provider if you can remove the collar for cleaning and bathing. If you are allowed to remove the collar for cleaning or bathing: ?Follow instructions from your health care provider about how to remove the collar safely. ?Clean the collar by wiping it with mild soap and water and drying it completely. ?Take out any removable pads in the collar every 1 2 days, and wash them by hand with soap and water. Let them air-dry completely before you put them back in the collar. ?Check your skin under the collar for irritation or sores. If you see any, tell your health care provider. Managing pain Take mwai-hsq-nnadwid and prescription medicines only as told by your health care provider. If directed, put ice on the affected area. ?If you have a soft neck collar, remove it as told by your health care provider. ?Put ice in a plastic bag. ?Place a towel between your skin and the bag. ?Leave the ice on for 20 minutes, 2 3 times a day. If applying ice does not help, you can try using heat. Use the heat source that your health care provider recommends, such as a moist heat pack or a heating pad. ?Place a towel between your skin and the heat source. ?Leave the heat on for 20 30 minutes. ?Remove the heat if your skin turns bright red. This is especially important if you are unable to feel pain, heat, or cold. You may have a greater risk of getting burned. Try a gentle neck and shoulder massage to help relieve symptoms. Activity Rest as needed. Return to your normal activities as told by your health care provider. Ask your health care provider what activities are safe for you. Do stretching and strengthening exercises as told by your health care provider or physical therapist. Do not lift anything that is heavier than 10 lb (4.5 kg) until your health care provider tells you that it is safe. General instructions Use a flat pillow when you sleep. Do not drive while wearing a cervical collar. If you do not have a cervical collar, ask your health care provider if it is safe to drive while your neck heals. Ask your health care provider if the medicine prescribed to you requires you to avoid driving or using heavy machinery. Do not use any products that contain nicotine or tobacco, such as cigarettes, e-cigarettes, and chewing tobacco. These can delay healing. If you need help quitting, ask your health care provider. Keep all follow-up visits as told by your health care provider. This is important. Contact a health care provider if: Your condition does not improve with treatment. Get help right away if: Your pain gets much worse and cannot be controlled with medicines. You have weakness or numbness in your hand, arm, face, or leg. You have a high fever. You have a stiff, rigid neck. You lose control of your bowels or your bladder (have incontinence). You have trouble with walking, balance, or speaking. Summary Cervical radiculopathy happens when a nerve in the neck is pinched or bruised. A nerve can get pinched from a bulging disk, arthritis, muscle spasms, or an injury to the neck. Symptoms include pain, tingling, or numbness radiating from the neck into the arm or hand. Weakness can also occur in severe cases. Treatment may include rest, wearing a cervical collar, and physical therapy. Medicines may be prescribed to help with pain. In severe cases, injections or surgery may be needed. This information is not intended to replace advice given to you by your health care provider. Make sure you discuss any questions you have with your health care provider. Document Released: 01/09/2002 Document Revised: 03/07/2019 Document Reviewed: 03/07/2019 [employer] Patient Education 2020 [employer]. 02/23/2022 09:36:23 Tinnitus Tinnitus Tinnitus refers to hearing a sound when there is no actual source for that sound. This is often described as ringing in the ears. However, people with this condition may hear a variety of noises, in one ear or in both ears. The sounds of tinnitus can be soft, loud, or somewhere in between. Tinnitus can last for a few seconds or can be constant for days. It may go away without treatment and come back at various times. When tinnitus is constant or happens often, it can lead to other problems, such as trouble sleeping and trouble concentrating. Almost everyone experiences tinnitus at some point. Tinnitus that is long-lasting (chronic) or comes back often (recurs) may require medical attention. What are the causes? The cause of tinnitus is often not known. In some cases, it can result from other problems or conditions, including: Exposure to loud noises from machinery, music, or other sources. Hearing loss. Ear or sinus infections. Earwax buildup. An object (foreign body) stuck in the ear. Taking certain medicines. Drinking alcohol or caffeine. High blood pressure. Heart diseases. Anemia. Allergies. Meniere's disease. Thyroid problems. Tumors. A weak, bulging blood vessel (aneurysm) near the ear. Depression or other mood disorders. What are the signs or symptoms? The main symptom of tinnitus is hearing a sound when there is no source for that sound. It may sound like: Buzzing. Roaring. Ringing. Blowing air, like the sound heard when you listen to a seashell. Hissing. Whistling. Sizzling. Humming. Running water. A musical note. Tapping. Symptoms may affect only one ear (unilateral) or both ears (bilateral). How is this diagnosed? Tinnitus is diagnosed based on your symptoms, your medical history, and a physical exam. Your health care provider may do a thorough hearing test (audiologic exam) if your tinnitus: Is unilateral. Causes hearing difficulties. Lasts 6 months or longer. You may work with a health care provider who specializes in hearing disorders (manager recovery). You may be asked questions about your symptoms and how they affect your daily life. You may have other tests done, such as: CT scan. MRI. An imaging test of how blood flows through your blood vessels (angiogram). How is this treated? Treating an underlying medical condition can sometimes make tinnitus go away. If your tinnitus continues, other treatments may include: Medicines, such as antidepressants or sleeping aids. Sound generators to mask the tinnitus. These include: ?Tabletop sound machines that play relaxing sounds to help you fall asleep. ?Wearable devices that fit in your ear and play sounds or music. ?Acoustic neural stimulation. This involves using headphones to listen to music that contains an auditory signal. Over time, listening to this signal may change some pathways in your brain and make you less sensitive to tinnitus. This treatment is used for very severe cases when no other treatment is working. Therapy and counseling to help you manage the stress of living with tinnitus. Using hearing aids or cochlear implants if your tinnitus is related to hearing loss. Hearing aids are worn in the outer ear. Cochlear implants are surgically placed in the inner ear. Follow these instructions at home: Managing symptoms When possible, avoid being in loud places and being exposed to loud sounds. Wear hearing protection, such as earplugs, when you are exposed to loud noises. Use a white noise machine, a humidifier, or other devices to mask the sound of tinnitus. Practice techniques for reducing stress, such as meditation, yoga, or deep breathing. Work with your health care provider if you need help with managing stress. Sleep with your head slightly raised. This may reduce the impact of tinnitus. General instructions Do not use stimulants, such as nicotine, alcohol, or caffeine. Talk with your health care provider about other stimulants to avoid. Stimulants are substances that can make you feel alert and attentive by increasing certain activities in the body (such as heart rate and blood pressure). These substances may make tinnitus worse. Take nccc-pqu-mhyyqvk and prescription medicines only as told by your health care provider. Try to get plenty of sleep each night. Keep all follow-up visits as told by your health care provider. This is important. Contact a health care provider if: Your tinnitus continues for 3 weeks or longer without stopping. Your symptoms get worse or do not get better with home care. You develop tinnitus after a head injury. You have tinnitus along with any of the following: ?Dizziness. ?Loss of balance. ?Nausea and vomiting. Summary Tinnitus refers to hearing a sound when there is no actual source for that sound. This is often described as ringing in the ears. Symptoms may affect only one ear (unilateral) or both ears (bilateral). Use a white noise machine, a humidifier, or other devices to mask the sound of tinnitus. Do not use stimulants, such as nicotine, alcohol, or caffeine. Talk with your health care provider about other stimulants to avoid. These substances may make tinnitus worse. This information is not intended to replace advice given to you by your health care provider. Make sure you discuss any questions you have with your health care provider. Document Released: 04/16/2006 Document Revised: 03/29/2018 Document Reviewed: 01/24/2018 [employer] Patient Education 2020 [employer] Follow Up Care 01/24/2022 08:32:02 With:MIK REDDY CNP Address: [address] [place] [address] When:3 months [facility] [place] 10-20-2021 Hospital Discharge instructions Patient Education 10/20/2021 13:06:51 Budget-Friendly Healthy Eating Budget-Friendly Healthy Eating There are many ways to save money at the grocery store and continue to eat healthy. You can be successful if you: Plan meals according to your budget. Make a grocery list and only purchase food according to your grocery list. Prepare food yourself. What are tips for following this plan? Reading food labels Compare food labels between brand name foods and the store brand. Often the nutritional value is the same, but the store brand is lower cost. Look for products that do not have added sugar, fat, or salt (sodium). These often cost the same but are healthier for you. Products may be labeled as: ?Sugar-free. ?Nonfat. ?Low-fat. ?Sodium-free. ?Low-sodium. Look for lean ground beef labeled as at least 92% lean and 8% fat. Shopping Buy only the items on your grocery list and go only to the areas of the store that have the items on your list. Use coupons only for foods and brands you normally buy. Avoid buying items you wouldn't normally buy simply because they are on sale. Check online and in newspapers for weekly deals. Buy healthy items from the bulk bins when available, such as herbs, spices, flour, pasta, nuts, and dried fruit. Buy fruits and vegetables that are in season. Prices are usually lower on in-season produce. Look at the unit herman on the herman tag. Use it to compare different brands and sizes to find out which item is the best deal. Choose healthy items that are often low-cost, such as carrots, potatoes, apples, bananas, and oranges. Dried or canned beans are a low-cost protein source. Buy in bulk and freeze extra food. Items you can buy in bulk include meats, fish, poultry, frozen fruits, and frozen vegetables. Avoid buying jujru-fv-ram foods, such as pre-cut fruits and vegetables and pre-made salads. If possible, shop around to discover where you can find the best prices. Consider other retailers such as dollar stores, larger wholesale stores, local fruit and vegetable [employer], and [employer] markets. Do not shop when you are hungry. If you shop while hungry, it may be hard to stick to your list and budget. Resist impulse buying. Use your grocery list as your official plan for the week. Buy a variety of vegetables and fruits by purchasing fresh, frozen, and canned items. Look at the top and bottom shelves for deals. Foods at eye level (eye level of an adult or child) are usually more expensive. Be efficient with your time when shopping. The more time you spend at the store, the more money you are likely to spend. To save money when choosing more expensive foods like meats and dairy: ?Choose cheaper cuts of meat, such as bone-in chicken thighs and drumsticks instead of skinless and boneless chicken. When you are ready to prepare the chicken, you can remove the skin yourself to make it healthier. ?Choose lean meats like chicken or turkey instead of beef. ?Choose canned seafood, such as tuna, salmon, or sardines. ?Buy eggs as a low-cost source of protein. ?Buy dried beans and peas, such as lentils, split peas, or kidney beans instead of meats. Dried beans and peas are a good alternative source of protein. ?Buy the larger tubs of yogurt instead of individual-sized containers. Choose water instead of sodas and other sweetened beverages. Avoid buying chips, cookies, and other junk food. These items are usually expensive and not healthy. Cooking Make extra food and freeze the extras in meal-sized containers or in individual portions for fast meals and snacks. Pre-cook on days when you have extra time to prepare meals in advance. You can keep these meals in the fridge or freezer and reheat for a quick meal. When you come home from the grocery store, wash, peel, and cut fruits and vegetables so they are ready to use and eat. This will help reduce food waste. Meal planning Do not eat out or get fast food. Prepare food at home. Make a grocery list and make sure to bring it with you to the store. If you have a smart phone, you could use your phone to create your shopping list. Plan meals and snacks according to a grocery list and budget you create. Use leftovers in your meal plan for the week. Look for recipes where you can cook once and make enough food for two meals. Include budget-friendly meals like stews, casseroles, and stir-taylor dishes. Try some meatless meals or try no cook meals like salads. Make sure that half your plate is filled with fruits or vegetables. Choose from fresh, frozen, or canned fruits and vegetables. If eating canned, remember to rinse them before eating. This will remove any excess salt added for packaging. Summary Eating healthy on a budget is possible if you plan your meals according to your budget, purchase according to your budget and grocery list, and prepare food yourself. Tips for buying more food on a limited budget include buying generic brands, using coupons only for foods you normally buy, and buying healthy items from the bulk bins when available. Tips for buying cheaper food to replace expensive food include choosing cheaper, lean cuts of meat, and buying dried beans and peas. This information is not intended to replace advice given to you by your health care provider. Make sure you discuss any questions you have with your health care provider. Document Released: 12/18/2014 Document Revised: 04/17/2018 Document Reviewed: 04/17/2018 [employer] Patient Education 2020 [employer]. 10/20/2021 13:06:50 BMI for Adults BMI for Adults Body mass index (BMI) is a number that is calculated from a person's weight and height. BMI may help to estimate how much of a person's weight is composed of fat. BMI can help identify those who may be at higher risk for certain medical problems. How is BMI used with adults? BMI is used as a screening tool to identify possible weight problems. It is used to check whether a person is obese, overweight, healthy weight, or underweight. How is BMI calculated? BMI measures your weight and compares it to your height. This can be done either in [place] or metric measurements. Note that charts are available to help you find your BMI quickly and easily without having to do these calculations yourself. To calculate your BMI in [place] measurements, your health care provider will: 1.Measure your weight in pounds (lb). 2.Multiply the number of pounds by 703. For example, for a person who weighs 180 lb, multiply that number by 703, which equals 126,540. 3.Measure your height in inches (in). Then multiply that number by itself to get a measurement called inches squared. For example, for a person who is 70 in tall, the inches squared measurement is 70 in x 70 in, which equals 4900 inches squared. 4.Divide the total from Step 2 (number of lb x 703) by the total from Step 3 (inches squared): 126,540 4900 = 25.8. This is your BMI. To calculate your BMI in metric measurements, your health care provider will: 1.Measure your weight in kilograms (kg). 2.Measure your height in meters (m). Then multiply that number by itself to get a measurement called meters squared. For example, for a person who is 1.75 m tall, the meters squared measurement is 1.75 m x 1.75 m, which is equal to 3.1 meters squared. 3.Divide the number of kilograms (your weight) by the meters squared number. In this example: 70 3.1 = 22.6. This is your BMI. How is BMI interpreted? To interpret your results, your health care provider will use BMI charts to identify whether you are underweight, normal weight, overweight, or obese. The following guidelines will be used: Underweight: BMI less than 18.5. Normal weight: BMI between 18.5 and 24.9. Overweight: BMI between 25 and 29.9. Obese: BMI of 30 and above. Please note: Weight includes both fat and muscle, so someone with a muscular build, such as an athlete, may have a BMI that is higher than 24.9. In cases like these, BMI is not an accurate measure of body fat. To determine if excess body fat is the cause of a BMI of 25 or higher, further assessments may need to be done by a health care provider. BMI is usually interpreted in the same way for men and women. Why is BMI a useful tool? BMI is useful in two ways: Identifying a weight problem that may be related to a medical condition, or that may increase the risk for medical problems. Promoting lifestyle and diet changes in order to reach a healthy weight. Summary Body mass index (BMI) is a number that is calculated from a person's weight and height. BMI may help to estimate how much of a person's weight is composed of fat. BMI can help identify those who may be at higher risk for certain medical problems. BMI can be measured using [place] measurements or metric measurements. To interpret your results, your health care provider will use BMI charts to identify whether you are underweight, normal weight, overweight, or obese. This information is not intended to replace advice given to you by your health care provider. Make sure you discuss any questions you have with your health care provider. Document Released: 12/26/2004 Document Revised: 03/29/2018 Document Reviewed: 02/27/2018 [employer] Patient Education 2020 [employer]. 10/20/2021 13:06:49 Elbow Bursitis Elbow Bursitis Bursitis is swelling and pain at the tip of the elbow. This happens when fluid builds up in a sac under the skin (bursa). This may also be called olecranon bursitis. What are the causes? Elbow bursitis may be caused by: Elbow injury, such as falling onto the elbow. Leaning on hard surfaces for long periods of time. Infection from an injury that breaks the skin near the elbow. A bone growth (spur) that forms at the tip of the elbow. A medical condition that causes inflammation, such as gout or rheumatoid arthritis. Sometimes the cause is not known. What are the signs or symptoms? The first sign of elbow bursitis is usually swelling at the tip of the elbow. This can grow to be about the size of a golf ball. Swelling may start suddenly or develop gradually. Other symptoms may include: Pain when bending or leaning on the elbow. Not being able to move the elbow normally. If bursitis is caused by an infection, you may have: Redness, warmth, and tenderness of the elbow. Drainage of pus from the swollen area over the elbow, if the skin breaks open. How is this diagnosed? This condition may be diagnosed based on: Your symptoms and medical history. Any recent injuries you have had. A physical exam. X-rays to check for a bone spur or fracture. Draining fluid from the bursa to test it for infection. Blood tests to rule out gout or rheumatoid arthritis. How is this treated? Treatment for elbow bursitis depends on the cause. Treatment may include: Medicines. These may include: ?Bena-dpn-caojxuv medicines to relieve pain and inflammation. ?Antibiotic medicines. ?Injections of anti-inflammatory medicines (steroids). Draining fluid from the bursa. Wrapping your elbow with a bandage. Wearing elbow pads. If these treatments do not help, you may need surgery to remove the bursa. Follow these instructions at home: Medicines Take kkzh-toa-ymwbzce and prescription medicines only as told by your health care provider. If you were prescribed an antibiotic medicine, take it as told by your health care provider. Do not stop taking the antibiotic even if you start to feel better. Managing pain, stiffness, and swelling If directed, put ice on your elbow: ?Put ice in a plastic bag. ?Place a towel between your skin and the bag. ?Leave the ice on for 20 minutes, 2 3 times a day. If your bursitis is caused by an injury, rest your elbow and wear your bandage as told by your health care provider. Use elbow pads or elbow wraps to cushion your elbow as needed. General instructions Avoid any activities that cause elbow pain. Ask your health care provider what activities are safe for you. Keep all follow-up visits as told by your health care provider. This is important. Contact a health care provider if you have: A fever. Symptoms that do not get better with treatment. Pain or swelling that: ?Gets worse. ?Goes away and then comes back. Pus draining from your elbow. Get help right away if you have: Trouble moving your arm, hand, or fingers. Summary Elbow bursitis is inflammation of the fluid-filled sac (bursa) between the tip of your elbow bone (olecranon) and your skin. Treatment for elbow bursitis depends on the cause. It may include medicines to relieve pain and inflammation, antibiotic medicines, and draining fluid from your elbow. Contact a health care provider if your symptoms do not get better with treatment, or if your symptoms go away and then come back. This information is not intended to replace advice given to you by your health care provider. Make sure you discuss any questions you have with your health care provider. Document Released: 05/16/2007 Document Revised: 03/29/2018 Document Reviewed: 03/26/2018 [employer] Patient Education 2020 [employer]. 10/20/2021 13:06:47 Bursitis Bursitis Bursitis is inflammation and irritation of a bursa, which is one of the small, fluid-filled sacs that cushion and protect the moving parts of your body. These sacs are located between bones and muscles, bones and muscle attachments, or bones and skin areas that are next to bones. A bursa protects those structures from the wear and tear that results from frequent movement. An inflamed bursa causes pain and swelling. Fluid may build up inside the sac. Bursitis is most common near joints, especially the knees, elbows, hips, and shoulders. What are the causes? This condition may be caused by: Injury from: ?A direct hit (blow), like falling on your knee or elbow. ?Overuse of a joint (repetitive stress). Infection. This can happen if bacteria get into a bursa through a cut or scrape near a joint. Diseases that cause joint inflammation, such as gout and rheumatoid arthritis. What increases the risk? You are more likely to develop this condition if you: Have a job or hobby that involves a lot of repetitive stress on your joints. Have a condition that weakens your body's defense system (immune system), such as diabetes, cancer, or HIV. Do any of these often: ?Lift and reach overhead. ?Kneel or lean on hard surfaces. ?Run or walk. What are the signs or symptoms? The most common symptoms of this condition include: Pain that gets worse when you move the affected body part or use it to support (bear) your body weight. Inflammation. Stiffness. Other symptoms include: Redness. Swelling. Tenderness. Warmth. Pain that continues after rest. Fever or chills. These may occur in bursitis that is caused by infection. How is this diagnosed? This condition may be diagnosed based on: Your medical history and a physical exam. Imaging tests, such as an MRI. A procedure to drain fluid from the bursa with a needle (aspiration). The fluid may be checked for signs of infection or gout. Blood tests to rule out other causes of inflammation. How is this treated? This condition can usually be treated at home with rest, ice, applying pressure (compression), and raising the body part that is affected (elevation). This is called RICE therapy. For mild bursitis, RICE therapy may be all you need. Other treatments may include: NSAIDs to treat pain and inflammation. Corticosteroid medicines to fight inflammation. These medicines may be injected into and around the area of bursitis. Aspiration of fluid from the bursa to relieve pain and improve movement. Antibiotic medicine to treat an infected bursa. A splint, brace, or walking aid, such as a cane. Physical therapy if you continue to have pain or limited movement. Surgery to remove a damaged or infected bursa. This may be needed if other treatments have not worked. Follow these instructions at home: Medicines Take igjm-uog-qyepnqu and prescription medicines only as told by your health care provider. If you were prescribed an antibiotic medicine, take it as told by your health care provider. Do not stop taking the antibiotic even if you start to feel better. General instructions Rest the affected area as told by your health care provider. ?If possible, raise (elevate) the affected area above the level of your heart while you are sitting or lying down. ?Avoid activities that make pain worse. Use splints, braces, pads, or walking aids as told by your health care provider. If directed, put ice on the affected area: ?If you have a removable splint or brace, remove it as told by your health care provider. ?Put ice in a plastic bag. ?Place a towel between your skin and the bag or between your splint or brace and the bag. ?Leave the ice on for 20 minutes, 2 3 times a day. Keep all follow-up visits as told by your health care provider. This is important. Preventing future episodes Take actions to help prevent future episodes of bursitis. Wear knee pads if you kneel often. Wear sturdy running or walking shoes that fit you well. Take breaks regularly from repetitive activity. Warm up by stretching before doing any activity that takes a lot of effort. Maintain a healthy weight or lose weight as recommended by your health care provider. If you need help doing this, ask your health care provider. Exercise regularly. Start any new physical activity gradually. Contact a health care provider if you: Have a fever. Have chills. Have bursitis that is not getting better with treatment or home care. Summary Bursitis is inflammation and irritation of a bursa, which is one of the small, fluid-filled sacs that cushion and protect the moving parts of your body. An inflamed bursa causes pain and swelling. Bursitis is commonly diagnosed with a physical exam, but other tests are sometimes needed. This condition can usually be treated at home with rest, ice, applying pressure (compression), and raising the body part that is affected (elevation). This is called RICE therapy. This information is not intended to replace advice given to you by your health care provider. Make sure you discuss any questions you have with your health care provider. Document Released: 04/13/2001 Document Revised: 03/29/2018 Document Reviewed: 03/01/2018 [employer] Patient Education 2020 [employer] Follow Up Care 10/20/2021 08:18:16 With:MIK REDDY CNP Address: [address] [place] [address] [address] [place] [address] When: only if needed [facility] 09-23-2021 Hospital Discharge instructions Follow Up Care 09/23/2021 10:50:13 With:MIK REDDY CNP Address: [address] [place] [address] [address] [place] [address] When:3 months [facility] 08-01-2021 Evaluation + Plan note Future Scheduled ZxuhwNutM9b //22PSA Screen, Total 22TSH With T4fr Reflex //22Lipid Panel 08/01/21CT Chest w/o Contrast 08/26/22 [facility] 02-28-2020 Evaluation + Plan note Future Appointments Appointment Date:07/04/2022 08:00:00 AM Scheduled Provider: Location:[facility] Appointment Type:CV Echo () Appointment Date:02/27/2023 09:30:00 AM Scheduled Provider: Location:[facility] Appointment Type:FM Medicare Wellness Subsequent Future Scheduled ApbxnKlcA1v //22PSA Screen, Total 08/01/22TSH With T4fr Reflex //22CBC w/ Auto Diff 02/23/22Lipid Panel 08/01/21CT Chest w/o Contrast 08/26/22Echo Transthoracic Complete 07/04/22 [facility] Evaluation + Plan note Future Appointments Appointment Date:09/02/2021 07:40:00 AM Scheduled Provider:MIK REDDY CNP Location:[facility] Appointment Type: Open Future Scheduled HmynwRhzK1f //22PSA Screen, Total 08/01/22TSH With T4fr Reflex //22Lipid Panel 08/01/21CT Chest w/o Contrast 08/26/22 [facility] Evaluation + Plan note Future Appointments Appointment Date:12/13/2021 09:00:00 AM Scheduled Provider:MIK REDDY CNP Location:[facility] Appointment Type: Open Future Scheduled KzopcIwvP9a 4//22PSA Screen, Total 4//22TSH With T4fr Reflex //22Lipid Panel 08/01/21CT Chest w/o Contrast 08/26/22US Abdomen, Limited 09/12/21CT Head or Brain w/o Contrast 09/12/21 Referrals to Other Providers Referred by: MIK REDDY CNP [facility] Evaluation + Plan note Future Appointments Appointment Date:09/21/2021 07:30:00 AM Scheduled Provider: Location:[facility] Appointment Type:PUL Pulmonary Function Test (FT) Appointment Date:12/13/2021 09:00:00 AM Scheduled Provider:MIK REDDY CNP Location:[facility] Appointment Type: Open Future Scheduled WwapmIsbQ8s 4//22PSA Screen, Total 4/22TSH With T4fr Reflex 4//22Lipid Panel 4CT Chest w/o Contrast 08/26/22 [facility] Evaluation + Plan note Future Appointments Appointment Date:12/13/2021 09:00:00 AM Scheduled Provider:MIK REDDY CNP Location:[facility] Appointment Type: Open Future Scheduled XmuldQlmX0v 4//22PSA Screen, Total 4//22TSH With T4fr Reflex //22Lipid Panel /08/19CT Chest w/o Contrast 08/26/22 [facility] Evaluation + Plan note Future Appointments Appointment Date:12/13/2021 09:00:00 AM Scheduled Provider:MIK REDDY CNP Location:[facility] Appointment Type: Open Future Scheduled PzzjoHnpM0u 4//22PSA Screen, Total 4//22TSH With T4fr Reflex 4//22Lipid Panel //CT Chest w/o Contrast 08/26/22 Referrals to Other Providers Referred by: MIK REDDY CNP [facility] Evaluation + Plan note Future Appointments Appointment Date:12/13/2021 09:00:00 AM Scheduled Provider:MIK REDDY CNP Location:[facility] Appointment Type: Open Future Scheduled BmtbpNhdR4o //PSA Screen, Total 08/01/21TSH With T4fr Reflex //22Lipid Panel 08/01/21CT Chest w/o Contrast 08/26/22XR Elbow 3+ Views Right 10/20/21 [facility] Evaluation + Plan note Future Appointments Appointment Date:12/13/2021 09:00:00 AM Scheduled Provider:MIK REDDY CNP Location:[facility] Appointment Type: Open Future Scheduled KrulfNupN2k //PSA Screen, Total 08/01/21TSH With T4fr Reflex //Lipid Panel 08/01/21CT Chest w/o Contrast 08/26/22 [facility] Evaluation + Plan note Future Appointments Appointment Date:02/23/2022 09:00:00 AM Scheduled Provider:MIK REDDY CNP Location:[facility] Appointment Type: Open Future Scheduled SjhufZonP7a //PSA Screen, Total 08/01/21TSH With T4fr Reflex 22Lipid Panel 08/01/21CT Chest w/o Contrast 08/26/22 [facility] Evaluation + Plan note Future Appointments Appointment Date:05/26/2022 09:00:00 AM Scheduled Provider:MIK REDDY CNP Location:[facility] Appointment Type: Open Appointment Date:02/27/2023 09:30:00 AM Scheduled Provider: Location:[facility] Appointment Type: Medicare Wellness Subsequent Future Scheduled CbiqjSoxT6r //22PSA Screen, Total 422TSH With T4fr Reflex //22CBC w/ Auto Diff 02/23/22Lipid Panel 08/01/21CT Chest w/o Contrast 08/26/22 [facility] Evaluation + Plan note Future Appointments Appointment Date:02/27/2023 09:30:00 AM Scheduled Provider: Location:[facility] Appointment Type: Medicare Wellness Subsequent Future Scheduled NrviuAnjO0d 4//22PSA Screen, Total 422TSH With T4fr Reflex 4//22CBC w/ Auto Diff 02/23/22Lipid Panel /08/19CT Chest w/o Contrast 08/26/22Echo Transthoracic Complete 05/30/22ECG Stress Exercise 05/30/22 [facility] [place] Evaluation + Plan note Future Appointments Appointment Date:06/12/2022 08:00:00 AM Scheduled Provider: Location:[facility] Appointment Type:CV Stress () Appointment Date:07/04/2022 08:00:00 AM Scheduled Provider: Location:[facility] Appointment Type:CV Echo () Appointment Date:02/27/2023 09:30:00 AM Scheduled Provider: Location:[facility] Appointment Type: Medicare Wellness Subsequent Future Scheduled BjbhsKusJ7d 4//22PSA Screen, Total 422TSH With T4fr Reflex 4//22CBC w/ Auto Diff 02/23/22Lipid Panel 08/01/21CT Chest w/o Contrast 08/26/22Echo Transthoracic Complete 07/04/22ECG Stress Exercise 06/12/22 [facility] [place] Evaluation + Plan note Future Appointments Appointment Date:02/27/2023 09:30:00 AM Scheduled Provider: Location:[facility] Appointment Type: Medicare Wellness Subsequent Future Scheduled XznqxHeiS3d 4//22PSA Screen, Total 4/22TSH With T4fr Reflex 4//22CBC w/ Auto Diff 02/23/22Lipid Panel /08/19CT Chest w/o Contrast 08/26/22 [facility] [place] Evaluation + Plan note Future Appointments Appointment Date:02/27/2023 09:30:00 AM Scheduled Provider: Location:[facility] Appointment Type: Medicare Wellness Subsequent Future Scheduled TestsCBC w/ Auto Diff 02/23/22 [facility] Evaluation + Plan note Future Appointments Appointment Date:02/27/2023 09:30:00 AM Scheduled Provider: Location:[facility] Appointment Type: Medicare Wellness Subsequent Appointment Date:03/05/2023 08:20:00 AM Scheduled Provider:Karen [facility] App[facility] Type: Open Future Scheduled TestsCBC w/ Auto Diff 02/23/22 [facility] Evaluation + Plan note Future Appointments Appointment Date:03/26/2023 09:20:00 AM Scheduled Provider:Karen Garduno Location:[facility] Appointment Type: Open [facility] Hospital course Narrative No data available for this section [facility] Hospital Discharge instructions No data available for this section [facility] Progress note No data available for this section [facility] [place] Reason for referral (narrative) Referred by: MIK REDDY CNP [facility] Reason for Referral Referred by: MIK REDDY CNP Summary Purpose Family History No Family History Records FoundNo Family History Records Found No data available for this section No data available for this section No Family History Records FoundNo Family History Records Found Advance Directives No Advanced Directives Records FoundNo Advanced Directives Records FoundNo Advanced Directives Records FoundNo Advanced Directives Records Found Additional Source Comments Care Team (unrecognized sect ion and content) Personnel Name: MIK REDDY CNP Address: [address] [place], [place] [phone] Personnel Name: MIK REDDY CNP Address: [address] [place], [place] [phone] Personnel Name: MIK REDDY CNP Address: [address] [place], [place] [phone] Personnel Name: MIK REDDY CNP Address: Address: [address] [place], [place] [phone] Personnel Name: MIK REDDY CNP Address: Address: [address] [place], [place] [phone] Personnel Name: MIK REDDY CNP Address: Address: [address] [place], [place] [phone] Personnel Name: MIK REDDY CNP Address: Address: [address] [place], [place] [phone] Personnel Name: MIK REDDY CNP Address: Address: [address] [place], [place] [phone] Personnel Name: MIK REDDY CNP Address: Address: [address] [facility] [address] [place] [address] Personnel Name: MIK REDDY CNP Address: Address: [address] [facility] [address] [place] [phone] Personnel Name: MIK REDDY CNP Address: Address: [address] [place] [address] Personnel Name: Karen Garduno Address: Address: [address] [place] [address]- Personnel Name: Karen Garduno Address: Address: [address] [place] [address]- Personnel Name: Karen Garduno Address: Address: [address] [place] [address]- (unrecognized sect ion and content) No Status Records FoundNo Status Records FoundNo Status Records FoundNo Status Records Found INFORMATION SOURCE (unrecogn ized section and content) DATE CREATED AUTHOR 01/29/2022 [facility] DATE CREATED AUTHOR AUTHOR'S ORGANIZ ATION 07/07/2022 [facility] DATE CREATED AUTHOR AUTHOR'S ORGANIZ ATION 04/26/2023 [facility] DATE CREATED AUTHOR AUTHOR'S ORGANIZ ATION 05/29/2023 [facility] EPIC FOR RECORDS PERTAINING TO PATIENTS WHO ARE OR HAVE BEEN ENROLLED IN A CHEMICAL DEPENDENCY/SUBSTANCEABUSE PROGRAM, SOME INFORMATION MAY BE OMITTED. This clinical summary was aggregated from multiple sources. Caution should be exercised in using it in the provision of clinical care. This summary normalizes information from multiple sources, and as a consequence, information in this document may materially change the coding, format and clinical context of patient data. In addition, data may be omitted in some cases. CLINICAL DECISIONS SHOULD BE BASED ON THE PRIMARY CLINICAL RECORDS. [employer] provides no warranty or guarantee of the accuracy or completeness of information in this document.
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
--- NOTE | 2023-06-21 12:42 | ECG_ITS ---
[facility] Test Date: 2023-06-21 Pat Name: GILBERT PAZ Department: Room: - Gender: Male Cuff Folder: : 1965 Requested By: Order Number: [id number] Reading MD: GERDA WALLS Measurements Intervals [place] Rate: 76 P: 74 ID: [id number] QRS: 76 QRSD: 94 T: 68 QT: 382 QTc: 412 Interpretive Statements 1100 Sinus rhythm 0102 ARTIFACT PRESENT 9110 normal ECG Compared to ECG 10/22/2021 22:50:05 No significant changes Electronically Signed On 06-21-2023 22:17:11 EST by GERDA WALLS
[2023-06-21] MEDS: ALBUTEROL SULFATE 2.5 MG/3 ML VIAL NEB IH (12:54)
[2023-06-21 12:55] VITALS: PULSE 85; RESP 14
--- NOTE | 2023-06-21 12:56 | PC.NURSE ---
IV started at this time. pt tolerated poorly. pt getting very aggressive with this RN. blood able to be drawn off. and son at bedside. pt informed that covid and flu swab has been ordered. Pt states I know my nasal passages & I know that it's physically impossible to put that swab all the way back! I swear to God if you put it too far I'm gonna hurt someone! Informed pt that security will be called in if pt continues to be aggressive. and pt state that that is not needed. lab and RT at bedside as well as witnesses.
[2023-06-21 13:08] LABS: Hematocrit 42.3 % (42.0-54.0); Hemoglobin 14.4 g/dL (14.0-18.0); Mean Corpuscular Hemoglobin 31.6 pg (25.9-34.0); Platelet Count 244 10^3/uL (150-450); Red Blood Count 4.55 10^6/uL (4.70-6.10); Red Cell Distribution Width 11.5 % (11.0-15.0); White Blood Count 5.9 10^3/uL (4.0-11.0)
--- NOTE | 2023-06-21 13:10 | XR_ITS ---
The [address] [address] Patient Name: GILBERT PAZ MRN: [id number] date: 1965 Sex: M Assigned Patient Location: ER Current Patient Location: ER Accession/Order Number: [id number] Exam Date: 06/21/2023 13:08 Report Date: 06/21/2023 13:22 At the request of: CARMINA OLIVA Procedure: XR chest 1V EXAM: XR chest 1V at 1307 hours HISTORY: SOB COMPARISON: 10/22/2021 TECHNIQUE: AP upright portable chest x-ray FINDINGS: The heart is at the upper limits of normal in size. The vasculature is not distended. No acute infiltrate, effusion or pneumothorax is identified. The osseous structures are grossly intact. XR/XR chest 1V IMPRESSION: No acute infiltrate or evidence of cardiac decompensation. The overall appearance of the chest is essentially unchanged. Electronically authenticated by: JUAN MEMBRENO Date: 06/21/2023 13:22
[2023-06-21 13:17] LABS: Influenza Virus A Antigen Negative; Influenza Virus B Antigen Negative; Internal Control Within Normal Limits; SARS-CoV-2 Ag NEGATIVE (NEGATIVE)
[2023-06-21 13:26] LABS: Anion Gap 16.9; BUN Creatinine Ratio 9.3; Calcium 9.2 mg/dL (8.5-10.1); Carbon Dioxide 23.9 mmol/L (21.0-32.0); Chloride 103 mmol/L (98-107); Estimated GFR (African America >60 (>=60); Estimated GFR (Non-African Ame >60 (>=60); Glucose 100 mg/dL (74-106); Potassium 3.8 mmol/L (3.5-5.1); Sodium 140 mmol/L (136-145)
[2023-06-21 13:32] LABS: Segmented Neut Absolute Manual 5.19 10^3/uL (1.4-6.5)
[2023-06-21 13:33] LABS: Lymphocytes Absolute Manual 0.23 10^3/uL (1.20-3.80); Monocytes Absolute Manual 0.47 10^3/uL (0.30-0.80)
== END 2023-06-21 13:54 | disposition home or self-care (01) ==
PROVIDERS: Emergency Provider Emergency Medicine; PCP Psychiatry & Neurology Neurology
DX: R06.00 Dyspnea, unspecified (principal)
CPT/HCPCS: 36415; 71045; 80048; 84484; 85007; 85027; 87804; 87811; 93005; 94640; 99285